=== PATIENT | female | born 1940 | race Caucasian/White ===

== ENCOUNTER 2017-04-09 14:59 | Emergency (ER) | payer MEDICARE, OTHER ==
[2017-04-09 15:20] VITALS: BP 143/69
--- NOTE | 2017-04-09 16:31 | EDM.PDOC ---
ED HPI GENERAL MEDICAL PROBLEM - General Chief Complaint: Upper Extremity Injury/Pain Stated Complaint: ARM PAIN Time Seen by Provider: 04/09/17 15:48 Source of Information: Reports: Patient History Limitations: Reports: No Limitations - History of Present Illness INITIAL COMMENTS - FREE TEXT/NARRATIVE: Patient reports insertion of AV fistula on 04/04/17. For the last 2-3 days she is having numbness, tingling, cold fingers to the left side. No fever or chills , no nausea, vomiting, LOC, SOB, urinary and bowel habits normal. Forearm is red, swollen, hot, firm. She does not have a dialysis catheter, nor has the fistula been used for dialysis. No further complaints at this time. Onset: Gradual Onset Date: 04/07/17 Duration: Getting Worse Location: Reports: Upper Extremity, Left Severity: Moderate left inner middle arm Pain Score (Numeric/FACES): 6 - Related Data Allergies Allergy/AdvReac Type Severity Reaction Status Date / Time Latex, Natural Rubber Allergy Redness Verified 04/09/17 15:12 codeine AdvReac Nausea and Verified 04/09/17 15:12 Vomiting diazepam [From Valium] AdvReac Nausea and Verified 04/09/17 15:12 Vomiting seasonal Allergy Shortness Uncoded 04/09/17 15:12 of Breath tape Allergy Redness Uncoded 04/09/17 15:12 Home Meds: Home Meds Albuterol Sulfate [Albuterol Sulfate HFA] 2 inhalation IH Q4H PRN 03/19/14 [ History] Aspirin [Halfprin] 81 mg PO DAILY 03/19/14 [History] Cholecalciferol (Vitamin D3) [Vitamin D] 2,000 unit PO DAILY 03/19/14 [History] Furosemide [Lasix] 40 mg PO BID 03/19/14 [History] Hydrocodone/Acetaminophen [Hydrocodone-Acetaminophen 5-325] 1 tab PO QID PRN [History] Isosorbide Mononitrate [Imdur] 60 mg PO DAILY 03/19/14 [History] Levothyroxine 125 mcg PO DAILY 03/19/14 [History] Nitroglycerin [Nitrostat] 0.4 mg SL ASDIRECTED PRN 03/19/14 [History] Pramipexole Di-HCl [Mirapex] 0.75 mg PO ACBED 03/19/14 [History] atorvaSTATin [Lipitor] 10 mg PO BEDTIME 03/19/14 [History] Potassium Chloride [Klor-Con 10] 20 meq PO BID 06/20/15 [History] Fluticasone Propionate [Flovent HFA 44 mcg] 10.6 gm IH BID PRN 04/13/16 [ History] Spironolactone [Aldactone] 1 tab PO DAILY 04/13/16 [History] Past Medical History Cardiovascular 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: Heart Failure, High Cholesterol Genitourinary 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: Renal Disease Other Genitourinary History: fistula placed in left arm 04/04/17 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: Musculoskeletal 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: Back Pain, Chronic, Osteoarthritis Endocrine/Metabolic 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: Hypothyroidism Dermatologic 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: Other (See Below) Other Dermatologic History: bruises easily - Past Surgical History HEENT Surgical 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: Cataract Surgery, Tonsillectomy Female Surgical 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: Hysterectomy Endocrine Surgical 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: Thyroidectomy Social & Family History - Family History Family Medical History: Noncontributory - Tobacco Use Smoking Status *Q: Never Smoker - Recreational Drug Use Recreational Drug Use: No Review of Systems - Review of Systems Review Of Systems: See Below Constitutional: Reports: No Symptoms Eyes: Reports: No Symptoms Ears: Reports: No Symptoms Nose: Reports: No Symptoms Mouth/Throat: Reports: No Symptoms Respiratory: Reports: No Symptoms Cardiovascular: Reports: No Symptoms, Other (cold left hand) GI/Abdominal: Reports: No Symptoms Genitourinary: Reports: No Symptoms Musculoskeletal: Reports: Arm Pain Skin: Reports: Erythema, Wound, Change in Color Neurological: Reports: Numbness, Tingling Psychiatric: Reports: No Symptoms ED EXAM, GENERAL - Physical Exam Exam: See Below Exam Limited By: No Limitations General Appearance: Alert, WD/WN, No Apparent Distress Eye Exam: Bilateral Eye: EOMI, PERRL Head: Atraumatic, Normocephalic Neck: Normal Inspection Respiratory/Chest: No Respiratory Distress, Lungs Clear, Normal Breath Sounds, No Accessory Muscle Use, Chest Non-Tender Cardiovascular: Normal Peripheral Pulses, Regular Rate, Rhythm, No Edema, No Gallop, No JVD, No Murmur Peripheral Pulses: 2+: Radial (L), Radial (R), Posterior Tibial (L), Posterior Tibial (R), Dorsalis Pedis (L), Dorsalis Pedis (R) GI/Abdominal: Normal Bowel Sounds, Soft, Non-Tender, No Organomegaly Extremities: Slow Capillary Refill, Arm Pain Neurological: Alert, Oriented, CN II-XII Intact, Normal Cognition, Normal Reflexes, Sensory/Motor Deficit (numbness/tingling/cold hands to left arm/hand) Psychiatric: Normal Affect, Normal Mood Skin Exam: Cool (cool left hand), Ecchymosis, Erythema, Increased Warmth (area surrounding fistula), Wound/Incision Course - Vital Signs Last Recorded V/S: Last Vital Signs Temp 36.5 C 04/09/17 15:15 Pulse 82 04/09/17 15:15 Resp 16 04/09/17 15:15 BP 143/69 H 04/09/17 15:15 Pulse Ox 94 L 04/09/17 15:15 - Orders/Labs/Meds Orders: Active Orders 24 hr Category Date Time Status CBC WITH AUTO DIFF [HEME] Stat Lab 04/09/17 16:02 Ordered INR,PT,PROTHROMBIN TIME [COAG] Stat Lab 04/09/17 15:54 Ordered Departure - Departure Time of Disposition: 16:42 Disposition: Against Medical Advice 07 Condition: Fair Clinical Impression: Cellulitis of left elbow, AV fistula infection - Discharge Information Instructions: Cellulitis, Adult, [id number] Forms: ED Department Discharge Additional Instructions: You need to get to the [facility] emergency room to have your fistula evaluated with ultrasound and IV antibiotics started. I do not agree or advise you to go home right now. If you have any further difficulties with your arm, I would also advice going to the [facility] emergency room. I spoke with Dr. Escobar in CV surgery today. I hope that you can have some additional planning or options for your son's care when your health needs to be addressed. You can have an infection in your fistula, and the blood flow could also be getting clotted. If the fistula stops having good blood flow they will not be able to use it and you will have to have a new one. Please call with any questions or concerns. - Problem List & Annotations (1) AV fistula infection SNOMED Code(s): 067118564 Code(s): T82.7XXA - INFECT/INFLM REACT D/T OTH CARDI/VASC DEV/IMPLNT/GRFT, INIT Status: Acute Priority: Medium Current Visit: Yes Qualifiers: Encounter type: initial encounter Qualified Code(s): T82.7XXA - Infection and inflammatory reaction due to other cardiac and vascular devices, implants and grafts, initial encounter (2) Cellulitis of left elbow SNOMED Code(s): 438204717 Code(s): L03.114 - CELLULITIS OF LEFT UPPER LIMB Status: Acute Priority: Medium Current Visit: Yes - Problem List Review Problem List Initiated/Reviewed/Updated: Yes - My Orders Last 24 Hours: My Active Orders 04/09/17 15:54 INR,PT,PROTHROMBIN TIME [COAG] Stat 04/09/17 16:02 CBC WITH AUTO DIFF [HEME] Stat - Assessment/Plan Last 24 Hours: My Active Orders 04/09/17 15:54 INR,PT,PROTHROMBIN TIME [COAG] Stat 04/09/17 16:02 CBC WITH AUTO DIFF [HEME] Stat Assessment:: left av fistula infection cellulitis left elbow Plan: You need to get to the [facility] emergency room to have your fistula evaluated with ultrasound and IV antibiotics started. I do not agree or advise you to go home right now. If you have any further difficulties with your arm, I would also advice going to the [facility] emergency room. I spoke with Dr. Escobar in CV surgery today. I hope that you can have some additional planning or options for your son's care when your health needs to be addressed. You can have an infection in your fistula, and the blood flow could also be getting clotted. If the fistula stops having good blood flow they will not be able to use it and you will have to have a new one. Please call with any questions or concerns.
== END 2017-04-09 16:45 | disposition left against medical advice (07) ==
LOC: VM.ED 14:59
DX: L03.114 Cellulitis of left upper limb (principal); T82.7XXA Infection and inflammatory reaction due to other cardiac and vascular devices, implants and grafts, initial encounter; I50.9 Heart failure, unspecified; E78.00 Pure hypercholesterolemia, unspecified; M81.0 Age-related osteoporosis without current pathological fracture; E89.0 Postprocedural hypothyroidism; Z79.82 Long term (current) use of aspirin; Z79.899 Other long term (current) drug therapy; Z98.49 Cataract extraction status, unspecified eye; Z90.710 Acquired absence of both cervix and uterus; Z88.5 Allergy status to narcotic agent; Z91.040 Latex allergy status; Z91.048 Other nonmedicinal substance allergy status
CPT/HCPCS: 36415; 85025; 85610; 99284; 99284-GF

== ENCOUNTER 2017-04-09 19:28 | Emergency (ER) | payer MEDICARE, OTHER ==
--- NOTE | 2017-04-09 19:51 | EDM.PDOC ---
ED HPI GENERAL MEDICAL PROBLEM - General Chief Complaint: Upper Extremity Injury/Pain Stated Complaint: left arm pain/numbness/cold Time Seen by Provider: 04/09/17 19:44 - History of Present Illness INITIAL COMMENTS - FREE TEXT/NARRATIVE: Please see prior exam and assessment from earlier today when she left AMA. She needed to make sure her son had someone to take care of him. She has no new complaints but is here for transfer to the ED at [facility] in [place]. left arm/shoulder Pain Score (Numeric/FACES): 5 - Related Data Allergies Allergy/AdvReac Type Severity Reaction Status Date / Time Latex, Natural Rubber Allergy Redness Verified 04/09/17 19:30 codeine AdvReac Nausea and Verified 04/09/17 19:30 Vomiting diazepam [From Valium] AdvReac Nausea and Verified 04/09/17 19:30 Vomiting seasonal Allergy Shortness Uncoded 04/09/17 19:30 of Breath tape Allergy Redness Uncoded 04/09/17 19:30 Home Meds: Home Meds Albuterol Sulfate [Albuterol Sulfate HFA] 2 inhalation IH Q4H PRN 03/19/14 [ History] Aspirin [Halfprin] 81 mg PO DAILY 03/19/14 [History] Cholecalciferol (Vitamin D3) [Vitamin D] 2,000 unit PO DAILY 03/19/14 [History] Furosemide [Lasix] 40 mg PO BID 03/19/14 [History] Hydrocodone/Acetaminophen [Hydrocodone-Acetaminophen 5-325] 1 tab PO QID PRN [History] Isosorbide Mononitrate [Imdur] 60 mg PO DAILY 03/19/14 [History] Levothyroxine 125 mcg PO DAILY 03/19/14 [History] Nitroglycerin [Nitrostat] 0.4 mg SL ASDIRECTED PRN 03/19/14 [History] Pramipexole Di-HCl [Mirapex] 0.75 mg PO ACBED 03/19/14 [History] atorvaSTATin [Lipitor] 10 mg PO BEDTIME 03/19/14 [History] Potassium Chloride [Klor-Con 10] 20 meq PO BID 06/20/15 [History] Fluticasone Propionate [Flovent HFA 44 mcg] 10.6 gm IH BID PRN 04/13/16 [ History] Spironolactone [Aldactone] 1 tab PO DAILY 04/13/16 [History] Past Medical History Cardiovascular 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: Heart Failure, High Cholesterol Genitourinary 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: Renal Disease Other Genitourinary History: fistula placed in left arm 04/04/17 to 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: Musculoskeletal 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: Back Pain, Chronic, Osteoarthritis Endocrine/Metabolic 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: Hypothyroidism Dermatologic 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: Other (See Below) Other Dermatologic History: bruises easily - Past Surgical History HEENT Surgical 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: Cataract Surgery, Tonsillectomy Female Surgical 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: Hysterectomy Endocrine Surgical 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: Thyroidectomy Social & Family History - Family History Family Medical History: Noncontributory - Tobacco Use Smoking Status *Q: Never Smoker - Recreational Drug Use Recreational Drug Use: No Review of Systems - Review of Systems Review Of Systems: ROS reveals no pertinent complaints other than HPI. ED EXAM, GENERAL - Physical Exam Exam: Not Obtained Course - Vital Signs Last Recorded V/S: Last Vital Signs Temp 36.8 C 04/09/17 19:31 Pulse 88 04/09/17 19:31 Resp 20 04/09/17 19:31 BP 161/82 H 04/09/17 19:31 Pulse Ox 95 04/09/17 19:31 - Re-Assessments/Exams Free Text/Narrative Re-Assessment/Exam: 04/09/17 19:[address] Rice at [facility]. Departure - Departure Time of Disposition: 20:15 Disposition: DC/Tfer to [facility] 02 Clinical Impression: Cellulitis of left elbow - Discharge Information Forms: ED Department Discharge, Interfacility Transfer CHRISTIE
== END 2017-04-09 20:15 | disposition short-term general hospital (02) ==
LOC: VM.ED 19:28
CPT/HCPCS: 36415; 85025; 85610; 99284; 99284-GF

== ENCOUNTER 2017-12-18 08:00 | Inpatient (IN) | payer MEDICARE, OTHER ==
--- NOTE | 2017-12-18 08:18 | EDM.PDOC ---
ED HPI GENERAL MEDICAL PROBLEM - General Chief Complaint: Gastrointestinal Problem Stated Complaint: Nausea and Vomiting Time Seen by Provider: 12/18/17 08:07 Source of Information: Reports: Patient, RN, RN Notes Reviewed History Limitations: Reports: No Limitations - History of Present Illness INITIAL COMMENTS - FREE TEXT/NARRATIVE: Patient presents the emergency room at [facility] with a one-day history of severe nausea and vomiting with concurrent diarrhea. The patient denies any focal neurological deficits. The patient denies any chest pain or shortness of breath. The patient is not sure how may times she has vomited. The patient states she's had several stools of diarrhea. The patient states that the vomitus was bile. The patient denies any changes in any medicines. The patient denies any contacts with similar symptoms. Patient is not sure why she is feeling this way. Upon arrival patient has severe dry heaves. No stools. The patient feels severely nauseated. Otherwise no other concerns. Onset Date: 12/17/17 Location: Reports: Abdomen Quality: Reports: Dull Severity: Mild Improves with: Reports: None Worsens with: Reports: None Context: Denies: Sick Contact, Trauma Associated Symptoms: Reports: Nausea/Vomiting - Related Data Allergies Allergy/AdvReac Type Severity Reaction Status Date / Time Latex, Natural Rubber Allergy Redness Verified 11/08/17 12:49 codeine AdvReac Nausea and Verified 11/08/17 12:49 Vomiting diazepam [From Valium] AdvReac Nausea and Verified 11/08/17 12:49 Vomiting seasonal Allergy Shortness Uncoded 11/08/17 12:49 of Breath tape Allergy Redness Uncoded 11/08/17 12:49 Home Meds: Home Meds Albuterol Sulfate [Albuterol Sulfate HFA] 2 inhalation IH Q4H PRN 03/19/14 [ History] Aspirin [Halfprin] 81 mg PO DAILY 03/19/14 [History] Cholecalciferol (Vitamin D3) [Vitamin D] 2,000 unit PO DAILY 03/19/14 [History] Furosemide [Lasix] 40 - 80 mg PO BID 03/19/14 [History] Hydrocodone/Acetaminophen [Hydrocodone-Acetaminophen 5-325] 1 tab PO QID PRN [History] Isosorbide Mononitrate [Imdur] 60 mg PO DAILY 03/19/14 [History] Levothyroxine 125 mcg PO DAILY 03/19/14 [History] Nitroglycerin [Nitrostat] 0.4 mg SL ASDIRECTED PRN 03/19/14 [History] Pramipexole Di-HCl [Mirapex] 0.75 mg PO ACBED 03/19/14 [History] atorvaSTATin [Lipitor] 10 mg PO BEDTIME 03/19/14 [History] Potassium Chloride [Klor-Con 10] 20 meq PO BID 06/20/15 [History] Fluticasone Propionate [Flovent HFA 44 mcg] 10.6 gm IH BID PRN 04/13/16 [ History] Spironolactone [Aldactone] 1 tab PO DAILY 04/13/16 [History] Darbepoetin Giovanni in Polysorbat [Aranesp] 25 mcg IJ ASDIRECTED 08/10/17 [History] Doxercalciferol [Hectorol] 4 mcg IV ASDIRECTED 08/10/17 [History] Metolazone [Metolazone] 1 tab PO ASDIRECTED 08/10/17 [History] Ondansetron HCl [Ondansetron] 1 tab PO Q6H PRN 08/10/17 [History] Sodium Ferric Gluconate 12.5 mg IV ASDIRECTED 08/10/17 [History] Past Medical History Cardiovascular 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: Heart Failure, High Cholesterol Genitourinary 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: Renal Disease Other Genitourinary History: fistula placed in left arm 04/04/17 to 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: Musculoskeletal 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: Back Pain, Chronic, Osteoarthritis Endocrine/Metabolic 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: Hypothyroidism Dermatologic 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: Other (See Below) Other Dermatologic History: bruises easily - Past Surgical History HEENT Surgical 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: Cataract Surgery, Tonsillectomy Female Surgical 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: Hysterectomy Endocrine Surgical 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: Thyroidectomy Social & Family History - Family History Family Medical History: Noncontributory - Tobacco Use Smoking Status *Q: Current Every Day Smoker Years of Tobacco use: 56 Packs/Tins Daily: 1 Used Tobacco, but Quit: No Second Hand Smoke Exposure: No - Caffeine Use Caffeine Use: Reports: Coffee - Recreational Drug Use Recreational Drug Use: No - Living Situation & Occupation Living situation: Reports: Occupation: Disabled ED ROS GENERAL - Review of Systems Review Of Systems: See Below Constitutional: Reports: Decreased Appetite. Denies: Fever, Chills Respiratory: Denies: Shortness of Breath, Cough Cardiovascular: Denies: Chest Pain, Palpitations GI/Abdominal: Reports: Abdominal Pain, Diarrhea, Nausea, Vomiting Skin: Reports: No Symptoms Neurological: Denies: Dizziness, Headache ED EXAM, GI/ABD - Physical Exam Exam: See Below Exam Limited By: No Limitations General Appearance: Alert, Moderate Distress (due to dry heaves), Obese Respiratory/Chest: No Respiratory Distress, Lungs Clear, Normal Breath Sounds Cardiovascular: Normal Peripheral Pulses, Regular Rate, Rhythm GI/Abdominal Exam: Tender, Abnormal Bowel Sounds (Hypoactive). No: Distended, Guarding Neurological: Alert, Oriented Skin Exam: Warm, Intact, Normal Color, No Rash Course - Orders/Labs/Meds Orders: Active Orders 24 hr Category Date Time Status Abdomen 2V AP Flat Upright [CR] Stat Exams 12/18/17 08:31 Taken Potassium Chloride [KCL 20 MEQ in Water 50 ML] 20 meq Med 12/18/17 09:01 Active Premix Bag 1 bag IV ONETIME Sodium Chloride 0.9% [Saline Flush] Med 12/18/17 08:19 Active 10 ml FLUSH ASDIRECTED PRN Peripheral IV Insertion Adult [OM.PC] Routine Oth 12/18/17 08:19 Ordered Medication Orders Potassium Chloride 20 meq/ (Premix) 50 mls @ 50 mls/hr IV ONETIME ONE Stop: 12/18/17 10:00 Sodium Chloride (Saline Flush) 10 ml FLUSH ASDIRECTED PRN PRN Reason: Keep Vein Open Labs: Laboratory Tests 12/18/17 12/18/17 12/18/17 Range/Units 08:15 08:15 08:15 WBC 10.5 H (4.0-10.0) x10^3/uL RBC 4.52 (4.00-5.50) x10^6/uL Hgb 15.3 (12.0-16.0) g/dL Hct 44.3 (33.0-47.0) % MCV 98.0 H (78.0-93.0) fL MCH 33.8 H (26.0-32.0) pg MCHC 34.5 (32.0-36.0) g/dL RDW Coeff of Pritesh 12.2 (10.0-15.0) % Plt Count 293 (130-400) x10^3/uL Neut % (Auto) 79.3 (50.0-80.0) % Lymph % (Auto) 16.6 L (25.0-50.0) % Lane % (Auto) 3.8 (2.0-11.0) % Eos % (Auto) 0.1 (0.0-4.0) % Baso % (Auto) 0.2 (0.2-1.2) % Sodium 139 (136-145) mmol/L Potassium 2.5 L* (3.5-5.1) mmol/L Chloride 95 L (98-107) mmol/L Carbon Dioxide 32 (21-32) mmol/L BUN 41 H (7-18) mg/dL Creatinine 1.6 H (0.55-1.02) mg/dL Est Cr Clr Drug Dosing TNP Estimated GFR (MDRD) 31 Glucose 188 H (74-106) mg/dL Lactic Acid 2.0 (0.4-2.0) mmol/L Calcium 9.4 (8.5-10.1) mg/dL Corrected Calcium 9.72 (8.5-10.1) mg/dL Phosphorus 2.0 L (2.6-4.7) mg/dL Magnesium 3.2 H (1.8-2.4) mg/dL Total Bilirubin 0.8 (0.2-1.0) mg/dL AST 27 (15-37) U/L ALT 29 (14-59) U/L Alkaline Phosphatase 140 H (46-116) U/L C-Reactive Protein 1.0 H (<=0.9) mg/dL Total Protein 8.2 (6.4-8.2) g/dL Albumin 3.6 (3.4-5.0) g/dL Globulin 4.6 Albumin/Globulin Ratio 0.78 Amylase 30 (25-115) U/L Lipase 108 (73-393) U/L Meds: Medications Generic Name Dose Route Start Last Admin Trade Name Freq PRN Reason Stop Dose Admin Potassium Chloride 20 meq/ 50 mls @ 50 mls/hr 12/18/17 09:01 Premix IV 12/18/17 10:00 ONETIME ONE Sodium Chloride 10 ml 12/18/17 08:19 Saline Flush FLUSH ASDIRECTED PRN Keep Vein Open Discontinued Medications Generic Name Dose Route Start Last Admin Trade Name Liseth PRN Reason Stop Dose Admin Lactated Ringer's 1,000 mls @ 999 mls/hr 12/18/17 08:20 12/18/17 08:20 Ringers, Lactated IV 12/18/17 09:20 999 mls/hr ONETIME ONE Administration Ondansetron HCl 4 mg 12/18/17 08:20 12/18/17 08:25 Zofran IVPUSH 12/18/17 08:21 4 mg ONETIME ONE Administration Ondansetron HCl 4 mg 12/18/17 08:46 12/18/17 08:52 Zofran IVPUSH 12/18/17 08:47 4 mg ONETIME ONE Administration Departure - Departure Time of Disposition: 09:40 Disposition: Admitted As Inpatient 67 Condition: Good Clinical Impression: Hypokalemia Nausea and vomiting Qualifiers: Vomiting type: unspecified Vomiting Intractability: non-intractable Qualified Code(s): R11.2 - Nausea with vomiting, unspecified - Discharge Information ED Communication - ED Communication Date/Time Date: 12/18/17 Time Called: 09:37 - Discussed Case With (1) Discussed Case With (1): Admitting Provider Person/s Notified (1): Germaine Carbajal - Conversation Summary Admitting Provider Agreed to Patient's Admission: Yes Patient Aware of Amendments fo Care Plan: Yes - Problem List Review Problem List Initiated/Reviewed/Updated: Yes - My Orders Last 24 Hours: My Active Orders 12/18/17 08:19 Sodium Chloride 0.9% [Saline Flush] 10 ml FLUSH ASDIRECTED PRN Peripheral IV Insertion Adult [OM.PC] Routine 12/18/17 08:31 Abdomen 2V AP Flat Upright [CR] Stat 12/18/17 09:01 Potassium Chloride [KCL 20 MEQ in Water 50 ML] 20 meq Premix Bag 1 bag IV ONETIME - Assessment/Plan Last 24 Hours: My Active Orders 12/18/17 08:19 Sodium Chloride 0.9% [Saline Flush] 10 ml FLUSH ASDIRECTED PRN Peripheral IV Insertion Adult [OM.PC] Routine 12/18/17 08:31 Abdomen 2V AP Flat Upright [CR] Stat 12/18/17 09:01 Potassium Chloride [KCL 20 MEQ in Water 50 ML] 20 meq Premix Bag 1 bag IV ONETIME Assessment:: Hypokalemia Nausea and Vomiting Plan: Case discussed with Dr. Carbajal. Patient will be admitted acute for K replacement and N/V.
[2017-12-18] MEDS ORDERED: Sodium Chloride 0.9% 10 ML Syringe FLUSH PRN (08:19)
[2017-12-18] MEDS ORDERED: Lactated Ringers 1,000 ML IV ONE (08:20)
[2017-12-18] MEDS ORDERED: Ondansetron 4 MG/2 ML SDV IVPUSH ONE ×2 (08:20→08:46)
[2017-12-18 08:48] LABS: CHLORIDE,CL 95 mmol/L (98-107); SODIUM,NA 139 mmol/L (136-145)
[2017-12-18] MEDS ORDERED: Potassium Chloride 20 MEQ in Premix Bag 1 BAG IV ONE ×2 (09:01→19:02)
[2017-12-18] MEDS ORDERED: Sodium Chloride 0.9% 500 ML IV SCH ×2 (10:00)
[2017-12-18] MEDS ORDERED: Prochlorperazine 10 MG/2 ML SDV IV ONE (10:39)
[2017-12-18] MEDS ORDERED: Ondansetron 4 MG/2 ML SDV IVPUSH PRN (10:41)
[2017-12-18] MEDS ORDERED: Metoclopramide 10 MG/2 ML SDV IVPUSH PRN (11:14)
[2017-12-18] MEDS ORDERED: Promethazine 25 MG Tab PO PRN (11:15)
[2017-12-18] MEDS ORDERED: Nitroglycerin 0.4 MG Tab.SL SL PRN (11:18)
[2017-12-18] MEDS ORDERED: Prochlorperazine 10 MG/2 ML SDV IV PRN (11:26)
[2017-12-18] MEDS ORDERED: Acetaminophen/HYDROcodone 325-5 MG Tab PO PRN (11:47)
[2017-12-18] MEDS ORDERED: Mometasone Furoate Powder 220 MCG/Puff 14 Dose Inhaler INH PRN (12:00)
[2017-12-18] MEDS: Famotidine 20 MG/2 ML SDV IVPUSH SCH (12:16)
[2017-12-18] MEDS: Potassium Chloride 10 MEQ Tab.ER PO SCH ×2 (12:38→18:05)
[2017-12-18] MEDS ORDERED: Albuterol 0.083% 2.5 MG/3 ML Neb Soln INH PRN (15:00)
--- NOTE | 2017-12-18 15:21 | HP ---
CHIEF COMPLAINT: Nausea, vomiting, or diarrhea. HISTORY OF PRESENT ILLNESS: This is a 77-year-old female with diet-controlled diabetes and history of being on dialysis. She states for fluid, but off for the last several months, who comes in, unable to take her medications or really eat anything for the past 2 days. She thinks her symptoms started about evening, then all day Tuesday and Tuesday, she last vomited about 9 p.m. last evening, but states she pretty much had diarrhea constantly. It would be better to ask how long she has been out of the bathroom than in it by her report. She denies that she has had any severe stomach pain. She does take hydrocodone for chronic pain on a p.r.n. basis, maybe up to 3 times a day, but has not been able to do that lately either. She denies having any recent pain injections, but was [facility]. She was also seen on 12/[address] Landon who did start her on Zoloft, which she had been taking up until a few days ago when she became ill. She denies any fever. No headaches. No new redness or changes to her lower extremities, but she does have chronic edema there. She is on diuretics. Her potassium was found to be quite low at 2.5. In the emergency room, she was given 8 mg of Zofran and actually felt quite well after that but then got severely nauseated again, having dry heaves and was given Compazine which seemed to help some. SOCIAL HISTORY: She otherwise socially is . She recently lost her son. She smokes, but denied any alcohol use in the past. She is retired. FAMILY HISTORY: Her father is . He did have some alcohol and drug problems by report. ALLERGIES: Latex causes sores. Codeine, nausea, vomiting, or diarrhea. Tape causes rash and hives. Valium causes stomach pain. MEDICATIONS: Her medication list is reviewed through the clinic. She has Zoloft 25 mg daily, again started on 12/07. Zofran p.r.n., Lipitor 10 mg daily, Flovent as needed. Mirapex 2 tablets at bedtime, 1.5 mg total. Potassium 20 mEq twice daily, nitroglycerin 0.4 every 5 minutes as needed for chest pain, hydrocodone 10/325 3 times a day, Imdur 60 mg daily. Zaroxolyn 2.5 mg Tuesday, Tuesday, Tuesday. Aldactone 25 mg daily, Lasix 80 mg twice daily, levothyroxine 125 daily, vitamin D 2000 units daily, aspirin 81 mg daily. PAST SURGICAL HISTORY: Hysterectomy, tonsils and arm surgery for fistula. PAST MEDICAL HISTORY: Chronic kidney disease, stage IV, currently off dialysis. She used to be on NSAIDs and RICHA inhibitors, but no longer takes them. Vitamin D deficiency; leukocytosis; peripheral edema, multifactorial; hypothyroidism; sciatica into the right leg; generalized osteoarthritis; smoking; chronic diastolic heart failure; EF 65% back in 2013 and it is also that in 2016; mild mitral regurgitation; essential hypertension; type 2 diabetes for over 10 years, diet-controlled; chronic dyspepsia with history of gastritis, not currently on Prilosec; iron deficiency anemia. Her recent hemoglobin was 14.1 in the clinic; creatinine was 1.49 on 11/30; major depressive disorder; spinal stenosis; subclavian artery stenosis on the last; peripheral vascular disease and carotid artery disease, but no documentation or report of coronary artery disease; probable emphysema; fibromyalgia syndrome. REVIEW OF SYSTEMS: General: The patient has had weight loss due to not being able to eat. She has had fatigue. HEENT: No sore throat cardiac. Cardiac: No chest pain. Respiratory: She has not had cough or shortness of breath. GI: She has had nausea, vomiting, diarrhea. She actually had lost 10 pounds in the clinic in the last 2 months. Musculoskeletal: She does have chronic pain in her back and legs. There have been no changes there. She denies any new neck pain or headaches. Psychiatric: She has been more depressed lately because of losing her son. Otherwise, all systems reviewed and found to be negative unless otherwise stated. PHYSICAL EXAMINATION: Vital Signs: On admission, her weight was 74.3 kg, temp 96, blood pressure 131/86, pulse 76, respiratory rate 24, O2 99 on room air. General: She is in no acute distress. Heart: Regular rate and rhythm. S1, S2 without murmur. Respiratory: Lungs sounds are clear to auscultation bilaterally without crackles or wheezes. Abdomen: Slightly distended but positive bowel sounds and nontender. She is in no pain but is in a little distress over her nausea. We did talk about trying some IV pain medicine, but she states she did not feel like she needed that. Extremities: She does have some lymphedema changes over both ankles. Just trace edema. Mild redness. No drainage or open wounds. I think this is chronic. No sign of acute infection. Mental status: Alert and orientated x3. LABORATORY WORK: White count 10.5, hemoglobin 15.3, platelets 293. Sodium 139, potassium 2.5, chloride 95, bicarb 32, BUN 41, creatinine 1.6, glucose 188, lactic 2, calcium 9.4, phosphorus 2, magnesium 3.2, AST 27, ALT 29, alkaline phosphatase 140, albumin 3.6, lipase 108, amylase 30. UA showed 0-5 rbcs and wbcs, negative for ketones. Abdominal x-ray was showing some stool in the left colon, but nonspecific bowel pattern. No bowel obstruction felt to be present. ASSESSMENT: 1. Nausea, vomiting, and diarrhea with recent Zoloft since 12/07/2016. It is possible that this could have contributed to her symptoms or she has just viral gastroenteritis. At this point, we will treat her supportively. She was dehydrated, so we gave her IV fluids. We will replace potassium IV and orally and repeat later this evening. 2. Hypokalemia due to diuretics and nausea, vomiting, and diarrhea. At this point, we will hold all diuretics, give her oral potassium, IV and recheck later. We will do this cautiously given her chronic kidney disease. 3. Chronic kidney disease stage 4. She is really at her baseline. We will watch her closely for any fluid retention. She has received just over 1 L of fluid. We will monitor her off IV fluids for now. 4. Severe depression. Zoloft will be held. She can follow up with her primary care provider regarding other options. 5. Essential hypertension controlled. We will continue her Imdur. We will hold her diuretics and restart when able. 6. Hyperlipidemia. I am going to hold her Lipitor and I will check a CK level. 7. Smoking. She is encouraged to quit. 8. Diet-controlled diabetes. We will do q.i.d. Accu-Cheks. PLAN: At this point, the patient is admitted for acute cares. I think her elevation in white count is probably due to vomiting. No source of a bacterial infection found. I think this could be viral gastroenteritis or reaction to medications. We need to treat her in the hospital with IV and oral potassium aggressively. We will monitor her with telemetry given her low levels as she does elect to be a code level 1. For DVT prophylaxis, I have order her some Lovenox. I will order her some Pepcid given her history of gastritis. Anticipate that she will need to stay 2 nights for further cares. We will reassess lab work also again in the morning. MKA: 12/18/2017 11:38:24 MODL: 12/18/2017 15:12:57 /[id number]
[2017-12-18] MEDS ORDERED: PRAMIPEXOLE DI HCL 0.75 MG PO SCH (17:00)
--- NOTE | 2017-12-18 19:01 | PCM.SN ---
- Free Text/Narrative Note: Patient refused first oral potassium dose. Give another 40 meq oral instead of just 20 tonight and another 20 IV KCL. Recheck in the AM.
[2017-12-18] MEDS ORDERED: Potassium Chloride 10 MEQ Tab.ER PO ONE (19:02)
[2017-12-18] MEDS ORDERED: Pramipexole 0.5 MG Tab PO SCH (20:00)
[2017-12-18] MEDS: Menthol/Methyl Salicylate 85 GM Tube TOP PRN (22:15)
[2017-12-19] MEDS ORDERED: Levothyroxine 125 MCG Tab PO SCH (07:00)
[2017-12-19] MEDS: Famotidine 20 MG/2 ML SDV IVPUSH SCH (07:40)
[2017-12-19] MEDS: Potassium Chloride 10 MEQ Tab.ER PO SCH (07:40)
[2017-12-19] MEDS: Menthol/Methyl Salicylate 85 GM Tube TOP PRN (07:48)
[2017-12-19] MEDS ORDERED: Aspirin 81 MG Tab.EC PO SCH (08:00)
[2017-12-19] MEDS ORDERED: Isosorbide Mononitrate 60 MG Tab.ER PO SCH (08:00)
[2017-12-19] MEDS ORDERED: Enoxaparin 30 MG/0.3 ML Syringe SUBCUT SCH (08:00)
[2017-12-19 09:20] VITALS: BP 128/78
[2017-12-19] MEDS ORDERED: Potassium Chloride 10 MEQ Tab.ER PO SCH (12:00)
--- NOTE | 2017-12-20 06:59 | DISCH ---
PRIMARY DIAGNOSES: 1. Acute gastroenteritis. 2. Severe hypokalemia. 3. Dehydration. 4. Chronic kidney disease. 5. Type 2 diabetes mellitus. 6. Chronic back pain. 7. Depression. SUMMARY OF HOSPITAL COURSE: The patient presented to emergency room and was very weak not being able to keep anything down. She had some loose stools. No fever or chills. She had been given some IV fluids, given Phenergan to help with the nausea. She had no diarrhea since being here. She gradually got better. Her potassium was noted to be down to 2.3 on admission. She received IV potassium as well as oral potassium. Her blood sugars were stable. The patient's potassium had improved up to 2.7. By 12/19 she was very eager to go home. She was tolerating clear liquids and had no evidence of further diarrhea and she was able to take her oral pills. So it was felt that this could be further replaced as an outpatient for her. Patient was placed on Lovenox for DVT prophylaxis. DISCHARGE MEDICATIONS: She will be on albuterol 2 puffs q.4.hours p.r.n. shortness of breath, aspirin 81 mg 1 pill a day, Flovent 1 puff b.i.d., isosorbide mononitrate 60 mg 1 pill daily, levothyroxine 125 mcg 1 pill daily, Icy Hot topical every 2 hours p.r.n., nitroglycerin 0.4 sublingual q.5.minutes x3 p.r.n., potassium chloride 10 mEq 2 pills 3 times a day, Mirapex 0.75 mg 2 pills at bedtime, promethazine 25 mg 2 pills every 6 hours p.r.n. nausea, Lipitor 10 mg 1 pill at bedtime, vitamin D 2000 units 1 pill daily, Aranesp 25 mcg/mL, she receives injections p.r.n. per Nephrology, Flovent 2 puffs b.i.d., furosemide 80 mg 1 pill twice a day, Hydrocodone/acetaminophen 10/325 one pill 3 times a day as needed, metolazone 2.5 mg 1 pill daily as needed for fluid, sertraline 25 mg 1 pill daily, spironolactone 25 mg 1 pill daily. INSTRUCTIONS: The patient is to come in to have a potassium level drawn 12/21/2017. She is to see me in the clinic in 1 weeks time. She can use her Lasix to resume as needed for fluid retention as well as the metolazone. I would like to see her back in a week's time for reevaluation. LABORATORY DATA: On admission showed that her white blood cell count was 10.5, hemoglobin 15.5, platelets 293 with sodium 139, potassium 2.5, creatinine 1.6, GFR 31, glucose 188, lactic acid 2.0, calcium of 9.7, phosphorus 2.0, magnesium 3.2. AST 27, ALT 29, alkaline phosphatase 140, CRP 1.0, albumin 3.6, amylase 30, lipase 108. Urinalysis came back normal with epithelial cells. On recheck, potassium went down to 2.4, glucose was monitored. By 12/19 her white blood cell count was slightly elevated at 13.3, hemoglobin was 15.2, platelets 250 with 81 segs, 12 lymphocytes. Sodium was 144, potassium 2.7, improved. Creatinine improved at 1.3, GFR improved to 40, glucose 140, calcium 9.0, magnesium was 2.9. DISCHARGE INSTRUCTIONS: The patient's diet should be heart healthy diet. It is not felt that home health needs to follow her. Her code level status at the time of discharge was full code. The patient was able to tolerate solid food before discharge. She was also told that she can take Imodium if she does have diarrhea which is available [id number] and we did switch her formulation of her potassium as she prefers the smaller pills as they are easier to swallow. So we will switch her to the 10 mEq strength size instead of 20 mEq strength size. GM12/19/2017 08:40:36 MODL: 12/20/2017 03:55:53 /[id number]
== END 2017-12-19 11:00 | disposition home or self-care (01) | DRG 392 ==
LOC: VM.ED 08:00 → VM.MS 09:38
PROVIDERS: ADMIT Internal Medicine; ATTEND Family Medicine
DX: K52.9 Noninfective gastroenteritis and colitis, unspecified (principal); R11.2 Nausea with vomiting, unspecified; I50.9 Heart failure, unspecified; E78.00 Pure hypercholesterolemia, unspecified; N28.9 Disorder of kidney and ureter, unspecified; E03.9 Hypothyroidism, unspecified; N18.4 Chronic kidney disease, stage 4 (severe); E87.6 Hypokalemia; E86.0 Dehydration; E11.9 Type 2 diabetes mellitus without complications; E78.5 Hyperlipidemia, unspecified; M54.9 Dorsalgia, unspecified; F32.9 Major depressive disorder, single episode, unspecified; Z91.040 Latex allergy status; F17.200 Nicotine dependence, unspecified, uncomplicated; Z88.8 Allergy status to other drugs, medicaments and biological substances; Z79.899 Other long term (current) drug therapy
CPT/HCPCS: 74019; 80053; 82150; 83605; 83690; 83735; 84100; 85025; 86140; 96361; 96374; 99284 ×2; J2405 ×2; J7120; 36415; 80048; 81001; 82550; 82962; 84132; 94760; A9270-GY; J0780; J1650; J3480; J7040; J7050; S0028

== ENCOUNTER 2018-01-17 12:50 | Emergency (ER) | payer MEDICARE, OTHER ==
--- NOTE | 2018-01-17 13:01 | EDM.PDOC ---
ED HPI GENERAL MEDICAL PROBLEM - General Chief Complaint: Respiratory Problem Stated Complaint: SOB; Chest Pain Time Seen by Provider: 01/17/18 12:50 Source of Information: Reports: Patient, EMS Notes Reviewed, Family, RN, RN Notes Reviewed History Limitations: Reports: No Limitations - History of Present Illness INITIAL COMMENTS - FREE TEXT/NARRATIVE: Patient is brought to the ED at [facility] via EMS for a chief complaint of SOB and substernal chest pressure. Patient states her symptoms started last evening. She felt so weak, she leaned against a wall and sat on the floor for most of the night. Patient complains of nausea. No vomiting. Patient was recently hospitalized for low potassium secondary to vomiting and diarrhea. Patient states her chest pressure is mid sternum and radiates to the left shoulder. No numbness, tingling, or paresthesia. Patient feels very anxious. No focal neurological complaints. Onset Date: 01/16/18 Onset Time: 22:00 Duration: Constant, Heavy Location: Reports: Chest Quality: Reports: Pressure Severity: Moderate Improves with: Reports: None Worsens with: Reports: None Context: Denies: Exercise, Sick Contact, Trauma Associated Symptoms: Reports: Shortness of Breath Treatments LOADING DOCK HAND: Reports: Other (see below) (none) Chest Pain Score (Numeric/FACES): 8 - Related Data Allergies Allergy/AdvReac Type Severity Reaction Status Date / Time Latex, Natural Rubber Allergy Redness Verified 01/17/18 13:35 codeine AdvReac Nausea and Verified 01/17/18 13:35 Vomiting diazepam [From Valium] AdvReac Nausea and Verified 01/17/18 13:35 Vomiting seasonal Allergy Shortness Uncoded 01/17/18 13:35 of Breath tape Allergy Redness Uncoded 01/17/18 13:35 Home Meds: Home Meds Albuterol Sulfate [Albuterol Sulfate HFA] 2 puff INH Q4H PRN 03/19/14 [History] Aspirin [Halfprin] 81 mg PO DAILY 03/19/14 [History] Cholecalciferol (Vitamin D3) [Vitamin D3] 2,000 unit PO DAILY 03/19/14 [History] Isosorbide Mononitrate [Imdur] 60 mg PO DAILY 03/19/14 [History] Nitroglycerin [Nitrostat] 0.4 mg SL ASDIRECTED PRN 03/19/14 [History] Pramipexole Di-HCl [Mirapex] 2 tab PO BEDTIME 03/19/14 [History] atorvaSTATin [Lipitor] 10 mg PO BEDTIME 03/19/14 [History] Fluticasone Propionate [Flovent HFA 44 mcg] 1 spray IH BID PRN 04/13/16 [ History] Spironolactone [Aldactone] 1 tab PO DAILY 04/13/16 [History] Darbepoetin Giovanni in [place] [Aranesp] 0 - 150 mcg SQ ASDIRECTED 08/10/17 [ History] Metolazone 1 tab PO ASDIRECTED 08/10/17 [History] Fluticasone Propionate [Flovent HFA] 2 puff INH BID 12/18/17 [History] Furosemide 1 tab PO BIDDIURETIC 12/18/17 [History] Hydrocodone/Acetaminophen [Hydrocodon-Acetaminophn 10-325] 1 tab PO TID [History] Levothyroxine Sodium [Synthroid] 1 tab PO DAILY 12/18/17 [History] Sertraline [Zoloft] 1 tab PO DAILY 12/18/17 [History] Potassium Chloride [Klor-Con 10] 20 meq PO TID #90 tab.er 12/19/17 [Rx] Promethazine [Phenergan] 25 mg PO Q6H PRN 01/17/18 [History] Past Medical History HEENT 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: Other (See Below) Other HEENT History: presbyopia-both,seasonal rhinitis Cardiovascular 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: CAD, Heart Failure, High Cholesterol, Hypertension, Other (See Below) Other Cardiovascular History: subclavian artery stenosis,heart palpitations, hypokalemia,hyperkalemia,sinus emma, PAD, varicose veins,peripheral edema Respiratory 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: Other (See Below) Other Respiratory History: panlobular emphysema Gastrointestinal 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: GERD, Other (See Below) Other Gastrointestinal History: nausea, dyspepsia Genitourinary 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: Chronic Renal Insuffiency, Dialysis, Renal Disease Other Genitourinary History: fistula placed in left arm 04/04/17 to start dialysis when this heals 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: Musculoskeletal 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: Back Pain, Chronic, Fibromyalgia, Osteoarthritis, Other (See Below) Other Musculoskeletal History: back pain,trochanteric bursitis, spinal stenosis , arthralgia of hip, arthropathy of lumbar facet joint, right side sciatica, arthritis of lumbar, bilat knees, chronic pain mgmt and contract, foot pain,RLS Neurological 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: Neuropathy, Diabetic, Other (See Below) Other Neuro History: emotional stress, Psychiatric 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: Other (See Below) Other Psychiatric History: insomia Endocrine/Metabolic 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: Diabetes, Type II, Hypothyroidism Hematologic 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: Iron Deficiency, Other (See Below) Other Hematologic History: vitamin d deficiency, leukocytosis Dermatologic 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: Other (See Below) Other Dermatologic History: bruises easily, dermatochalasis - Past Surgical History HEENT Surgical 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: Cataract Surgery, Tonsillectomy Female Surgical 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: Hysterectomy Endocrine Surgical 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: Thyroidectomy Social & Family History - Family History Family Medical History: Noncontributory - Tobacco Use Smoking Status *Q: Current Every Day Smoker Years of Tobacco use: 50 Packs/Tins Daily: 0.5 Used Tobacco, but Quit: No Second Hand Smoke Exposure: No - Caffeine Use Caffeine Use: Reports: Coffee, Soda - Recreational Drug Use Recreational Drug Use: No - Living Situation & Occupation Living situation: Reports: Occupation: Disabled ED ROS GENERAL - Review of Systems Review Of Systems: See Below Constitutional: Reports: Weakness, Fatigue. Denies: Fever, Chills Respiratory: Reports: Shortness of Breath, Wheezing, Cough. Denies: Sputum Cardiovascular: Reports: Chest Pain, Blood Pressure Problem, Dyspnea on Exertion , Edema (chronic LE), Palpitations GI/Abdominal: Denies: Abdominal Pain, Nausea, Vomiting Skin: Reports: No Symptoms Neurological: Denies: Dizziness, Headache, Numbness, Paresthesia, Tingling ED EXAM, GENERAL - Physical Exam Exam: See Below Exam Limited By: No Limitations General Appearance: Alert, Moderate Distress (SOB), Obese Respiratory/Chest: Respiratory Distress, Decreased Breath Sounds, Crackles ( bibasilar), Wheezing Cardiovascular: Regular Rate, Rhythm, Other (possible ST depression Leads V7-V9) Peripheral Pulses: 2+: Radial (L), Radial (R) GI/Abdominal: Normal Bowel Sounds, Soft, Non-Tender Extremities: Pedal Edema (chronic with venous stasis) Neurological: Alert, Oriented Skin Exam: Warm, Dry, Intact Course - Vital Signs Last Recorded V/S: Last Vital Signs Temp 36.3 C 01/17/18 13:00 Pulse 92 01/17/18 13:00 Resp 26 H 01/17/18 13:00 BP 102/75 01/17/18 13:00 Pulse Ox 91 L 01/17/18 13:00 - Orders/Labs/Meds Orders: Active Orders 24 hr Category Date Time Status EKG 12 Lead [EKG Documentation Completion] [RC] STAT Care 01/17/18 13:02 Active RT Aerosol Therapy [RC] ASDIRECTED Care 01/17/18 13:16 Active Chest 1V Frontal [CR] Stat Exams 01/17/18 13:02 Taken UA W/MICROSCOPIC [URIN] Stat Lab 01/17/18 13:03 Ordered Potassium Chloride [KCL 20 MEQ in Water 50 ML] 20 meq Med 01/17/18 14:31 Active Premix Bag 1 bag IV ONETIME Sodium Chloride 0.9% [Normal Saline] 500 ml Med 01/17/18 14:32 Active IV ONETIME Sodium Chloride 0.9% [Saline Flush] Med 01/17/18 13:02 Active 10 ml FLUSH ASDIRECTED PRN Peripheral IV Insertion Adult [OM.PC] Routine Oth 01/17/18 13:02 Ordered Medication Orders Potassium Chloride 20 meq/ (Premix) 50 mls @ 50 mls/hr IV ONETIME ONE Stop: 01/17/18 15:30 Sodium Chloride (Normal Saline) 500 mls @ 30 mls/hr IV ONETIME ONE Stop: 01/18/18 07:11 Sodium Chloride (Saline Flush) 10 ml FLUSH ASDIRECTED PRN PRN Reason: Keep Vein Open Labs: Laboratory Tests 01/17/18 01/17/18 01/17/18 Range/Units 13:23 13:23 13:23 WBC 11.4 H (4.0-10.0) x10^3/uL RBC 4.18 (4.00-5.50) x10^6/uL Hgb 14.1 (12.0-16.0) g/dL Hct 41.5 (33.0-47.0) % MCV 99.3 H (78.0-93.0) fL MCH 33.7 H (26.0-32.0) pg MCHC 34.0 (32.0-36.0) g/dL RDW Coeff of Pritesh 12.8 (10.0-15.0) % Plt Count 257 (130-400) x10^3/uL Neut % (Auto) 89.2 H (50.0-80.0) % Lymph % (Auto) 5.8 L (25.0-50.0) % [place] % (Auto) 4.5 (2.0-11.0) % Eos % (Auto) 0.2 (0.0-4.0) % Baso % (Auto) 0.3 (0.2-1.2) % PT (9.8-11.8) SEC INR (2.0-3.5) D-Dimer, Quantitative (<=0.58) mg/LFEU POC ABG pH (7.35-7.45) POC ABG pCO2 (35-45) mmHG POC ABG pO2 (80-105) mmHG POC ABG HCO3 (22-26) mmol/L POC ABG Total CO2 (23-27) mmol/L POC ABG O2 Sat (95-98) % POC ABG Base Excess (-2-3) mmol/L POC FiO2 Sodium 138 (136-145) mmol/L Potassium 2.8 L* (3.5-5.1) mmol/L Chloride 98 (98-107) mmol/L Carbon Dioxide 27 (21-32) mmol/L Anion Gap 15.8 (10-20) mmol/L BUN 32 H (7-18) mg/dL Creatinine 1.5 H (0.55-1.02) mg/dL Est Cr Clr Drug Dosing 25.23 mL/min Estimated GFR (MDRD) 34 Glucose 251 H (74-106) mg/dL Lactic Acid 1.9 (0.4-2.0) mmol/L Calcium 8.7 (8.5-10.1) mg/dL Corrected Calcium 9.34 (8.5-10.1) mg/dL Phosphorus 4.9 H (2.6-4.7) mg/dL Magnesium 2.1 (1.8-2.4) mg/dL Total Bilirubin 0.7 (0.2-1.0) mg/dL AST 37 (15-37) U/L ALT 37 (14-59) U/L Alkaline Phosphatase 131 H (46-116) U/L Creatine Kinase 53 (26-192) U/L POC Troponin I (0.00-0.08) ng/mL C-Reactive Protein 2.3 H (<=0.9) mg/dL NT-Pro-B Natriuret Pep 79084 H (<=450) pg/mL Total Protein 7.4 (6.4-8.2) g/dL Albumin 3.2 L (3.4-5.0) g/dL Globulin 4.2 Albumin/Globulin Ratio 0.76 POC Result Comm 01/17/18 01/17/18 01/17/18 Range/Units 13:23 13:39 14:06 WBC (4.0-10.0) x10^3/uL RBC (4.00-5.50) x10^6/uL Hgb (12.0-16.0) g/dL Hct (33.0-47.0) % MCV (78.0-93.0) fL MCH (26.0-32.0) pg MCHC (32.0-36.0) g/dL RDW Coeff of Pritesh (10.0-15.0) % Plt Count (130-400) x10^3/uL Neut % (Auto) (50.0-80.0) % Lymph % (Auto) (25.0-50.0) % [place] % (Auto) (2.0-11.0) % Eos % (Auto) (0.0-4.0) % Baso % (Auto) (0.2-1.2) % PT 10.7 (9.8-11.8) SEC INR 1.0 L (2.0-3.5) D-Dimer, Quantitative 4.32 H (<=0.58) mg/LFEU POC ABG pH 7.424 (7.35-7.45) POC ABG pCO2 48 H (35-45) mmHG POC ABG pO2 72 L (80-105) mmHG POC ABG HCO3 32 H (22-26) mmol/L POC ABG Total CO2 33 H (23-27) mmol/L POC ABG O2 Sat 94 L (95-98) % POC ABG Base Excess 7 H (-2-3) mmol/L POC FiO2 0.36 Sodium (136-145) mmol/L Potassium (3.5-5.1) mmol/L Chloride (98-107) mmol/L Carbon Dioxide (21-32) mmol/L Anion Gap (10-20) mmol/L BUN (7-18) mg/dL Creatinine (0.55-1.02) mg/dL Est Cr Clr Drug Dosing mL/min Estimated GFR (MDRD) Glucose (74-106) mg/dL Lactic Acid (0.4-2.0) mmol/L Calcium (8.5-10.1) mg/dL Corrected Calcium (8.5-10.1) mg/dL Phosphorus (2.6-4.7) mg/dL Magnesium (1.8-2.4) mg/dL Total Bilirubin (0.2-1.0) mg/dL AST (15-37) U/L ALT (14-59) U/L Alkaline Phosphatase (46-116) U/L Creatine Kinase (26-192) U/L POC Troponin I 0.15 H* (0.00-0.08) ng/mL C-Reactive Protein (<=0.9) mg/dL NT-Pro-B Natriuret Pep (<=450) pg/mL Total Protein (6.4-8.2) g/dL Albumin (3.4-5.0) g/dL Globulin Albumin/Globulin Ratio POC Result Comm Called critical res Meds: Medications Generic Name Dose Route Start Last Admin Trade Name Freq PRN Reason Stop Dose Admin Potassium Chloride 20 meq/ 50 mls @ 50 mls/hr 01/17/18 14:31 Premix IV 01/17/18 15:30 ONETIME ONE Sodium Chloride 500 mls @ 30 mls/hr 01/17/18 14:32 Normal Saline IV 01/18/18 07:11 ONETIME ONE Sodium Chloride 10 ml 01/17/18 13:02 Saline Flush FLUSH ASDIRECTED PRN Keep Vein Open Discontinued Medications Generic Name Dose Route Start Last Admin Trade Name Freq PRN Reason Stop Dose Admin Albuterol/Ipratropium 3 ml 01/17/18 13:16 01/17/18 13:20 Duoneb 3.0-0.5 Mg/3 Ml NEB 01/17/18 13:17 3 ml ONETIME ONE Administration Aspirin 324 mg 01/17/18 13:16 01/17/18 13:20 Aspirin PO 01/17/18 13:17 324 mg ONETIME ONE Administration Furosemide 40 mg 01/17/18 14:29 Lasix IV 01/17/18 14:30 ONETIME ONE Promethazine HCl 12.5 mg/ 100.5 mls @ 400 mls/hr 01/17/18 14:31 Sodium Chloride IV 01/17/18 14:46 ONETIME ONE Lidocaine HCl 5 ml 01/17/18 14:36 Xylocaine-Mpf 1% INJECT 01/17/18 14:37 ONETIME ONE Lorazepam 1 mg 01/17/18 14:31 Ativan IVPUSH 01/17/18 14:32 ONETIME ONE Potassium Chloride 40 meq 01/17/18 14:30 Klor-Con M20 PO 01/17/18 14:31 ONETIME ONE Promethazine HCl 12.5 mg 01/17/18 14:36 Phenergan IM 01/17/18 14:37 ONETIME ONE - Radiology Interpretation Free Text/Narrative:: CXR: Significant CHF - see scanned report in EMR Pulmonary Edema Departure - Departure Time of Disposition: 14:40 Disposition: DC/Tfer to Acute Hospital 02 Condition: Fair Clinical Impression: Respiratory distress, Elevated troponin, Hypokalemia Acute congestive heart failure Qualifiers: Heart failure type: unspecified Qualified Code(s): I50.9 - Heart failure, unspecified Pulmonary edema Qualifiers: Chronicity: acute Qualified Code(s): J81.0 - Acute pulmonary edema - Discharge Information Forms: Interfacility Transfer [facility] ED Communication - ED Communication Date/Time Date: 01/17/18 Time Called: 14:26 - Discussed Case With (1) Discussed Case With (1): Admitting Provider (Dr. Langston) - Conversation Summary Admitting Provider Agreed to Patient's Admission: Yes Patient Aware of Amendments fo Care Plan: Yes - Problem List Review Problem List Initiated/Reviewed/Updated: Yes - My Orders Last 24 Hours: My Active Orders 01/17/18 13:02 EKG 12 Lead [EKG Documentation Completion] [RC] STAT Chest 1V Frontal [CR] Stat Sodium Chloride 0.9% [Saline Flush] 10 ml FLUSH ASDIRECTED PRN Peripheral IV Insertion Adult [OM.PC] Routine 01/17/18 13:03 UA W/MICROSCOPIC [URIN] Stat 01/17/18 13:16 RT Aerosol Therapy [RC] ASDIRECTED 01/17/18 14:31 Potassium Chloride [KCL 20 MEQ in Water 50 ML] 20 meq Premix Bag 1 bag IV ONETIME 01/17/18 14:32 Sodium Chloride 0.9% [Normal Saline] 500 ml IV ONETIME - Assessment/Plan Last 24 Hours: My Active Orders 01/17/18 13:02 EKG 12 Lead [EKG Documentation Completion] [RC] STAT Chest 1V Frontal [CR] Stat Sodium Chloride 0.9% [Saline Flush] 10 ml FLUSH ASDIRECTED PRN Peripheral IV Insertion Adult [OM.PC] Routine 01/17/18 13:03 UA W/MICROSCOPIC [URIN] Stat 01/17/18 13:16 RT Aerosol Therapy [RC] ASDIRECTED 01/17/18 14:31 Potassium Chloride [KCL 20 MEQ in Water 50 ML] 20 meq Premix Bag 1 bag IV ONETIME 01/17/18 14:32 Sodium Chloride 0.9% [Normal Saline] 500 ml IV ONETIME Assessment:: Acute congestive heart failure Elevated Troponin Respiratory Distress Pulmonary Edema Plan: Case discussed with Dr. Langston, Hospitalist. Orders received and placed. Report given. All questions answered. Patient will be sent via ALS ground. Patient agrees with transfer.
[2018-01-17] MEDS ORDERED: Sodium Chloride 0.9% 10 ML Syringe FLUSH PRN (13:02)
[2018-01-17] MEDS ORDERED: Albuterol/Ipratropium 3.0-0.5 MG/3 ML Neb Soln NEB ONE (13:16)
[2018-01-17] MEDS ORDERED: Aspirin 81 MG Tab.Chew PO ONE (13:16)
[2018-01-17] MEDS ORDERED: Furosemide 40 MG/4 ML VIAL IV ONE (14:29)
[2018-01-17] MEDS ORDERED: Potassium Chloride 20 MEQ Tab.ER PO ONE (14:30)
[2018-01-17] MEDS ORDERED: Promethazine 12.5 MG in Sodium Chloride 0.9% 100 ML IV ONE (14:31)
[2018-01-17] MEDS ORDERED: Potassium Chloride 20 MEQ in Premix Bag 1 BAG IV ONE (14:31)
[2018-01-17] MEDS ORDERED: LORazepam 2 MG/ML SDV IVPUSH ONE (14:31)
[2018-01-17] MEDS ORDERED: Sodium Chloride 0.9% 500 ML IV ONE (14:32)
[2018-01-17] MEDS ORDERED: Promethazine 25 MG/ML SDV IM ONE (14:36)
[2018-01-17 16:27] VITALS: BP 122/62
== END 2018-01-17 15:20 | disposition short-term general hospital (02) ==
LOC: VM.ED 12:50
DX: I13.0 Hypertensive heart and chronic kidney disease with heart failure and stage 1 through stage 4 chronic kidney disease, or unspecified chronic kidney disease (principal); I50.9 Heart failure, unspecified; N18.9 Chronic kidney disease, unspecified; J81.0 Acute pulmonary edema; E11.22 Type 2 diabetes mellitus with diabetic chronic kidney disease; E87.6 Hypokalemia; R06.03 Acute respiratory distress; R79.89 Other specified abnormal findings of blood chemistry; E78.00 Pure hypercholesterolemia, unspecified; E03.9 Hypothyroidism, unspecified; F17.210 Nicotine dependence, cigarettes, uncomplicated; Z91.040 Latex allergy status; Z88.5 Allergy status to narcotic agent; Z79.82 Long term (current) use of aspirin; Z79.899 Other long term (current) drug therapy
CPT/HCPCS: 36415; 36600; 51702; 71045; 80053; 81001; 82550; 82803; 83605; 83735; 83880; 84100; 84484; 85025; 85379; 85610; 86140; 93005; 94640; 96365; 96372; 96375; 99285; A9270; J1940; J2060; J2550; J3480; J7040; 99284-GF

== ENCOUNTER 2018-01-26 15:58 | Inpatient (IN) | payer MEDICARE, OTHER ==
[2018-01-27] MEDS ORDERED: Nitroglycerin 0.4 MG Tab.SL SL PRN (12:32)
[2018-01-27] MEDS ORDERED: Take Home: Albuterol 6.7 GM Inhaler, 1 Inhaler Pack INH PRN (12:32)
[2018-01-27] MEDS ORDERED: DARBEPOETIN ALFA IN POLYSORBAT SQ SCH (12:45)
[2018-01-27] MEDS ORDERED: Ticagrelor 90 MG Tab PO SCH (13:00)
[2018-01-27] MEDS: Potassium Chloride 10 MEQ Tab.ER PO SCH ×2 (13:55→20:17)
[2018-01-27] MEDS: Furosemide 80 MG Tab PO SCH (15:44)
[2018-01-27] MEDS ORDERED: Mometasone Furoate Powder 220 MCG/Puff 14 Dose Inhaler INH SCH (20:00)
[2018-01-27] MEDS ORDERED: atorvaSTATin 40 MG Tab PO SCH (20:00)
[2018-01-27] MEDS ORDERED: Pramipexole 0.5 MG Tab PO SCH (20:00)
[2018-01-27] MEDS: Ticagrelor 90 MG Tab PO SCH (20:16)
[2018-01-27] MEDS: Acetaminophen/HYDROcodone 325-10 MG Tab PO SCH (20:18)
--- NOTE | 2018-01-27 22:26 | HP ---
CHIEF COMPLAINT: A 77-year-old seen today for deconditioning following an acute stay for acute diastolic heart failure exacerbation and non-ST elevation MN. HISTORY OF PRESENT ILLNESS: The patient was admitted from [place] from 01/17/2018through 01/27/2018 for respiratory failure with hypoxia and hypercarbia due to decompensated heart failure. She had an echo showing an EF of 50% with wall motion abnormalities. She underwent cardiac catheterization on the and had drug-eluting stent to the LAD and diagonal. She has had not had any chest pain since stents were placed. She was found to have [id number] rapid metabolizer, so she has been started on Brilinta. Otherwise, she states she just feels tired. She gets short of breath when she is up and trying to do stuff or move quickly. Her weight was 76.6 kg on discharge today. Her weight on admission was not recorded from what I can see, but was 76 kg earlier in the month. She did quit smoking while she was in [place] about 11 days ago. She did have some tremor-like activity, was evaluated with MRI and EEG. Neurology did not feel they were seizures, maybe thought they were just some muscle twitching due to stress. She had pleural effusions, recommended chest x-ray for followup as an outpatient. Her Aranesp was not needed as her hemoglobin was around 12. Her kidney function was quite stable with a creatinine of 1.26 on discharge. Blood sugars were high up to 233 on lab work. She has a history of diabetes but is on no medications currently. ALLERGIES: Latex, codeine, seasonal, tapes, Valium that causes stomach pain. MEDICATIONS: Medication list includes Lasix 80 mg twice daily, aspirin 81 mg daily, hydrocodone 10 mg three times a day. Imdur 60 mg daily, nitroglycerin 0.4 mg as needed for chest pain, Flovent 2 puffs twice a day, Zoloft 25 mg daily, Lipitor 40 mg at bedtime, Mirapex 1.5 mg at bedtime, Zaroxolyn 2.5 mg on Tuesday, Tuesday, Tuesday, melatonin 3 mg at bedtime, potassium 20 mEq three times a day, levothyroxine 125 mcg daily, milk of magnesia, Ativan twice daily as needed for anxiety, albuterol inhaler. PAST MEDICAL HISTORY: Diabetes, diet controlled; chronic kidney disease stage IV in the past, but currently off dialysis; she had NSAID and RICHA inhibitor use in the past; vitamin D deficiency; peripheral edema; hypothyroidism; back pain with sciatica; generalized osteoarthritis; previous smoking; chronic diastolic heart failure; essential hypertension, actually it did cancel; she has had trivial mitral regurgitation; major depressive disorder, iron deficiency anemia, history of gastritis and chronic dyspepsia; spinal stenosis; peripheral vascular disease; carotid artery disease but no previous report of coronary disease; probable emphysema; fibromyalgia. Surgically, she has had a hysterectomy. She has had her tonsils taken out. She has had a fistula in her arm for dialysis. SOCIAL HISTORY: She is . She recently lost her son. He was on dialysis. She is retired. She denied any alcohol use. She quit smoking within the last couple weeks. FAMILY HISTORY: Father is . He did have some drug and alcohol problems. REVIEW OF SYSTEMS: General: There have been no major weight changes. She has been fatigued. HEENT: No sore throat. Cardiac: No chest pain, but short of breath with exertion. Respiratory: No new cough. No wheezing. GI: No nausea, vomiting, diarrhea. Musculoskeletal: She has had no new aches or pains. She does have some chronic back and joint pain. Psychiatric: She has been depressed since losing her son. This has not really worsened. Otherwise, all systems reviewed and negative unless otherwise stated. PHYSICAL EXAMINATION: Vital Signs: On [facility] admission, weight is 76.8 kg, temperature 98.2, pulse 76, blood pressure 111/53, respiratory rate 18, O2 at 95% on room air. General: She is in no acute distress. Heart: Regular rate and rhythm without murmur. Respiratory: Lungs sounds are clear to auscultation bilaterally without crackles or wheezes. Abdomen: Positive bowel sounds. It is soft. It is nontender. Extremities: Warm and dry. She has some lymphedema changes over both ankles, but it is nonpitting. No redness, no warmth, no drainage. Mental Status: She is alert and orientated x3. Psych: She appears mildly depressed. ASSESSMENT AND PLAN: 1. Acute on chronic diastolic heart failure exacerbation with ejection fraction of 50%. 2. Coronary artery disease with recent [id number] myocardial infarction and stent placement. 3. Diet-controlled diabetes. 4. Underlying depression. 5. Recent tobacco use, currently quit. 6. Essential hypertension. 7. Fatigue due to underlying comorbidities and acute illness. 8. Chronic iron deficiency anemia. 9. Chronic back pain with spinal stenosis, on hydrocodone. 10.Anxiety. She does have benzodiazepines also ordered. 11.Chronic kidney disease stage IV. Actually creatinine better at 1.2. We will plan a recheck Tuesday. PLAN: At this point, the patient will be admitted to swing bed cares. We have ordered all medications, but I held off on metolazone at this point. As it is already Tuesday, we will reassess her lab work Tuesday and weight and fluid status and see if she needs another dose. We will have her on Brilinta as recommended by Cardiology. We will have her up and working with therapies. We will put on support stockings for DVT prophylaxis and have her up and moving. She is a code level 1. Dr. Landon to resume care on Tuesday. She did deny any nicotine replacement therapy at this point. MKA: 01/27/2018 13:48:14 MODL: 01/27/2018 20:25:14 /[id number]
[2018-01-28] MEDS: Albuterol 0.083% 2.5 MG/3 ML Neb Soln NEB PRN ×2 (03:22→13:30)
[2018-01-28] MEDS ORDERED: Levothyroxine 125 MCG Tab PO SCH (07:00)
[2018-01-28] MEDS ORDERED: Cholecalciferol (Vitamin D3) 1,000 Unit Tab PO SCH (08:00)
[2018-01-28] MEDS ORDERED: Isosorbide Mononitrate 60 MG Tab.ER PO SCH (08:00)
[2018-01-28] MEDS ORDERED: Aspirin 81 MG Tab.EC PO SCH (08:00)
[2018-01-28] MEDS ORDERED: Sertraline 25 MG Tab PO SCH (08:00)
[2018-01-28] MEDS: Acetaminophen/HYDROcodone 325-10 MG Tab PO SCH ×2 (08:24→12:22)
[2018-01-28] MEDS: Potassium Chloride 10 MEQ Tab.ER PO SCH ×2 (08:24→12:22)
[2018-01-28] MEDS: Ticagrelor 90 MG Tab PO SCH (08:24)
[2018-01-28] MEDS: Furosemide 80 MG Tab PO SCH ×2 (08:25→15:47)
[2018-01-28 14:56] VITALS: BP 133/70
[2018-01-28] MEDS ORDERED: Furosemide 20 MG/2 ML VIAL IV ONE (15:17)
--- NOTE | 2018-01-28 16:03 | PCM.DCSUM1 ---
Discharge Summary - Hospital Course Free Text/Narrative:: Progress note and transfer summary for Regi Verduzco Patient had acute shortness of breath after lunch today. She described having a pounding in her chest and some pressure and then she was short of breath. She states that she has shortness of breath at home walking in the house. Her shortness of breath now however is worse. She was transferred from [place] on January 17 to [facility] for heart failure and respiratory failure. During that hospitalization she received 2 stents. She did not have any chest pain or pressure Ryer to her stent placement just shortness of breath. She might of had some fullness but patient is a very vague historian gave the patient may have had some fullness but mostly she feels like she is short winded. At time of first assessment approximate 1:30: blood pressure was about 86 systolic respiratory rate was in the 20s, patient was afebrile heart rate was 63 O2 sat was 95% on 2 L of O2 Patient's lung examination revealed diffuse wheezes and some increased expiratory phase Heart examination: S1-S2 normal without rubs, murmurs, gallops in sinus rhythm Ext showed no edema Patient was given a DuoNeb treatment EKG showed some more prominent T-wave inversions in the lateral kailey Troponin was mildly elevated at 0.08 with up to 0.05 being normal D-dimer was elevated at 3. up to being normal Creatinine went from 1.1-1.6 BNP was over 11,000 Chest x-ray showed small right pleural effusion and possible heart failure but it was an AP film and no comparison is possible as previous films were [place] At 3:30: Patient was reexamined she was still dyspneic but a little bit more comfortable, blood pressure was up to 130/70 the patient was given Lasix 20 mg Impression the patient has become acutely short of breath with some EKG changes. It's unclear whether this is purely heart failure or if she had an episode of ischemia which lowered her blood pressure and cause her to become more dyspneic Plan patient will be sent by monitor ambulance back to [place] for further evaluation for heart failure, elevated troponin, abnormal EKG, and elevated d- dimer Dr. GUADALUPE excepts - Discharge Data Discharge Date: 01/28/18 Discharge Disposition: DC/Tfer to Acute Hospital 02 Condition: Fair - Discharge Diagnosis/Problem(s) (1) Acute congestive heart failure SNOMED Code(s): 00962865 ICD Code: I50.9 - HEART FAILURE, UNSPECIFIED Status: Acute Current Visit : No (2) Respiratory distress SNOMED Code(s): 670297538 ICD Code: R06.03 - ACUTE RESPIRATORY DISTRESS Status: Acute Current Visit : No - Patient Summary/Data Consults: Consultations 01/27/18 09:54 OT Evaluation and Treatment [CONS] Routine PT Evaluation and Treatment [CONS] Routine - Discharge Plan Home Medications: Home Meds RX: Albuterol Sulfate [Albuterol Sulfate HFA] 2 puff INH Q4H PRN 03/19/14 [ History] RX: Cholecalciferol (Vitamin D3) [Vitamin D3] 2,000 unit PO DAILY 03/19/14 [ History] RX: Isosorbide Mononitrate [Imdur] 60 mg PO DAILY 03/19/14 [History] RX: Nitroglycerin [Nitrostat] 0.4 mg SL ASDIRECTED PRN 03/19/14 [History] RX: Pramipexole Di-HCl [Mirapex] 2 tab PO BEDTIME 03/19/14 [History] RX: Metolazone 1 tab PO ASDIRECTED 08/10/17 [History] RX: Fluticasone Propionate [Flovent HFA] 2 puff INH BID 12/18/17 [History] RX: Furosemide 1 tab PO BIDDIURETIC 12/18/17 [History] RX: Hydrocodone/Acetaminophen [Hydrocodon-Acetaminophn 10-325] 1 tab PO TID [History] RX: Levothyroxine Sodium [Synthroid] 1 tab PO DAILY 12/18/17 [History] RX: Sertraline [Zoloft] 1 tab PO DAILY 12/18/17 [History] RX: Potassium Chloride [Klor-Con 10] 20 meq PO TID #90 tab.er 12/19/17 [Rx] RX: Aspirin 81 mg PO DAILY 01/27/18 [History] Ticagrelor [Brilinta] 90 mg PO TID 01/27/18 [History] atorvaSTATin [Lipitor] 40 mg PO BEDTIME 01/27/18 [History] Forms: Interfacility Transfer EMTALA - Patient Data Vitals - Most Recent: Last Vital Signs Temp 98.5 F 01/28/18 06:00 Pulse 80 01/28/18 14:55 Resp 22 H 01/28/18 13:39 BP 133/70 01/28/18 14:55 Pulse Ox 97 01/28/18 14:55 Weight - Most Recent: 171 lb 6.4 oz I&O - Last 24 hours: Intake & Output 01/28/18 01/28/18 01/28/18 06:59 14:59 22:59 Intake Total 500 180 Output Total 1200 Balance -700 180 Lab Results - Last 24 hrs: Laboratory Results - last 24 hr 01/27/18 01/27/18 01/28/18 Range/Units 16:32 22:35 06:36 D-Dimer, Quantitative (<=0.58) mg/LFEU Sodium (136-145) mmol/L Potassium (3.5-5.1) mmol/L Chloride (98-107) mmol/L Carbon Dioxide (21-32) mmol/L Anion Gap (10-20) mmol/L BUN (7-18) mg/dL Creatinine (0.55-1.02) mg/dL Est Cr Clr Drug Dosing mL/min Estimated GFR (MDRD) Glucose (74-106) mg/dL POC Glucose 101 97 105 (74-106) mg/dL Calcium (8.5-10.1) mg/dL Troponin I (<=0.056) ng/mL NT-Pro-B Natriuret Pep (<=450) pg/mL 01/28/18 01/28/18 01/28/18 Range/Units 11:27 14:04 14:04 D-Dimer, Quantitative 3.78 H (<=0.58) mg/LFEU Sodium 139 (136-145) mmol/L Potassium 3.9 (3.5-5.1) mmol/L Chloride 99 (98-107) mmol/L Carbon Dioxide 31 (21-32) mmol/L Anion Gap 12.9 (10-20) mmol/L BUN 39 H (7-18) mg/dL Creatinine 1.6 H (0.55-1.02) mg/dL Est Cr Clr Drug Dosing 21.49 mL/min Estimated GFR (MDRD) 31 Glucose 118 H (74-106) mg/dL POC Glucose 155 H (74-106) mg/dL Calcium 8.5 (8.5-10.1) mg/dL Troponin I 0.089 H* (<=0.056) ng/mL NT-Pro-B Natriuret Pep 12505 H (<=450) pg/mL Med Orders - Current: Current Medications Hydrocodone Bitart/Acetaminophen ([place] 325-10 Mg) 1 tab PO TID [facility] Last Admin: 01/28/18 12:22 Dose: 1 tab Albuterol (Proventil Neb Soln) 2.5 mg NEB Q4HRRT PRN PRN Reason: sob Last Admin: 01/28/18 13:30 Dose: 2.5 mg Aspirin (Halfprin) 81 mg PO DAILY [facility] Last Admin: 01/28/18 08:25 Dose: 81 mg Atorvastatin Calcium (Lipitor) 40 mg PO BEDTIME [facility] Last Admin: 01/27/18 20:16 Dose: 40 mg Cholecalciferol (Vitamin D3) 2,000 units PO DAILY [facility] Last Admin: 01/28/18 08:24 Dose: 2,000 units Furosemide (Lasix) 80 mg PO BIDDIURETIC [facility] Last Admin: 01/28/18 15:47 Dose: Not Given Isosorbide Mononitrate (Imdur) 60 mg PO DAILY [facility] Last Admin: 01/28/18 08:24 Dose: 60 mg Levothyroxine Sodium (Levothyroxine) 125 mcg PO DAILY@0700 [facility] Last Admin: 01/28/18 06:34 Dose: 125 mcg Mometasone Furoate (Asmanex 220 Mcg) 1 puff INH BEDTIME [facility] Last Admin: 01/27/18 20:18 Dose: 1 puff Nitroglycerin (Nitrostat) 0.4 mg SL ASDIRECTED PRN PRN Reason: Chest Pain Potassium Chloride (Klor-Con 10) 20 meq PO TID [facility] Last Admin: 01/28/18 12:22 Dose: 20 meq Pramipexole Dihydrochloride (Mirapex) 1.5 mg PO BEDTIME [facility] Last Admin: 01/27/18 20:22 Dose: 1.5 mg Sertraline HCl (Zoloft) 25 mg PO DAILY [facility] Last Admin: 01/28/18 08:24 Dose: 25 mg Ticagrelor (Brilinta) 90 mg PO BID [facility] Last Admin: 01/28/18 08:24 Dose: 90 mg Discontinued Medications Furosemide (Lasix) 20 mg IV ONETIME ONE Stop: 01/28/18 15:18 Last Admin: 01/28/18 15:33 Dose: 20 mg Ticagrelor (Brilinta) 90 mg PO TID [facility] Last Admin: 01/27/18 13:58 Dose: Not Given
--- OUTSIDE RECORDS SUMMARY | 2018-01-30 07:35 | XMSREPORT | Summary of Care ---
:1940 Author Organization [facility] Address [address] [place] [address] Phone Care Team Providers Name Role Phone Nora Landon MD Primary Care Provider Nora Landon MD Attributed Provider Reason for Visit Auth/Cert Status Reason Specialty Diagnoses / Procedures Referred By Contact Referred To Contact Encounter Details Date Type Department Care Team Description 01/17/2018 - Hospital Encounter [facility] Provider, Generic Hosp Procedure NSTEMI (non-ST 01/27/2018 CENTER [facility] Kasey Junior, [address] [address] elevated myocardial [address] Aurelio Flanagan, DO [address] [place] [id number] infarction) [place] [address] Sushant Mena MD [address] [place] [address] [phone] Tolu Akins MD [address] [place] [id number] [phone] Allergies Active Allergy Reactions Severity Noted Date Comments Latex Other (Specify in High 02/18/2012 OPEN SORES Comments) Codeine Nausea and Vomiting, 02/18/2012 Diarrhea Seasonal Unknown/Not Verified 03/27/2013 Adhesives Other (Specify in 02/18/2012 Dermatological problems, Comments) e.g., rash, hives Diazepam Stomach Pain 06/10/2015 as of this encounter Medications Prescription Sig. Disp. Refills Start End Status Date Date darbepoetin (ARANESP) Inject 0-150 mcg Active 25 mcg/mL subcutaneously SOLNIndications: End every 2 weeks Stage Renal Disease Indications: Final Stages of Kidney Disease *Dose adjusted by Dialysis PharmD--to be given at dialysis. Call PharmD at [phone] for questions. *Do not change this entry* aspirin 81 mg chewable Take 1 tablet (81 30 tablet 0 01/28/20 Active tabletIndications: mg) by mouth 1 18 NSTEMI (non-ST elevated time per day myocardial infarction) HYDROcodone-acetaminoph Take 1 tablet by 90 tablet 0 01/28/20 Active en (NORCO) 10-325 mg mouth 3 times a 18 tabletIndications: day Earliest Fill Fibromyalgia syndrome Date: 01/27/18 isosorbide mononitrate Take 1 tablet (60 30 tablet 0 01/28/20 Active (IMDUR) 60 mg SR tablet mg) by mouth 1 18 (24 hr)Indications: time per day NSTEMI (non-ST elevated myocardial infarction) nitroglycerin Dissolve 1 tablet 25 tablet 0 01/28/20 Active (NITROSTAT) 0.4 mg (0.4 mg) under 18 sublingual the tongue Every tabletIndications: 5 minutes as NSTEMI (non-ST elevated needed for chest myocardial infarction) pain May repeat every 5 minutes for a total of 3 doses. fluticasone (FLOVENT Inhale 2 puffs 1 Inhaler 0 01/28/20 Active HFA) 44 mcg/puff orally 2 times a 18 inhalerIndications: day Shake well Cough before using. Rinse mouth after use. sertraline (ZOLOFT) 25 Take 1 tablet (25 30 tablet 0 01/28/20 Active mg tabletIndications: mg) by mouth 1 18 Fibromyalgia syndrome time per day atorvaSTATin (LIPITOR) Take 1 tablet (40 30 tablet 0 01/28/20 Active 40 mg mg) by mouth 18 tabletIndications: every night at NSTEMI (non-ST elevated bedtime myocardial infarction) pramipexole (MIRAPEX) Take 1 tablet 30 tablet 0 01/28/20// Active 1.5 mg (1.5 mg) by mouth 2018 tabletIndications: every night at Restless legs syndrome bedtime furosemide (LASIX) 80 Take 1 tablet (80 60 tablet 0 01/28/20 Active mg tabletIndications: mg) by mouth two 18 Chronic diastolic times a day (in congestive heart the morning and failure mid-afternoon). metOLazone (ZAROXOLYN) Take 1 tablet 15 tablet 0 01/28/20 Active 2.5 mg (2.5 mg) by mouth 18 tabletIndications: on Tuesday, Chronic diastolic Tuesday, and congestive heart Tuesday failure melatonin 3 mg Take 1 tablet (3 30 tablet 0 01/28/20 Active tabletIndications: mg) by mouth 18 Preventative health every night at care bedtime potassium chloride Take 2 tablets 180 tablet 0 01/28/20 Active (K-TAB) 10 mEq CR (20 mEq) by mouth 18 tabletIndications: 3 times a day Preventative health care levothyroxine 125 mcg Take 1 tablet 30 tablet 0 01/28/20 Active tabletIndications: (125 mcg) by 18 Hypothyroidism due to mouth 1 time a acquired atrophy of day in the thyroid morning vitamin D3, Take 1 capsule 30 capsule 0 01/28/20 Active cholecalciferol, 2000 (2,000 Units) by 18 unit mouth 1 time per capsuleIndications: day Preventative health care ticagrelor (BRILINTA) Take 1 tablet (90 60 tablet 11 01/28/20 Active 90 mg mg) by mouth 2 18 tabletIndications: times a day NSTEMI (non-ST elevated myocardial infarction) magnesium hydroxide Take 30 mL by 473 mL 0 01/28/20 Active (MILK OF MAGNESIA) 400 mouth 1 time a 18 mg/5 mL oral day as needed for suspensionIndications: constipation Preventative health care LORazepam (ATIVAN) 0.5 Take 1 tablet 60 tablet 0 01/28/20 Active mg tabletIndications: (0.5 mg) by mouth 18 Anxiety 2 times a day as needed for anxiety albuterol HFA Inhale 2 puffs 1 Inhaler 0 01/28/20 Active (PROVENTIL,PROAIR,KAROLINE orally Every 4 18 AALIYAH) 108 (90 BASE) hours as needed MCG/ACT for shortness of inhalerIndications: breath Shake well Panlobular emphysema before using. vitamin D3, Take 2,000 Units 01/27/ Suspended cholecalciferol, 2000 by mouth 1 time 2018 unit capsule per day. aspirin 81 mg enteric Take 81 mg by 01/27/ Suspended coated tablet mouth 1 time per 2018 day. levothyroxine 125 mcg TAKE 1 TABLET 90 tablet 3 02/17/2001/27/ Suspended tabletIndications: DAILY 2017 Hypothyroidism due to acquired atrophy of thyroid furosemide (LASIX) 80 Take 1 tablet (80 180 tablet 3 03/18/2001/27/ Suspended mg tabletIndications: mg) by mouth 2 2017 CKD (chronic kidney times a day disease) stage 3, GFR 30-59 ml/min, Chronic diastolic congestive heart failure spironolactone TAKE 1 TABLET 90 tablet 3 04/18/2001/27/ Suspended (ALDACTONE) 25 mg DAILY 2017 tabletIndications: CKD (chronic kidney disease) stage 3, GFR 30-59 ml/min, Chronic diastolic congestive heart failure fluticasone (FLONASE) [place] 1 spray 1 Bottle 3 04/26/2001/27/ Suspended 50 mcg/spray nasal into each nostril 2017 sprayIndications: 2 times a day Seasonal allergic rhinitis due to pollen isosorbide mononitrate TAKE 1 TABLET 90 tablet 3 08/31/2001/27/ Suspended (IMDUR) 60 mg SR tablet DAILY 2017 (24 hr)Indications: Chronic diastolic congestive heart failure albuterol HFA Inhale 2 puffs 1 Inhaler 5 11/09/1901/27/ Suspended (PROVENTIL,PROAIR,KAROLINE orally every to 2017 AALIYAH) 108 (90 BASE) 6 hours as needed MCG/ACT for shortness of inhalerIndications: breath Shake well Panlobular emphysema before using. atorvaSTATin (LIPITOR) TAKE 1 TABLET 90 tablet 3 11/09/1901/27/ Suspended 10 mg DAILY 2017 tabletIndications: Pure hypercholesterolemia fluticasone (FLOVENT Inhale 2 puffs 1 Inhaler 3 11/09/1901/27/ Suspended HFA) 44 mcg/puff orally 2 times a 2017 inhalerIndications: day Shake well Cough before using. Rinse mouth after use. pramipexole (MIRAPEX) Take 2 tablets 180 tablet 3 11/09/1901/27/ Suspended 0.75 mg (1.5 mg) by mouth 2017 tabletIndications: every night at Restless legs syndrome bedtime nitroglycerin Dissolve 1 tablet 30 tablet 3 11/09/1901/27/ Suspended (NITROSTAT) 0.4 mg (0.4 mg) under 2017 sublingual the tongue Every tabletIndications: 5 minutes as Benign essential needed for chest hypertension pain sertraline (ZOLOFT) 25 Take 1 tablet (25 30 tablet 4 12/08/1901/27/ Suspended mg tabletIndications: mg) by mouth 10 13 2017 Severe episode of time per day recurrent major depressive disorder, with psychotic features potassium chloride Take 2 tablets by 12/20/1901/27/ Suspended (KLOR-CON M10) 10 MEQ mouth 3 times a 2017 CR tablet day promethazine Take 1 tablet (25 56 tablet 3 12/27/1901/27/ Suspended (PHENERGAN) 25 mg mg) by mouth 2017 tabletIndications: every 6 hours as Nausea needed for nausea metOLazone (ZAROXOLYN) Take 1 tablet 15 tablet 3 12/27/1901/27/ Suspended 2.5 mg (2.5 mg) by mouth 2017 tabletIndications: 1 time a week Chronic diastolic Take on Tue. congestive heart failure HYDROcodone-acetaminoph Take 1 tablet by 84 tablet 0 01/17/2001/27/ Suspended en (NORCO) 10-325 mg mouth 3 times a 2017 tabletIndications: Pain day medication agreement signed, Fibromyalgia syndrome albuterol HFA Inhale 2 puffs 1 Inhaler 0 01/28/2001/27/ Discontinued (PROVENTIL,PROAIR,KAROLINE orally every to 2017 AALIYAH) 108 (90 BASE) 6 hours as needed MCG/ACT for shortness of inhalerIndications: breath Shake well Panlobular emphysema before using. 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 Started zoloft. Disordered thoughts Gait instability 12/07/2017 Overview: 12/07/17 noted, ? Emotional duress vs CVA Thumb laceration, right, sequela 12/07/2017 Infection of arteriovenous fistula 08/24/2017 Cellulitis and abscess of upper arm and forearm 08/24/2017 Arthralgia of hip 08/24/2017 Spinal stenosis of lumbar region without neurogenic claudication 08/24/2017 Back pain 08/24/2017 Trochanteric bursitis 08/24/2017 Gastroesophageal reflux disease without esophagitis 07/28/2017 Overview: 1991 had gastritis, records not available, no EGD or UGI.was on prilosec until Oct 2016 Nausea 07/28/2017 Polyneuropathy associated with underlying disease 06/23/2017 Overview: 06/23/17 both great toes lack monofilament sensation. Varicose veins of leg with complications 05/17/2017 Peripheral artery disease 05/17/2017 Overview: 06/07/2017 REAGAN testings [id number] decreased right REAGAN of .54 and .50. [id number] decreased left REAGAN of .77 and .82. left subclavian artery stenosis occlusion. Vascular consult set up. Foot pain, right 05/17/2017 Iron deficiency anemia 04/27/2017 Seasonal allergic rhinitis due to pollen 04/26/2017 ESRD (end stage renal disease) on dialysis 04/25/2017 Pain medication agreement signed 12/20/2016 Overview: A pain management agreement is on file for this patient. Before prescribing any opioids for this patient, [facility] [phone] . Date Contract Signed: 12/20/2016 Provider managing pain: Dr. Landon Pharmacy: [facility] Chronic, continuous use of opioids 12/20/2016 Dyspepsia 11/25/2015 Disorder of toe of right foot 11/11/2015 Other back symptoms 07/29/2015 Arthropathy of lumbar facet joint 06/20/2015 Hypokalemia 06/12/2015 Arthritis of knee, left 10/09/2014 Arthritis of knee, right 10/09/2014 Arthritis of lumbar spine 07/03/2014 Peripheral edema 05/16/2014 Overview: 05/16/14 multifactorial; reduction of lasix, d/c spironolactone and vasotec due to CKD 3-4, addition of neurontin for back pain. Plan inc lasix Lumbar radiculopathy 03/19/2014 CKD (chronic kidney disease) stage 4, GFR 15-29 ml/min 03/12/2014 Overview: Apr 2013 had .Cr 1.4 ,GFR 39. On February, Cr 2.1, GFR 24, stopped NSAID and vasotec. Chronic diastolic congestive heart failure 01/11/2014 Overview: 01/21/2014 onset ECHO, 12/01/2015 ECHO EF 65%,mild diast dysfn, mild MR, mild TR.PAP 25., same. Leukocytosis 08/10/2013 Sinus bradycardia 04/13/2013 Overview: 2011 noted in 40-50's pulse asymptomatic. 2012 in the 30's.Pt weaned from atenolol. Heart palpitations 04/13/2013 Presbyopia - Both 03/27/2013 Subclavian artery stenosis, left 01/31/2013 Overview: 01/31/2013 noted, also noted on REAGAN testing on 06/07/2017 Pseudophakos - Right 01/18/2013 Carotid artery disease 01/12/2013 Dermatochalasis - Both 12/21/2012 Vitamin D deficiency 10/16/2009 Insomnia due to medical condition 10/10/2009 High risk medication use 12/26/2008 Type 2 diabetes mellitus without complication, without long-term current 11/15 use of insulin Overview: Met criteria on 11/15/2003 FBG 149. Diet managed. Hypothyroidism due to acquired atrophy of thyroid Benign essential hypertension Pure hypercholesterolemia Restless legs syndrome Overview: mirapex dose reduced Apr 2013 Hyperkalemia Overview: On spironolactone Sciatica of right side Overview: Uses hydrocodone. MRI on 12/14/13 had mild disc bulges and DJD. Emotional stress Overview: Son had poor health in 2013 dialysis. in 2007. Tobacco use Overview: Declines methord to stop 10/13/15. Fibromyalgia syndrome Overview: Has been on chronic narcotics, on pain agreement. Has had PT for upper back pain .Has had M[facility] at [facility]. Declined antidepressant on 04/26/17. Declined referral for myofascial pain release on 04/26/17. Panlobular emphysema Overview: 2013 menitoned on CXR, uses prn albuterol as of this encounter Resolved Problems Problem Noted Date Resolved Date Arthralgia 06/10/2015 06/27/2016 Depression 07/17/2014 05/24/2016 Overview: 07/17/14 PHQ ( is 14, pt declined meds. Acute kidney injury 04/12/2014 06/27/2016 Overview: Apr 2013 had .Cr 1.4 ,GFR 39. On February, Cr 2.1, GFR 24, stopped NSAID and vasotec.Improved by March Cr 1.39, GFR 37. Myalgia 05/14/2013 06/27/2016 Cataract, senile - Both 12/21/2012 03/26/2015 Disturbance of skin sensation 05/14/2011 06/27/2016 Herpes zoster 12/21/2008 06/27/2016 as of this encounter Immunizations Name Dates Previously Given Next Due FLU VACCINE HIGH DOSE 65YR+ 06/23/2017, 09/23/2016, 08/11/2015, 07/17/2014, 08/09/2013 HEP B, dialysis 07/04/2017, 06/01/2017 Pneumococcal Conj PCV13 06/10/2015 Pneumococcal Polysaccharide PPSV23 08/01/2017, 09/26/2008, 07/15/2008 TDAP 02/11/2011 Tuberculin PPD 04/25/2017 as of this encounter Social History Tobacco Use Types Packs/Day Years Used Date Current Every Day Smoker Cigarettes 1 50 Smokeless Tobacco: Never Used Comments: Just cutting back to 1/2 ppd Alcohol Use Drinks/Week oz/Week Comments No Sex Assigned at Date Recorded Not on file as of this encounter Last Filed Vital Signs Vital Sign Reading Time Taken Blood Pressure 111/60 01/27/2018 7:35 AM CDT Pulse 70 01/27/2018 7:35 AM CDT Temperature 36.7 C (98 F) 01/27/2018 7:35 AM CDT Respiratory Rate 16 01/27/2018 7:35 AM CDT Oxygen Saturation 96% 01/27/2018 7:35 AM CDT Inhaled Oxygen Concentration - - Weight 76.6 kg (168 lb 12.8 oz) 01/27/2018 4:17 AM CDT Height 152.4 cm (5') 01/17/2018 5:00 PM CDT Body Mass Index 32.97 01/27/2018 4:17 AM CDT in this encounter Functional Status Functional Status Response Date of Assessment Is the person deaf or does he/she have serious difficulty No 01/17/2018 hearing? Is this person blind or does he/she have difficulty No 01/17/2018 seeing even when wearing glasses? Do you have difficulty with walking, balance, climbing Yes 01/23/2018 stairs, or had a fall in the last 3 months? Does the patient have difficulty dressing or bathing? Yes 01/17/2018 Because of a physical, mental, or emotional condition; No 01/17/2018 does this person have difficulty doing errands alone such as visiting a doctor's office or shopping? Cognitive Status Response Date of Assessment Because of a physical, mental, or emotional condition; No 01/17/2018 does this person have serious difficulty concentrating, remembering, or making decisions? as of this encounter Discharge Summaries Sushant Mena MD - 01/27/2018 8:45 AM CDTFormatting of this note may be different from the original. Discharge Summary Patient ID: Regi Guzman is a 77yr female. Attending Physician: Sushant Mena MD Discharging Provider Specialty: Adult Hospitalist Admit Date: 01/17/2018 Discharge Date: 01/27/2018 Primary Care Physician: Nora Landon MD Code Status: Full Code Primary Discharge Diagnoses <principal problem not specified> Active Problems: Seizure NSTEMI (non-ST elevated myocardial infarction) Resolved Problems: * No resolved hospital problems. * BITA on CKD 3 improved Secondary Discharge Diagnoses Patient Active Problem List Diagnosis Hypothyroidism due to acquired atrophy of thyroid Benign essential hypertension Pure hypercholesterolemia Type 2 diabetes mellitus without complication, without long-term current use of insulin High risk medication use Insomnia due to medical condition Vitamin D deficiency Dermatochalasis - Both Carotid artery disease Pseudophakos - Right Subclavian artery stenosis, left Presbyopia - Both Sinus bradycardia Heart palpitations Restless legs syndrome Hyperkalemia CKD (chronic kidney disease) stage 4, GFR 15-29 ml/min Leukocytosis Sciatica of right side Chronic diastolic congestive heart failure Peripheral edema Emotional stress Arthritis of lumbar spine Arthritis of knee, left Arthritis of knee, right Hypokalemia Tobacco use Disorder of toe of right foot Dyspepsia Pain medication agreement signed Chronic, continuous use of opioids ESRD (end stage renal disease) on dialysis Seasonal allergic rhinitis due to pollen Fibromyalgia syndrome Panlobular emphysema Iron deficiency anemia Varicose veins of leg with complications Peripheral artery disease Foot pain, right Polyneuropathy associated with underlying disease Gastroesophageal reflux disease without esophagitis Nausea Infection of arteriovenous fistula Cellulitis and abscess of upper arm and forearm Arthropathy of lumbar facet joint Lumbar radiculopathy Arthralgia of hip Other back symptoms Spinal stenosis of lumbar region without neurogenic claudication Back pain Trochanteric bursitis Severe episode of recurrent major depressive disorder, with psychotic features Gait instability Thumb laceration, right, sequela Seizure NSTEMI (non-ST elevated myocardial infarction) Hospital Course Regi Guzman is a 77yr old female with the above medical history admitted 01/17/2018 with acute respiratory failure with hypoxia and hypercarbia due to acute decompensated diastolic CHF. Cardiology was consulted and recommended cardiac catheterization, and initially patient deferred the test due to concerns about contrast. Patient became more volume overloaded and required aggressive diuresis, which was successful in improving her volume overload. Cardiac catheterization was performed 01/23/2018, and patient received MELIZA to LAD and diag. [id number] activity was checked and came back as rapidmetabolizer, and Cardiology recommended brilinta only for antiplatelet therapy for MELIZA (should NOT take plavix). Neurology had been consulted during hospital stay for questionable seizure activity, aspatient had at times right arm twitching but without any post ictal state. MRI brain and EEG were performed which were negative for any abnormality to suggest seizure, and Neurology did not recommend any antiseizure medication, and that it is most likely intermittent muscle twitching related to stress. On day of discharge patient is feeling much better, less short of breath, states she feels able tobreathe easier, still with some residual swelling that is also improved. Weight 76.6 kg, from 78kg yesterday. All questions were answered and patient was discharged in stable condition. Discharge recommendations: -See PCP 1 week -Patient needs to establish care in Cardiology clinic -Consider sleep medicine evaluation once patient has reached dry weight (dry weight unclear, as she is still diuresing and swelling continues to improve) -Need follow up CXR as outpatient to ensure pleural effusions improve, which are likely due to volume overload from heart failure -Need to monitor BMP to ensure electrolytes are stable and corrected -Nephrology to follow as outpatient Procedures Performed and Findings * No surgery found * Discharge Exam Vital Signs: Temp: 98 F (36.7 C) | BP: 111/60 | Pulse: 70 | Resp: 16 | Pain Ratin (out of 10) | Weight: 76.6 kg (168 lb 12.8 oz) | O2 Device: NC - no humidity O2 Flow Rate (L/min): 2 l/min | SpO2: 96 % Intake and Output: 01/26 0700 - 01/27 0659 In: 1130 [Oral:1130] Out: 600 [Urine:600] Physical Exam Constitutional: No distress. HENT: Head: Normocephalic and atraumatic. Cardiovascular: Normal rate and intact distal pulses. Pulmonary/Chest: Effort normal. No respiratory distress. She has no wheezes. Abdominal: Soft. She exhibits no distension. Neurological: She is alert. Skin: Skin is warm and dry. She is not diaphoretic. Psychiatric: She has a normal mood and affect. Her behavior is normal. Vitals reviewed. Consults NUTRITION REFERRAL CASE MANAGEMENT CONSULT CARDIOLOGY CONSULT NEUROLOGY CONSULT NEPHROLOGY CONSULT CASE MANAGEMENT CONSULT Discharge Disposition ADULT Discharge Planning: Home (1, 2) Discharge Medications Medication List START taking these medications aspirin 81 mg chewable tablet Take 1 tablet (81 mg) by mouth 1 time per day Replaces: aspirin 81 mg enteric coated tablet LORazepam 0.5 mg tablet Commonly known as: ATIVAN Take 1 tablet (0.5 mg) by mouth 2 times a day as needed for anxiety magnesium hydroxide 400 mg/5 mL oral suspension Commonly known as: MILK OF MAGNESIA Take 30 mL by mouth 1 time a day as needed for constipation melatonin 3 mg tablet Take 1 tablet (3 mg) by mouth every night at bedtime potassium chloride 10 mEq CR tablet Commonly known as: K-TAB Take 2 tablets (20 mEq) by mouth 3 times a day ticagrelor 90 mg tablet Commonly known as: BRILINTA Take 1 tablet (90 mg) by mouth 2 times a day CHANGE how you take these medications atorvaSTATin 40 mg tablet Commonly known as: LIPITOR Take 1 tablet (40 mg) by mouth every night at bedtime What changed: - medication strength - how much to take - how to take this - when to take this - additional instructions furosemide 80 mg tablet Commonly known as: LASIX Take 1 tablet (80 mg) by mouth two times a day (in the morning and mid-afternoon ). What changed: when to take this isosorbide mononitrate 60 mg SR tablet (24 hr) Commonly known as: IMDUR Take 1 tablet (60 mg) by mouth 1 time per day What changed: See the new instructions. levothyroxine 125 mcg tablet Take 1 tablet (125 mcg) by mouth 1 time a day in the morning What changed: See the new instructions. metOLazone 2.5 mg tablet Commonly known as: ZAROXOLYN Take 1 tablet (2.5 mg) by mouth on Tuesday, Tuesday, and Tuesday What changed: - when to take this - additional instructions nitroglycerin 0.4 mg sublingual tablet Commonly known as: NITROSTAT Dissolve 1 tablet (0.4 mg) under the tongue Every 5 minutes as needed for chest pain May repeat every 5 minutes for a total of 3 doses. What changed: additional instructions pramipexole 1.5 mg tablet Commonly known as: MIRAPEX Take 1 tablet (1.5 mg) by mouth every night at bedtime What changed: medication strength CONTINUE taking these medications albuterol HFA 108 (90 BASE) MCG/ACT inhaler Commonly known as: PROVENTIL,PROAIR,VENTOLIN Inhale 2 puffs orally every 4 to 6 hours as needed for shortness of breath Shake well before using. darbepoetin 25 mcg/mL Soln Commonly known as: ARANESP fluticasone 44 mcg/puff inhaler Commonly known as: FLOVENT HFA Inhale 2 puffs orally 2 times a day Shake well before using. Rinse mouth after use. HYDROcodone-acetaminophen 10-325 mg tablet Commonly known as: NORCO Take 1 tablet by mouth 3 times a day Earliest Fill Date: 01/27/18 sertraline 25 mg tablet Commonly known as: ZOLOFT Take 1 tablet (25 mg) by mouth 1 time per day vitamin D3 (cholecalciferol) 2000 unit capsule Take 1 capsule (2,000 Units) by mouth 1 time per day STOP taking these medications aspirin 81 mg enteric coated tablet Replaced by: aspirin 81 mg chewable tablet fluticasone 50 mcg/spray nasal spray Commonly known as: FLONASE potassium chloride 10 MEQ CR tablet Commonly known as: KLOR-CON M10 promethazine 25 mg tablet Commonly known as: PHENERGAN spironolactone 25 mg tablet Commonly known as: ALDACTONE Where to Get Your Medications Information about where to get these medications is not yet available ! Ask your nurse or doctor about these medications albuterol HFA 108 (90 BASE) MCG/ACT inhaler aspirin 81 mg chewable tablet atorvaSTATin 40 mg tablet fluticasone 44 mcg/puff inhaler furosemide 80 mg tablet HYDROcodone-acetaminophen 10-325 mg tablet isosorbide mononitrate 60 mg SR tablet (24 hr) levothyroxine 125 mcg tablet LORazepam 0.5 mg tablet magnesium hydroxide 400 mg/5 mL oral suspension melatonin 3 mg tablet metOLazone 2.5 mg tablet nitroglycerin 0.4 mg sublingual tablet potassium chloride 10 mEq CR tablet pramipexole 1.5 mg tablet sertraline 25 mg tablet ticagrelor 90 mg tablet vitamin D3 (cholecalciferol) 2000 unit capsule Discharge Instructions See AVS for discharge instructions. Tests Pending at Discharge NA Follow-Up Scheduled See AVS for Follow up appointments made Medical Decision Making The time spent on discharge coordination was 35 minutes.in this encounter Discharge Instructions Loyd Ann RN - 01/18/2018Heart Failure Discharge Instructions Diet: Low sodium (low salt) diet Fluid intake 2-3 liters daily unless otherwise advised Follow instructions from our dietitian if one visited you Activity: Plan time every day for walking or other activity. If you feel tired and short of breath, stop and rest. Continue activity when ready. Follow guidelines given by cardiac rehab and nursing staff. Treatments/Self Care: Weigh yourself daily at the same time of the day and with the same amount of clothing. Write down your weight every day and keep this record. Avoid NSAIDs or Non-Steroidal Anti-Inflammatory Drugs (ie: Advil, Ibuprofen, Motrin, etc.) Contact Your Doctor If You Have Any of These Symptoms: Sudden weight gain of 2 to 3 pounds in a day or 5 pounds in a week. This is a sign of fluid build-up. Swelling in feet , ankles, legs, or stomach area Shortness of breath or trouble breathing at rest Having to sleep with more pillows or sitting up Frequent or worsening cough A decrease in amount of urination Chest pain Confusion Questions about medications or other problems Review the Living Well with Heart Failure booklet for more information on caring for yourself or your loved one at home. in this encounter Progress Notes Tramaine Haley MD - 01/26/2018 1:19 PM CDTFormatting of this note may be different from the original. Impression CKD stage 3 from partially resolved BITA. Cardiorenal syndrome. Cardiomyopathy with preserved LVEF. CAD s/p PCI. Fluid overload. Anemia, partly from CKD. H/o Hypokalemia. Plan Stable on current dose diuretics. Cr stable. Weight down by 2 kgs. No changes from nephrology standpoint. Will sign off. Regi Guzman is a 77yr old female admitted on 01/17/2018. Subjective Patient was seen and examined today. Physical Exam General Appearance: well developed, well nourished,. No distress. Neck: supple, no significant adenopathy. No JVD. Chest:slight basal rales. Heart: S1, S2 present.Systolic murmur. Abdomen: soft, nontender, nondistended, no masses or organomegaly. Extremities: trace - 1+peripheral edema. Symmetric pedal pulses. Current Vital Signs Temp: 97.8 F (36.6 C) BP: 103/64 Pulse: 58 O2 Device: NC - no humidity O2 Flow Rate (L/min): 2 l/min Resp: 16 Pain Ratin (out of 10) Weight: 78 kg (171 lb 14.4 oz) SpO2: 98 % Intake and Output Intake/Output Summary (Last 24 hours) at 01/26/18 1319 Last data filed at 01/26/18 1010 Gross per 24 hour Intake 200 ml Output 1000 ml Net -800 ml Allergies Allergies have been reviewed. Regi is allergic to latex; codeine; seasonal; tape [adhesives]; and valium [diazepam]. Recent labs Lab Results Component Value Date WBC 9.2 01/26/2018 RBC 3.59 (L) 01/26/2018 HEMOGLOBIN 12.1 01/26/2018 HEMATOCRIT 34.9 (L) 01/26/2018 MCV 97.2 01/26/2018 MCH 33.7 01/26/2018 MCHC 34.7 01/26/2018 RDW 12.0 08/09/2013 PLTCOUNT 234 01/26/2018 NEUTROPCT 76.9 01/24/2018 BANDPCT 6 08/09/2013 LYMPHSPCT 14.1 01/24/2018 MONOSPCT 7.3 01/24/2018 EOSPCT 1.1 01/24/2018 BASOPHILPCT 0.6 01/24/2018 Lab Results Component Value Date GLUCOSE 233 (H) 01/26/2018 BUN 37 (H) 01/26/2018 CREATSERUM 1.26 (H) 01/26/2018 BCRATIO 29.4 (H) 01/26/2018 NA 140 01/26/2018 POTASSIUM 3.6 01/26/2018 CL 99 01/26/2018 CO2 29 01/26/2018 CA 9.3 01/26/2018 EGFR 41 (L) 01/26/2018 EGFRAF 50 (L) 01/26/2018 Medications in the hospital: Current Facility-Administered Medications Medication Dose Route Frequency Provider Last Rate Last Dose albuterol-ipratropium (DUO-NEB) 2.5-0.5 mg/3 mL inhalation solution 3 mL 3 mL Nebulization 4 times a day prn Leny Alvarado APRN-ORCHESTRATOR 3 mL at 0125 [START ON 01/27/2018] metOLazone (ZAROXOLYN) tablet 2.5 mg 2.5 mg Oral 1 time a day Tue Tramaine Haley MD ticagrelor (BRILINTA) tablet 90 mg 90 mg Oral 2 times a day Sushant Mean MD 90 mg at 01/26/18 0822 furosemide (LASIX) tablet 80 mg 80 mg Oral 2 times a day diuretic Tramaine Haley MD 80 mg at 01/26/18 0629 potassium chloride (K-TAB) CR tablet 20 mEq 20 mEq Oral 3 times a day Tramaine Haley MD 20 mEq at 01/26/18 0822 labetalol (NORMODYNE;TRANDATE) IV solution 20 mg 20 mg IV Every 10 minutes prn Shaggy Saldivar MD LORazepam (ATIVAN) 2 mg/mL injection solution 0.5 mg 0.5 mg IV Every 2 hours prn Emanuel Saldivar MD 0.5 mg at 01/26/18 0212 acetaminophen (TYLENOL) tablet 650 mg 650 mg Oral Every 4 hours prn Josue Agarwal DO nitroglycerin (NITROSTAT) sublingual tablet 0.4 mg 0.4 mg Sublingual Every 5 minutes prn Josue Agarwal DO aspirin chewable tablet 81 mg 81 mg Oral Daily Josue Agarwal DO 81 mg at 01/26/18 0822 melatonin tablet 3 mg 3 mg Oral at bedtime Aurelio Flanagan DO 3 mg at 11/13 dextrose 50% IV solution 50 mL 25 g IV PRN per parameter Kasey Junior DO glucagon for injection 1 mg vial 1 mg 1 mg Intramuscular PRN per parameter Kasey Junior DO dextrose chewable tablet 16 g 4 tablet Oral PRN per parameter Kasey Junior DO Or carbohydrate 15 g 15 g Oral PRN per parameter Kasey Junior DO ondansetron (ZOFRAN) injection solution 4 mg 4 mg IV Every 4 hours prn George Brito MD atorvaSTATin (LIPITOR) tablet 40 mg 40 mg Oral at bedtime Kasey Junior DO 40 mg at 01/25/181999 HYDROcodone-acetaminophen (NORCO) 10-325 mg tablet 1 tablet 1 tablet Oral 3 times a day Kasey Junior DO 1 tablet at 01/26/18 08 isosorbide mononitrate (IMDUR) SR tablet (24 hr) 60 mg 60 mg Oral Daily Tiffanie Frances MD 60 mg at 01/26/18 0822 levothyroxine tablet 125 mcg 125 mcg Oral 1 time a day before breakfast Kasey Junior DO 125 mcg at 01/26/18 0629 pramipexole (MIRAPEX) tablet 1.5 mg 1.5 mg Oral at bedtime Kasey Junior DO 1.5 mg at 01/25/181958 sertraline (ZOLOFT) tablet 25 mg 25 mg Oral daily Kasey Junior DO 25 mg at 01/26/18 0823 Sushant Mena MD - 01/26/2018 9:02 AM CDTFormatting of this note may be different from the original. DAILY PROGRESS NOTE Regi Guzman is a 77yr old female admitted on 01/17/2018 5:11 PM. Impression / Plan Hospital Issues: Active Problems: Seizure NSTEMI (non-ST elevated myocardial infarction) Historical Issues: Patient Active Problem List Diagnosis Hypothyroidism due to acquired atrophy of thyroid Benign essential hypertension Pure hypercholesterolemia Type 2 diabetes mellitus without complication, without long-term current use of insulin High risk medication use Insomnia due to medical condition Vitamin D deficiency Dermatochalasis - Both Carotid artery disease Pseudophakos - Right Subclavian artery stenosis, left Presbyopia - Both Sinus bradycardia Heart palpitations Restless legs syndrome Hyperkalemia CKD (chronic kidney disease) stage 4, GFR 15-29 ml/min Leukocytosis Sciatica of right side Chronic diastolic congestive heart failure Peripheral edema Emotional stress Arthritis of lumbar spine Arthritis of knee, left Arthritis of knee, right Hypokalemia Tobacco use Disorder of toe of right foot Dyspepsia Pain medication agreement signed Chronic, continuous use of opioids ESRD (end stage renal disease) on dialysis Seasonal allergic rhinitis due to pollen Fibromyalgia syndrome Panlobular emphysema Iron deficiency anemia Varicose veins of leg with complications Peripheral artery disease Foot pain, right Polyneuropathy associated with underlying disease Gastroesophageal reflux disease without esophagitis Nausea Infection of arteriovenous fistula Cellulitis and abscess of upper arm and forearm Arthropathy of lumbar facet joint Lumbar radiculopathy Arthralgia of hip Other back symptoms Spinal stenosis of lumbar region without neurogenic claudication Back pain Trochanteric bursitis Severe episode of recurrent major depressive disorder, with psychotic features Gait instability Thumb laceration, right, sequela Seizure NSTEMI (non-ST elevated myocardial infarction) Regi Guzman is a 77yr old female with the above medical history admitted 01/17/2018 with acute respiratory failure with hypoxia and hypercarbia due to acute decompensated diastolic CHF. Plan: Acute Respiratory Failure with Hypoxia and Hypercarbia: Acute on chronic diastolic CHF: Bilateral Pleural effusions: - Diuresis improved, off BIPAP - Lasix 80mg PO BID, improved, oxygen weaning Acute Diastolic CHF: likely due to Nstemi with SOB and chest pain: Hypotension, Bradycardia: PVD: Regional wall motion abnormality on echo, troponin plateau at 7. - Imdur, Lipitor, Toprol XL, Asprin, plavix due to expense of brilinta, although [id number] activity isback and suggests patient is a rapid metabolizer, which is concerning for risk of stent thrombosis; cardiology aware and recommended brilinta. CM notified to see if there is something we can do about making brilinta affordable for patient - Stop plavix, start brilinta 90mg BID - [facility] 01/23/2018 - MELIZA to LAD and diag, on brilinta (cannot take plavix) BITA on CKD III due to episode of severe hypotension and diuretics: Recent dialysis due to cardiorenal syndrome and improved in August 2017, now off dialysis: - IV NAC ordered prior to cath - Nephrology following, appreciate recs - Cr stable, monitor Possible Subacute focal seizure, resolved: likely intermittent myoclonic activity, muscle twitching related to cardiopulmonary issues that have improved - EEG negative 01/18/2018 - Monitor Pleural Effusions: - Likely due to CHF, will need outpatient follow up with CXR to ensure resolution Tobacco dependence: - replacement Hx of diet controlled DM: - monitorSBG Code: FULL DVT prevention: SCD GI prevention: Disposition: PT/OT following. Tentative discharge tomorrow. Discharge orders updated and pended, modified for [employer]; will send with extra refills of brilinta. Patient needs brilinta, cannot take plavix. Interval History HPI Feeling better today, improved after hypertonic saline neb, less congested. Reviewed rapid response events. Had an exacerbation of her breathing that improved with supportive care. Patient describes muscle twitching and absence of any post ictal state, patient likely did NOThave a seizure. Troponin was noted to be elevated this morning, though not significantly increased from where it was prior to [facility] with stent placement, and given that she is free of chest pain or any cardiac symptoms currently, the troponin elevation does not warrant further management at this time. She is down 1 kg today from yesterday, diuretic regimen seems to be working. Trying to wean off oxygen. Reviewed discharge planning with case management, updated as well on medication plan, discharge orders redone and updated. Review of Systems Review of Systems Respiratory: Negative for shortness of breath. Cardiovascular: Negative for chest pain. Gastrointestinal: Negative for abdominal pain. Physical Exam Vital Signs: Temp: 98 F (36.7 C) | BP: 108/71 | Pulse: 64 | Resp: 18 | Pain Ratin (out of 10) | Weight: 78 kg (171 lb 14.4 oz) | O2 Device: NC - no humidity O2 Flow Rate (L/min): 2 l/min | SpO2: 98 % Maximum Temperatures (last 24 hours) Temperature Maximum Max Temp 98.1 F (36.7 C) Intake and Output: 01/25 0700 - 01/26 0659 In: 400 [Oral:400] Out: 2049 [Urine:2049] Physical Exam Constitutional: No distress. HENT: Head: Normocephalic and atraumatic. Cardiovascular: Normal rate and intact distal pulses. Pulmonary/Chest: She has no wheezes. Diminished breath sounds Abdominal: Soft. She exhibits no distension. There is no tenderness. Musculoskeletal: No edema Neurological: She is alert. Moving all extremities No facial droop Skin: Skin is warm. She is not diaphoretic. Psychiatric: Her behavior is normal. Vitals reviewed. Labs Labs (Last day) 01/26/18 0231 - 01/26/18 0156 ECG/EKG 01/26/18 0231 01/26/18 0156 ECG/EKG EKG WAVEFORM Normal sinus rhythm: Possible Left atrial enlargement: LVH with repolarization abnormality: AbnormalECG: When compared with ECG of 26-JAN-2018 01:59,: Previous ECG has undetermined rhythm, needs review Ventricular Rate: 63 BPM Atrial Rate: 63 BPM P-R Interval: 170 ms QRS Duration: 100 ms Q-T Interval: 426 ms QTC Calculation(Bazett): 435 ms Calculated P [place]: 75 degrees Calculated R [place]: 66 degrees Calculated T [place]: -98 degrees WAVEFORM Atrial flutter with variable A-V block with premature ventricular or aberrantly conducted complexes:LVH with repolarization abnormality: Cannot rule out Inferior infarct , age undetermined: Abnormal ECG: When compared with ECG of Jan-2018 01:55,: QT has lengthened Ventricular Rate: 72 BPM Atrial Rate: 267 BPM QRS Duration: 94 ms Q-T Interval: 416 ms QTC Calculation(Bazett): 455 ms Calculated R [place]: 64 degrees Calculated T [place]: -88 degrees 01/25/18 2110 - 01/25/18 1120 GLUCOSE POINT OF CARE 01/25/18 2110 01/25/18 1658 01/25/18 1120 GLUCOSE POINT OF CARE Glucose POC 70-100 (mg/dL) 119 196 136 Medical Decision making MDM Reviewed: nursing note and vitals Reviewed previous: labs Total time spent in care of this patient 35 minutes with greater than 50 percent of the time spent in counseling and coordination of care as described above alongside reviewing chart, discussing with nursing, phone calls, reviewing labs, and imaging. Tramaine Haley MD - 01/25/2018 11:24 AM CDTFormatting of this note may be different from the original. Impression CKD stage 3 from partially resolved BITA. Cardiorenal syndrome. Cardiomyopathy with preserved LVEF. CAD s/p PCI. Fluid overload. Anemia, partly from CKD. H/o Hypokalemia. Plan She says she was on metolazone tree times a week prior to this recent admission and was doing well on it. Hence will change it to 3 times a week. Will get home 02 evaluation as she continues to need supplemental o2. Regi Guzman is a 77yr old female admitted on 01/17/2018. Subjective Patient was seen and examined today. She is doing well. Received 2 doses of iv lasix yesterday. Says she has had voided many times. I/O do not show accurate urine output. On 02, 2l/min Physical Exam General Appearance: well developed, well nourished,. No distress. Neck: supple, no significant adenopathy. No JVD. Chest:slight basal rales. Heart: S1, S2 present.Systolic murmur. Abdomen: soft, nontender, nondistended, no masses or organomegaly. Extremities: trace- - 1+ peripheral edema. Symmetric pedal pulses. Current Vital Signs Temp: 97.6 F (36.4 C) BP: 100/65 Pulse: 74 O2 Device: NC - cool humidity O2 Flow Rate (L/min): 2 l/min Resp: 16 Pain Ratin (out of 10) Weight: 79.1 kg (174 lb 4.8 oz) SpO2: 99 % Intake and Output Intake/Output Summary (Last 24 hours) at 01/25/18 1124 Last data filed at 01/25/18 0900 Gross per 24 hour Intake 760 ml Output 500 ml Net 260 ml Allergies Allergies have been reviewed. Regi is allergic to latex; codeine; seasonal; tape [adhesives]; and valium [diazepam]. Recent labs Lab Results Component Value Date WBC 10.6 01/24/2018 RBC 3.75 (L) 01/24/2018 HEMOGLOBIN 12.6 01/24/2018 HEMATOCRIT 36.5 01/24/2018 MCV 97.3 01/24/2018 MCH 33.6 01/24/2018 MCHC 34.5 01/24/2018 RDW 12.0 08/09/2013 PLTCOUNT 211 01/24/2018 NEUTROPCT 76.9 01/24/2018 BANDPCT 6 08/09/2013 LYMPHSPCT 14.1 01/24/2018 MONOSPCT 7.3 01/24/2018 EOSPCT 1.1 01/24/2018 BASOPHILPCT 0.6 01/24/2018 Lab Results Component Value Date GLUCOSE 111 (H) 01/25/2018 BUN 38 (H) 01/24/2018 CREATSERUM 1.11 (H) 01/24/2018 BCRATIO 34.2 (H) 01/24/2018 NA 139 01/24/2018 POTASSIUM 3.9 01/24/2018 CL 104 01/24/2018 CO2 24 01/24/2018 CA 8.9 01/24/2018 EGFR 48 (L) 01/24/2018 EGFRAF 58 (L) 01/24/2018 Medications in the hospital: Current Facility-Administered Medications Medication Dose Route Frequency Provider Last Rate Last Dose furosemide (LASIX) tablet 80 mg 80 mg Oral 2 times a day diuretic Tramaine Haley MD 80 mg at 01/25/18 0610 metOLazone (ZAROXOLYN) tablet 2.5 mg 2.5 mg Oral 1 time a day Wed Tramaine Haley MD 2.5 mg at 01/25/18 0748 potassium chloride (K-TAB) CR tablet 20 mEq 20 mEq Oral 3 times a day Tramaine Haley MD 20 mEq at 01/25/18 0748 labetalol (NORMODYNE;TRANDATE) IV solution 20 mg 20 mg IV Every 10 minutes prn Shaggy Saldivar MD LORazepam (ATIVAN) 2 mg/mL injection solution 0.5 mg 0.5 mg IV Every 2 hours prn Emanuel Saldivar MD acetaminophen (TYLENOL) tablet 650 mg 650 mg Oral Every 4 hours prn Josue Agarwal DO nitroglycerin (NITROSTAT) sublingual tablet 0.4 mg 0.4 mg Sublingual Every 5 minutes prn Josue Agarwal DO aspirin chewable tablet 81 mg 81 mg Oral Daily Josue Agarwal DO 81 mg at 01/25/18 07 clopidogrel (PLAVIX) tablet 75 mg 75 mg Oral Daily Aurelio Flanagan DO 75 mg at 01/25/18 0748 melatonin tablet 3 mg 3 mg Oral at bedtime Aurelio Flanagan DO 3 mg at 10/13 dextrose 50% IV solution 50 mL 25 g IV PRN per parameter Kasey Junior DO glucagon for injection 1 mg vial 1 mg 1 mg Intramuscular PRN per parameter Kasey Junior, dextrose chewable tablet 16 g 4 tablet Oral PRN per parameter Kasey Junior DO Or carbohydrate 15 g 15 g Oral PRN per parameter Kasey Junior, ondansetron (ZOFRAN) injection solution 4 mg 4 mg IV Every 4 hours prn George Brito MD atorvaSTATin (LIPITOR) tablet 40 mg 40 mg Oral at bedtime Kasey Junior DO 40 mg at 01/24/182033 HYDROcodone-acetaminophen (NORCO) 10-325 mg tablet 1 tablet 1 tablet Oral 3 times a day Kasey Junior DO 1 tablet at 01/25/1848 isosorbide mononitrate (IMDUR) SR tablet (24 hr) 60 mg 60 mg Oral Daily Tiffanie Frances MD 60 mg at 01/25/1848 levothyroxine tablet 125 mcg 125 mcg Oral 1 time a day before breakfast Kasey Junior DO 125 mcg at 01/25/18 0609 pramipexole (MIRAPEX) tablet 1.5 mg 1.5 mg Oral at bedtime Kasey Junior DO 1.5 mg at 01/24/182033 sertraline (ZOLOFT) tablet 25 mg 25 mg Oral daily Kasey Junior DO 25 mg at 01/25/1848 Sushant Mena MD - 01/25/2018 9:18 AM CDTFormatting of this note may be different from the original. DAILY PROGRESS NOTE Regi Guzman is a 77yr old female admitted on 01/17/2018 5:11 PM. Impression / Plan Hospital Issues: Active Problems: Seizure NSTEMI (non-ST elevated myocardial infarction) Historical Issues: Patient Active Problem List Diagnosis Hypothyroidism due to acquired atrophy of thyroid Benign essential hypertension Pure hypercholesterolemia Type 2 diabetes mellitus without complication, without long-term current use of insulin High risk medication use Insomnia due to medical condition Vitamin D deficiency Dermatochalasis - Both Carotid artery disease Pseudophakos - Right Subclavian artery stenosis, left Presbyopia - Both Sinus bradycardia Heart palpitations Restless legs syndrome Hyperkalemia CKD (chronic kidney disease) stage 4, GFR 15-29 ml/min Leukocytosis Sciatica of right side Chronic diastolic congestive heart failure Peripheral edema Emotional stress Arthritis of lumbar spine Arthritis of knee, left Arthritis of knee, right Hypokalemia Tobacco use Disorder of toe of right foot Dyspepsia Pain medication agreement signed Chronic, continuous use of opioids ESRD (end stage renal disease) on dialysis Seasonal allergic rhinitis due to pollen Fibromyalgia syndrome Panlobular emphysema Iron deficiency anemia Varicose veins of leg with complications Peripheral artery disease Foot pain, right Polyneuropathy associated with underlying disease Gastroesophageal reflux disease without esophagitis Nausea Infection of arteriovenous fistula Cellulitis and abscess of upper arm and forearm Arthropathy of lumbar facet joint Lumbar radiculopathy Arthralgia of hip Other back symptoms Spinal stenosis of lumbar region without neurogenic claudication Back pain Trochanteric bursitis Severe episode of recurrent major depressive disorder, with psychotic features Gait instability Thumb laceration, right, sequela Seizure NSTEMI (non-ST elevated myocardial infarction) Regi Guzman is a 77yr old female with the above medical history admitted 01/17/2018 with acute respiratory failure with hypoxia and hypercarbia due to acute decompensated diastolic CHF. Plan: Acute Respiratory Failure with Hypoxia and Hypercarbia: Acute on chronic diastolic CHF: Bilateral Pleural effusions: - Diuresis improved, off BIPAP - Lasix 80mg PO BID, improved, oxygen weaning Acute Diastolic CHF: likely due to Nstemi with SOB and chest pain: Hypotension, Bradycardia: PVD: Regional wall motion abnormality on echo, troponin plateau at 7. - Imdur, Lipitor, Toprol XL, Asprin, plavix due to expense of brilinta, although [id number] activity isback and suggests patient is a rapid metabolizer, which is concerning for risk of stent thrombosis; cardiology aware and recommended brilinta. CM notified to see if there is something we can do about making brilinta affordable for patient - Stop plavix, start brilinta 90mg BID - [facility] 01/23/2018 - MELIZA to LAD and diag, on plavix BITA on CKD III due to episode of severe hypotension and diuretics: Recent dialysis due to cardiorenal syndrome and improved in August 2017, now off dialysis: - IV NAC ordered prior to cath - Nephrology following, appreciate recs - Cr stable, monitor Possible Subacute focal seizure, resolved: likely intermittent myoclonic activity related to cardiopulmonary issues that have improved - EEG negative 01/18/2018 - Monitor Pleural Effusions: - Likely due to CHF, will need outpatient follow up with CXR to ensure resolution Tobacco dependence: - replacement Hx of diet controlled DM: - monitorSBG Code: FULL DVT prevention: SCD GI prevention: Disposition: PT/OT following. Tentative discharge tomorrow. Discharge orders pended. Interval History HPI Breathing improved, however feels that she has some excess phlegm that she cannot clear, feels thereis still significant phlegm there. Reviewed plan of care. Hypertonic saline neb ordered. Diuretics working well, weaning off of oxygen. Review of Systems Review of Systems Respiratory: Negative for shortness of breath. Cardiovascular: Negative for chest pain. Gastrointestinal: Negative for abdominal pain. Physical Exam Vital Signs: Temp: 98.2 F (36.8 C) | BP: 127/75 | Pulse: 76 | Resp: 16 | Pain Ratin (out of 10) | Weight: 79.1 kg (174 lb 4.8 oz) | O2 Device: NC - no humidity O2 Flow Rate (L/min): 2 l/min | SpO2: 96 % Maximum Temperatures (last 24 hours) Temperature Maximum Max Temp 98.2 F (36.8 C) Intake and Output: 01/24 0700 - 01/25 0659 In: 360 [Oral:360] Out: 200 [Urine:200] Physical Exam Constitutional: No distress. HENT: Head: Normocephalic and atraumatic. Cardiovascular: Normal rate and intact distal pulses. Pulmonary/Chest: She has no wheezes. Diminished breath sounds Abdominal: Soft. She exhibits no distension. There is no tenderness. Musculoskeletal: No edema Neurological: She is alert. Moving all extremities No facial droop Skin: Skin is warm. She is not diaphoretic. Psychiatric: Her behavior is normal. Vitals reviewed. Labs Labs (Last day) 01/24/18 2152 - 01/24/18 1150 GLUCOSE POINT OF CARE 01/24/18 2152 01/24/18 1150 GLUCOSE POINT OF CARE Glucose POC 70-100 (mg/dL) 161 114 Medical Decision making MDM Reviewed: nursing note and vitals Reviewed previous: labs Rosalio Heath MD - 01/24/2018 9:21 AM CDTFormatting of this note may be different from the original. Cardiology Progress Note Patient Name: Regi Guzman Admit Date: 01/17/2018 CSN: [id number] Assessment and Plan 1. NSTEMI 2. Bradycardia 3. CKD Stage III 4. PAD 5. T2DM 6. HLD Plan: - Continue ASA 81 mg daily - Continue Plavix 75 mg daily, discontinued Brilinta due to cost - Continue Lipitor 40 mg daily - Resume home dose Lasix 80 mg BID - Given hypotension and bradycardia, pt not a candidate for RICHA or beta-giovany regimen - Recommend patient follow up with heart failure clinic upon discharge Code Status: Full Code Appreciate the opportunity to be involved in this patient's care. Thank you for the consult, Cardiology will sign off Pt was seen and discussed with Dr. Sandra Heath MD Pager #[phone] PGY-1 [facility], [place] 01/24/2018 Interval History Patient continues in sinus bradycardia. Pt underwent successful coronary angiogram with PCI of LAD and diagonal on 01/23. She reports that her chest pain and SOB are improved this AM. Pt remains on NC 1L saturating well. She feels back to baseline. Pt's creatinine improved today from 1.29 to 1.11, likely secondary to NAC treatment. Review of Systems Cardiac, Resp, GI, and General are negative. All pertinent positives present in interval Hx. Current Vital Signs Temp: 97.9 F (36.6 C) BP: 105/84 Pulse: 66 O2 Device: NC - no humidity O2 Flow Rate (L/min): 1 l/min Resp: 16 Pain Ratin (out of 10) Weight: 79.7 kg (175 lb 11.2 oz) SpO2: 95 % Physical Exam Physical Exam Constitutional: She is oriented to person, place, and time. She appears well- developed and well-nourished. No distress. Breathing easily on NC 1L Neck: No JVD present. Cardiovascular: Normal rate, regular rhythm, normal heart sounds and intact distal pulses. No murmur heard. Pulmonary/Chest: Effort normal and breath sounds normal. No respiratory distress. She has no wheezes. She has no rales. Abdominal: Soft. Bowel sounds are normal. Musculoskeletal: Normal range of motion. She exhibits no edema. Neurological: She is alert and oriented to person, place, and time. Skin: Skin is warm and dry. She is not diaphoretic. No erythema. Labs I have reviewed all labs, and pertinent positives and negatives are discussed in the Assessment and Plan. Associated attestation - Debbi Flores DO - 01/24/2018 4:54 PM CDTI saw and evaluated the patient. Discussed with resident and agree with residents findings and plan as documented in the residents note.Sushant Mena MD - 01/24/2018 8:47 AM CDTFormatting of this note may be different from the original. DAILY PROGRESS NOTE Regi Guzman is a 77yr old female admitted on 01/17/2018 5:11 PM. Impression / Plan Hospital Issues: Active Problems: Seizure NSTEMI (non-ST elevated myocardial infarction) Historical Issues: Patient Active Problem List Diagnosis Hypothyroidism due to acquired atrophy of thyroid Benign essential hypertension Pure hypercholesterolemia Type 2 diabetes mellitus without complication, without long-term current use of insulin High risk medication use Insomnia due to medical condition Vitamin D deficiency Dermatochalasis - Both Carotid artery disease Pseudophakos - Right Subclavian artery stenosis, left Presbyopia - Both Sinus bradycardia Heart palpitations Restless legs syndrome Hyperkalemia CKD (chronic kidney disease) stage 4, GFR 15-29 ml/min Leukocytosis Sciatica of right side Chronic diastolic congestive heart failure Peripheral edema Emotional stress Arthritis of lumbar spine Arthritis of knee, left Arthritis of knee, right Hypokalemia Tobacco use Disorder of toe of right foot Dyspepsia Pain medication agreement signed Chronic, continuous use of opioids ESRD (end stage renal disease) on dialysis Seasonal allergic rhinitis due to pollen Fibromyalgia syndrome Panlobular emphysema Iron deficiency anemia Varicose veins of leg with complications Peripheral artery disease Foot pain, right Polyneuropathy associated with underlying disease Gastroesophageal reflux disease without esophagitis Nausea Infection of arteriovenous fistula Cellulitis and abscess of upper arm and forearm Arthropathy of lumbar facet joint Lumbar radiculopathy Arthralgia of hip Other back symptoms Spinal stenosis of lumbar region without neurogenic claudication Back pain Trochanteric bursitis Severe episode of recurrent major depressive disorder, with psychotic features Gait instability Thumb laceration, right, sequela Seizure NSTEMI (non-ST elevated myocardial infarction) Regi Guzman is a 77yr old female with the above medical history admitted 01/17/2018 ... Plan: Acute Respiratory Failure with Hypoxia and Hypercarbia: Acute on chronic diastolic CHF: Bilateral Pleural effusions: - Diuresis improved, off BIPAP - IV lasix today, transition to oral lasix tomorrow Acute Diastolic CHF: likely due to Nstemi with SOB and chest pain: Hypotension, Bradycardia: PVD: Regional wall motion abnormality on echo, troponin plateau at 7. - Imdur, Lipitor, Toprol XL, Asprin, plavix due to expense of brilinta - [id number] pending - [facility] 01/23/2018 - MELIZA to LAD and diag, on plavix BITA on CKD III due to episode of severe hypotension and diuretics: Recent dialysis due to cardiorenal syndrome and improved in August 2017, now off dialysis: - IV NAC ordered prior to cath - Nephrology following, appreciate recs Possible Subacute focal seizure, resolved: - EEG negative 01/18/2018 - Monitor Tobacco dependence: - replacement Hx of diet controlled DM: - monitorSBG Code: FULL DVT prevention: SCD GI prevention: Disposition: PT/OT following. Transitioning to oral diuretic regimen, ensure tolerating before discharge. Interval History HPI Feeling better today, dyspnea improved. Tolerating regular diet, urinating. Review of Systems Review of Systems Respiratory: Negative for shortness of breath. Cardiovascular: Negative for chest pain. Gastrointestinal: Negative for abdominal pain. Physical Exam Vital Signs: Temp: 97.9 F (36.6 C) | BP: 105/84 | Pulse: 66 | Resp: 16 | Pain Ratin (out of 10) | Weight: 79.7 kg (175 lb 11.2 oz) | O2 Device: NC - no humidity O2 Flow Rate (L/min): 1 l/min | SpO2: 95 % Maximum Temperatures (last 24 hours) Temperature Maximum Max Temp 98.5 F (36.9 C) Intake and Output: 01/23 0700 - 01/24 0659 In: 320 [Oral:320] Out: 1450 [Urine:1450] Physical Exam Constitutional: No distress. HENT: Head: Normocephalic and atraumatic. Cardiovascular: Normal rate and intact distal pulses. Pulmonary/Chest: She has no wheezes. Diminished breath sounds Abdominal: Soft. She exhibits no distension. There is no tenderness. Musculoskeletal: No edema Neurological: She is alert. Moving all extremities No facial droop Skin: Skin is warm. She is not diaphoretic. Psychiatric: Her behavior is normal. Vitals reviewed. Labs Labs (Last day) 01/23/18 1250 - 01/23/18 0901 BG ARTERIAL 01/23/18 1250 01/23/18 0901 BG ARTERIAL pH Arterial 7.35-7.45 7.35 7.26 pCO2 Arterial 35-45 (mmHg) 55 63 pO2 Arterial 80-100 (mmHg) 84 117 O2 Sat % Arterial 95-98 (%) 95 96 O2 Content Arterial 17.0-20.0 (Vol%) 17.1 18.9 Base Excess Arterial -2-2 (meq/L) 3 0 HCO3 (Bicarb) 20-29 (mmol/L) 30 28 Collection Site Arterial Lt radial Lt radial O2 Source NIV NIV 01/24/18 0818 - 01/24/18 08 CBC 01/24/18 08 CBC WBC 4.0-11.0 (K/uL) 10.6 RBC 3.80-5.30 (M/uL) 3.75 Hemoglobin 11.5-15.8 (g/dL) 12.6 Hematocrit 35.0-45.0 (%) 36.5 MCV 80.0-98.0 (fL) 97.3 MCH 25.5-34.0 (pg) 33.6 MCHC 31.5-36.5 (g/dL) 34.5 RDW-CV 11.5-15.5 (%) 12.9 RDW-SD 35.5-50.0 (fl) 46.2 Platelet Count 140-400 (K/uL) 211 MPV 8.5-12.0 (fL) 8.9 01/24/18 0715 - 01/23/18 0901 CHEMISTRY 01/24/18 0715 01/24/18 0715 01/23/18 09 CHEMISTRY Glucose 70-100 (mg/dL) 110 Sodium 135-145 (meq/L) 139 Potassium 3.5-5.3 (meq/L) 3.9 Chloride 99-110 (meq/L) 104 CO2 20-29 (meq/L) 24 Anion Gap with K 6-20 (meq/L) 15 BUN 6-22 (mg/dL) 38 Creatinine 0.60-1.10 (mg/dL) 1.11 BUN/Creatinine Ratio 10.0-25.0 34.2 Calcium 8.5-10.5 (mg/dL) 8.9 Ionized Calcium 1.12-1.32 (mmol/L) 1.17 Bilirubin Total 0.2-1.2 (mg/dL) 0.6 Bilirubin Direct 0.0-0.4 (mg/dL) 0.3 Bilirubin Indirect 0.0-0.8 (mg/dL) 0.3 Alkaline Phosphatase 30-150 (U/L) 101 ALT - SGPT 0-55 (U/L) 54 AST - SGOT 0-35 (U/L) 52 Protein Total 6.0-8.2 (g/dL) 6.4 Albumin 3.5-5.0 (g/dL) 3.3 Lactic Acid 0.5-2.2 (mmol/L) 0.9 eGFR >=60 (mL/min/1.73m2) 58 eGFR Non- >=60 (mL/min/1.73m2) 48 01/23/18 1250 - 01/23/18 0901 CO-OXIMETRY STUDIES 01/23/18 1250 01/23/18 0901 CO-OXIMETRY STUDIES Carbon Monoxide 0.0-3.0 (%) 1.1 1.0 Methemoglobin 0.0-3.0 (%) 0.5 0.6 01/24/18 0818 - 01/24/18 0818 DIFFERENTIAL 01/24/18 0818 DIFFERENTIAL Seg Neut Absolute 1.8-8.0 (K/uL) 8.2 Lymphocytes Absolute 0.8-4.1 (K/uL) 1.5 Monocytes Absolute 0.0-1.0 (K/uL) 0.8 Eosinophils Absolute 0.0-0.7 (K/uL) 0.1 Basophil Absolute 0.0-0.2 (K/uL) 0.1 Immature Granulocyte Absolute 0.00-0.06 (K/uL) 0.21 Neutrophils Abs. (Segs and Bands) (/uL) 8200 Neutrophils Percent (%) 76.9 Lymphocytes Percent (%) 14.1 Monocytes Percent (%) 7.3 Immature Granulocyte Percent (%) 2.0 Eosinophils Percent (%) 1.1 Basophil Percent (%) 0.6 01/23/18 1903 - 01/23/18 1105 ECG/EKG 01/23/18 1903 01/23/18 1615 01/23/18 1105 ECG/EKG EKG WAVEFORM Sinus rhythm with marked sinus arrythmia: Nonspecific ST and T wave abnormality : Abnormal ECG: When compared with ECG of 23-JAN-2018 16:15,: No significant change was found Ventricular Rate: 62 BPM Atrial Rate: 62 BPM P-R Interval: 160 ms QRS Duration: 92 ms Q-T Interval: 430 ms QTC Calculation(Bazett): 436 ms Calculated P [place]: 22 degrees Calculated R [place]: 25 degrees Calculated T [place]: 166 degrees WAVEFORM Normal sinus rhythm: Possible Left atrial enlargement: Nonspecific ST and T wave abnormality: Abnormal ECG: When compared with ECG of 23-JAN-2018 11:05,: Premature atrial complexes are no longer Present Ventricular Rate: 65 BPM Atrial Rate: 65 BPM P-R Interval: 178 ms QRS Duration: 96 ms Q-T Interval: 406 ms QTC Calculation(Bazett): 422 ms Calculated P [place]: 61 degrees Calculated R [place]: 27 degrees Calculated T [place]: 153 degrees WAVEFORM Sinus bradycardia with Premature atrial complexes: ST & T wave abnormality, consider inferior ischemia: Abnormal ECG: When compared with ECG of 23-JAN-2018 08:41,: Premature atrial complexes are now Present: Vent. rate has decreased BY 41 BPM: T wave inversion more evident in Lateral leads Ventricular Rate: 53 BPM Atrial Rate: 53 BPM P-R Interval: 168 ms QRS Duration: 98 ms Q-T Interval: 462 ms QTC Calculation(Bazett): 433 ms Calculated P [place]: 49 degrees Calculated R [place]: 68 degrees Calculated T [place]: 172 degrees 01/23/18 1444 - 01/23/18 1444 GENERAL COAGULATION 01/23/18 1444 GENERAL COAGULATION Activated Clotting Time 100-150 (Secs) 197 01/24/18 0811 - 01/23/18 2105 GLUCOSE POINT OF CARE 01/24/18 0811 01/23/18 2105 GLUCOSE POINT OF CARE Glucose POC 70-100 (mg/dL) 86 108 01/24/18 0715 - 01/23/18 0901 OTHER 01/24/18 0715 01/23/18 1250 01/23/18 0901 OTHER Age (Years) 77 Allens Test Positive Positive p50 25.00-29.00 (mmHg) 26.20 30.94 Medical Decision making MDM Reviewed: nursing note and vitals Reviewed previous: labs Ranjan Mcdaniels MD - 01/23/2018 11:58 AM CDTFormatting of this note may be different from the original. Assessment and Plan: 1. NSTEMI 2. Bradycardia 3. CKD stage III 4. PAD 5. T2DM 6. HLD Had an at length discussion with the daughter about goals of care and reviewed advance care directive. At this time angiogram okay per advance care directive and the daughter. Given the patient's initial presentation and ongoing symptoms she would likely benefit from an angiogram. Patient's kidneys function has improved 1.29 from 1.9 previously. Patient is at risk for a BITA with angiogram this was explained to both the daughter and the patient previously. Patient had received Ativan this morning and was no longer coherent. The patient's daughter verified consent for the patient with discuss of benefits and risk not limited to bleeding, ID, stroke, arrhythmia, and worsening kidney function, and dye reaction. Also The patient expressed desire for this procedure on Tuesday which was not performed at that time due to her BITA. Discussed care with Dr. Mena, and we would recommend touching base with nephrology and if warranted okay to give NAC. Plan: Angiogram today NAC per primary team Consider nephrology Patient was seen and discussed with Dr. Sandra Mcdaniels MD Internal Medicine PGY-1 Pager [phone] Subjective: Patient continues to have sinus bradycardia with sinus arrhythmia. She continues to have symptoms of shortness of breath likely anginal equivalent symptoms which call rapid response this morning for which she received Ativan and was started on BiPAP for. She continues to be hypotensive with map of 60 -65 with heart rates between 40 and 55. Continue to be around 2 after reaching peak is 7, creatinine is improved from 1.9 to 1.29 Ros: 4 system ROS: Cardiac, Resp, GI, and General are negative unless noted above in HPI. Objective: Current Vital Signs Temp: 97.5 F (36.4 C) BP: 86/50 Pulse: 55 O2 Device: BiPAP O2 Flow Rate (L/min): 15 l/min Resp: 18 Pain Ratin (out of 10) Weight: 78.1 kg (172 lb 2.2 oz) SpO2: 98 % Exam: Gen: NAD, comfortable in bed on BIPAP Resp: coarse breath sounds without accessory muscle use, with crackles Cardiac: S1/S1 no murmur, bradycardia Abd: soft non-tender Extremities: 2+ edema, pulses 2+ bilaterally Neuro: non focal neurologic, patient is sedated and aroused to voice but would not stay awake. Associated attestation - Debbi Flores DO - 01/24/2018 5:20 PM CDTI saw and evaluated the patient. Discussed with resident and agree with residents findings and plan as documented in the residents note.Sushant Mena MD - 01/23/2018 8:43 AM CDTFormatting of this note may be different from the original. DAILY PROGRESS NOTE Regi Guzman is a 77yr old female admitted on 01/17/2018 5:11 PM. Impression / Plan Hospital Issues: Active Problems: Seizure NSTEMI (non-ST elevated myocardial infarction) Historical Issues: Patient Active Problem List Diagnosis Hypothyroidism due to acquired atrophy of thyroid Benign essential hypertension Pure hypercholesterolemia Type 2 diabetes mellitus without complication, without long-term current use of insulin High risk medication use Insomnia due to medical condition Vitamin D deficiency Dermatochalasis - Both Carotid artery disease Pseudophakos - Right Subclavian artery stenosis, left Presbyopia - Both Sinus bradycardia Heart palpitations Restless legs syndrome Hyperkalemia CKD (chronic kidney disease) stage 4, GFR 15-29 ml/min Leukocytosis Sciatica of right side Chronic diastolic congestive heart failure Peripheral edema Emotional stress Arthritis of lumbar spine Arthritis of knee, left Arthritis of knee, right Hypokalemia Tobacco use Disorder of toe of right foot Dyspepsia Pain medication agreement signed Chronic, continuous use of opioids ESRD (end stage renal disease) on dialysis Seasonal allergic rhinitis due to pollen Fibromyalgia syndrome Panlobular emphysema Iron deficiency anemia Varicose veins of leg with complications Peripheral artery disease Foot pain, right Polyneuropathy associated with underlying disease Gastroesophageal reflux disease without esophagitis Nausea Infection of arteriovenous fistula Cellulitis and abscess of upper arm and forearm Arthropathy of lumbar facet joint Lumbar radiculopathy Arthralgia of hip Other back symptoms Spinal stenosis of lumbar region without neurogenic claudication Back pain Trochanteric bursitis Severe episode of recurrent major depressive disorder, with psychotic features Gait instability Thumb laceration, right, sequela Seizure NSTEMI (non-ST elevated myocardial infarction) Regi Guzman is a 77yr old female with the above medical history admitted 01/17/2018 ... Plan: Acute Respiratory Failure with Hypoxia and Hypercarbia: Acute on chronic diastolic CHF: Bilateral Pleural effusions: - Lasix 40mg IV once given today for rapid response - Received IV ativan 2mg once, ABG showing pH 7.26 with elevated pCO2, do not administer any furtherativan for now - RT managing BIPAP, currently saturating appropriately on BIPAP, wean oxygen as tolerated - Underlying issue likely cardiac, cardiology following Acute Diastolic CHF: likely due to Nstemi with SOB and chest pain: Hypotension, Bradycardia: PVD: Regional wall motion abnormality on echo, troponin plateau at 7. - Imdur, Lipitor, Toprol XL, Asprin, plavix due to expense of brilinta - [id number] pending - Plan for Cardiac cath on 01/23 to assess further intervention and prognosis BITA on CKD III due to episode of severe hypotension and diuretics: Recent dialysis due to cardiorenal syndrome and improved in August 2017, now off dialysis: - IV NAC ordered prior to cath - Nephrology to evaluate tomorrow Possible Subacute focal seizure, resolved: - EEG negative 01/18/2018 - Monitor Tobacco dependence: - replacement Hx of diet controlled DM: - monitorSBG Code: FULL DVT prevention: SCD GI prevention: Disposition: Needs PT/OT. Cardiac cath today. Nephrology to see tomorrow. Argueta to be placed today. Interval History HPI Rapid response this morning, was in respiratory distress. Ativan 2mg IV had been ordered and given,lasix 40mg IV as well. CXR was acquired, which looks more volume overloaded. ABG was acquired which showed respiratory acidosis with acidemia; BIPAP already started. On evaluation patient is stuporous, awakens to voice and gentle stimulation. Denies any acute complaints. On BIPAP. Discussed plan with Cardiology; [facility] today, concern being multivessel disease. No urine output yet, argueta to be placed today. Discussed case with Nephrology on site nurse, who will evaluate patient tomorrow, however if need arises for acute dialysis then nephrology will need to be called sooner. Review of Systems Review of Systems Respiratory: Positive for shortness of breath. Cardiovascular: Negative for chest pain. Gastrointestinal: Negative for abdominal pain. Physical Exam Vital Signs: Temp: 98.1 F (36.7 C) | BP: 164/107 | Pulse: 100 | Resp: 18 | Pain Ratin (out of 10) | Weight: 78.1 kg (172 lb 2.2 oz) | O2 Device: NC - no humidity O2 Flow Rate (L/min): 3 l/min | SpO2: 92 % Maximum Temperatures (last 24 hours) Temperature Maximum Max Temp 98.4 F (36.9 C) Intake and Output: 01/22 0700 - 01/23 0659 In: 950 [Oral:950] Out: 600 [Urine:600] Physical Exam Constitutional: She appears distressed. HENT: Head: Normocephalic and atraumatic. Cardiovascular: Normal rate and intact distal pulses. Pulmonary/Chest: She has no wheezes. Diminished breath sounds Abdominal: Soft. She exhibits no distension. There is no tenderness. Musculoskeletal: No edema Skin: Skin is warm. She is not diaphoretic. Vitals reviewed. on BIPAP. Stuporous. Moves extremities when awakened. Labs Labs (Last day) 01/23/18 0550 - 01/23/18 0550 CHEMISTRY 01/23/18 0550 01/23/18 0550 CHEMISTRY Glucose 70-100 (mg/dL) 97 Sodium 135-145 (meq/L) 140 Potassium 3.5-5.3 (meq/L) 4.4 Chloride 99-110 (meq/L) 104 CO2 20-29 (meq/L) 24 Anion Gap with K 6-20 (meq/L) 16 BUN 6-22 (mg/dL) 45 Creatinine 0.60-1.10 (mg/dL) 1.27 BUN/Creatinine Ratio 10.0-25.0 35.4 Calcium 8.5-10.5 (mg/dL) 8.9 Corrected Calcium 8.5-10.5 (mg/dL) 9.4 Phosphorus 2.5-4.5 (mg/dL) 4.2 Magnesium 1.8-2.4 (mg/dL) 2.5 Albumin 3.5-5.0 (g/dL) 3.4 eGFR >=60 (mL/min/1.73m2) 50 eGFR Non- >=60 (mL/min/1.73m2) 41 01/22/182111 - 01/22/18 0846 GLUCOSE POINT OF CARE 01/22/18 2112 01/22/18 1726 01/22/18 1219 01/22/18 0846 GLUCOSE POINT OF CARE Glucose POC 70-100 (mg/dL) 155 174 122 95 01/23/18 0550 - 01/23/18 0550 OTHER 01/23/18 0550 OTHER Age (Years) 77 Medical Decision making MDM Reviewed: nursing note and vitals Reviewed previous: labs Total time spent in care of this patient 35 minutes with greater than 50 percent of the time spent in counseling and coordination of care as described above alongside reviewing chart, discussing with nursing, phone calls, reviewing labs, and imaging. Aurelio Flanagan DO - 01/22/2018 11:32 AM CDTFormatting of this note may be different from the original. DAILY PROGRESS NOTE Regi Guzman is a 77yr old female admitted on 01/17/2018 5:11 PM. Impression / Plan Nstemi with SOB and chest pain: Hypotension, Bradycardia: PVD: Regional wall motion abnormality on echo, troponin plateau at 7. - Imdur, Lipitor, Toprol XL, Asprin, plavix due to expense of brilinta - [id number] pending - Heparin stopped after discussion with cardiology - Plan for Cardiac cath on 01/23 to assess further intervention and prognosis - PT/OT BITA on CKD III due to episode of severe hypotension and diuretics: Recent dialysis due to cardiorenal syndrome and improved in August 2017, now off dialysis: - hold lasix but may give 40 IV if needed - stop IV fluids and encourage oral fluids due to CHF and BITA Acute on chronic diastolic CHF: Bilateral Pleural effusions: - BID lasix held due to BITA - Hold spironolactone - May give one time 40 lasix if more SOB this afternoon but currently patient and family do not wantlasix until after cardiac cath Possible Subacute focal seizure, resolved: - EEG negative and no signs of seizure today Tobacco dependence: - replacement Hx of diet controlled DM: DVT prophylaxis: Heparin drip stopped due to bleeding and hematuria Interval History HPI Discussed SOB today and she does not want to risk IV lasix right now. I would recommend small dose lasix if SOB continues as we know she is fluid overloaded. Continue current and plan for angiogram in am. May need continued IV diuresis post cath. Review of Systems Review of Systems Constitutional: Positive for fatigue. Respiratory: Negative for shortness of breath. Cardiovascular: Negative for chest pain and palpitations. Gastrointestinal: Negative for abdominal pain. Genitourinary: Negative for difficulty urinating. Musculoskeletal: Positive for gait problem. Skin: Negative for pallor. Allergic/Immunologic: Negative for immunocompromised state. Neurological: Negative for tremors, seizures and weakness. Hematological: Does not bruise/bleed easily. Psychiatric/Behavioral: Negative for confusion. Physical Exam Vital Signs: Temp: 97.7 F (36.5 C) | BP: 112/83 | Pulse: 66 | Resp: 16 | Pain Ratin (out of 10) | Weight: 79.8 kg (175 lb 13.1 oz) | O2 Device: NC - no humidity O2 Flow Rate (L/min): 3 l/min | SpO2: 95 % Maximum Temperatures (last 24 hours) Temperature Maximum Max Temp 98.3 F (36.8 C) Intake and Output: 01/21 0700 - 01/22 0659 In: 820 [Oral:820] Out: 400 [Urine:400] Physical Exam Constitutional: She is oriented to person, place, and time. She appears well- nourished. HENT: Head: Atraumatic. Eyes: EOM are normal. Cardiovascular: Normal rate and regular rhythm. Pulmonary/Chest: No stridor. No respiratory distress. She has rales. Abdominal: There is no tenderness. Musculoskeletal: She exhibits edema. Neurological: She is alert and oriented to person, place, and time. No cranial nerve deficit. Skin: Skin is warm and dry. Psychiatric: She has a normal mood and affect. Labs Labs (Last day) 01/22/18 0538 - 01/22/18 0538 CBC 01/22/18 0538 CBC WBC 4.0-11.0 (K/uL) 7.6 RBC 3.80-5.30 (M/uL) 3.68 Hemoglobin 11.5-15.8 (g/dL) 12.4 Hematocrit 35.0-45.0 (%) 36.2 MCV 80.0-98.0 (fL) 98.4 MCH 25.5-34.0 (pg) 33.7 MCHC 31.5-36.5 (g/dL) 34.3 RDW-CV 11.5-15.5 (%) 12.7 RDW-SD 35.5-50.0 (fl) 45.9 Platelet Count 140-400 (K/uL) 222 MPV 8.5-12.0 (fL) 9.4 01/22/18 0538 - 01/22/18 0538 CHEMISTRY 01/22/18 0538 01/22/18 0538 CHEMISTRY Glucose 70-100 (mg/dL) 110 Sodium 135-145 (meq/L) 137 Potassium 3.5-5.3 (meq/L) 3.9 Chloride 99-110 (meq/L) 100 CO2 20-29 (meq/L) 23 Anion Gap with K 6-20 (meq/L) 18 BUN 6-22 (mg/dL) 49 Creatinine 0.60-1.10 (mg/dL) 1.29 BUN/Creatinine Ratio 10.0-25.0 38.0 Calcium 8.5-10.5 (mg/dL) 8.9 Corrected Calcium 8.5-10.5 (mg/dL) 9.5 Phosphorus 2.5-4.5 (mg/dL) 3.8 Magnesium 1.8-2.4 (mg/dL) 2.2 Albumin 3.5-5.0 (g/dL) 3.2 eGFR >=60 (mL/min/1.73m2) 49 eGFR Non- >=60 (mL/min/1.73m2) 40 01/22/18 0846 - 01/21/18 1154 GLUCOSE POINT OF CARE 01/22/18 0846 01/21/18 2131 01/21/18 1154 GLUCOSE POINT OF CARE Glucose POC 70-100 (mg/dL) 95 141 112 01/21/18 2255 - 01/21/18 2255 URINALYSIS 01/21/18 2255 01/21/18 2255 URINALYSIS Color Urine Colorless, Yellow, Straw, Dark Yellow, Valeria Yellow Clarity Urine Clear Clear Specific [place] 1.002-1.035 1.017 Glucose Urine Negative Negative Bilirubin Urine <2 mg/dL <2 mg/dL Ketone Urine Negative, 10 mg/dL Negative Blood Urine Negative Small pH Urine 5.0, 5.5, 6.0, 6.5, 7.0, 7.5, 8.0 5.5 Protein Urine Negative 100 mg/dL Nitrite Urine Negative Negative Leukocyte Esterase Urine Negative Negative Urobilinogen Urine 0.2 EU/dL, 1.0 EU/dL 0.2 EU/dL WBC Urine Negative, 0-2, 3-5 (/HPF) 0-2 RBC Urine Negative, 0-2 (/HPF) 6-10 Epithelial Cells Negative, Rare (0-1), Occ (2-5), Few (6-15) (/LPF) Mod (16-30 ) Bacteria Negative, Rare (0-5), Few (6-30) (/HPF) Negative Cast, Hyaline Negative, 0-2 (/LPF) 0-2 01/22/18 0538 - 01/22/18 0538 OTHER 01/22/18 0538 OTHER Age (Years) 77 Medical Decision making Medical Decision Making George Brito MD - 01/21/2018 11:16 PM CDTCross cover note Nursing called about increased sob,admitted with nstemi cxr showing decompensated chf,bilateral moderate pleural effusion,is on high dose lasix at home 80 mg bid,prescribed 60 mg iv lasix,apparently the daughter wants only inhaler and no diuretics,hold lasix and zaroxlyn for now and have am team address this,if deteriorates further overnight,might have to give the lasix.Also page [phone] in house physician to evaluate if gets worse.Aurelio Flanagan DO - 01/21/2018 11:03 AM CDTFormatting of this note may be different from the original. DAILY PROGRESS NOTE Regi Guzman is a 77yr old female admitted on 01/17/2018 5:11 PM. Impression / Plan Nstemi with SOB and chest pain: Hypotension, Bradycardia: PVD: Regional wall motion abnormality on echo, troponin plateau at 7. - Imdur, Lipitor, Toprol XL, Asprin, plavix due to expense of brilinta - [id number] pending - Heparin stopped after discussion with cardiology - Plan for Cardiac cath on Tuesday to assess further intervention and prognosis - PT/OT BITA on CKD III: - hold lasix - stop IV fluids and encourage oral fluids due to CHF and BITA Acute on chronic diastolic CHF: - BID lasix held due to BITA - Hold spironolactone Recent dialysis due to cardiorenal syndrome and improved in August 2017, now off dialysis: Possible Subacute focal seizure, resolved: - EEG negative and no signs of seizure today Tobacco dependence: - replacement Hx of diet controlled DM: DVT prophylaxis: Heparin drip stopped due to bleeding and hematuria Interval History HPI More SOB today and will stop heparin drip and IVF. Did have some hematuria and is bleeding from IV site. Long discussion today about medical problems and of her son recently. She wants to do what is needed at this time as she is hoping to help with his young daughters that are currently with their mother. Discussed possibly not being able to intervene on heart disease but will optimize all options as able. She does want to continue with cath when able, possibly Tuesday due to BITA. Review of Systems Review of Systems Constitutional: Positive for fatigue. Respiratory: Negative for shortness of breath. Cardiovascular: Negative for chest pain and palpitations. Gastrointestinal: Negative for abdominal pain. Genitourinary: Negative for difficulty urinating. Musculoskeletal: Positive for gait problem. Skin: Negative for pallor. Allergic/Immunologic: Negative for immunocompromised state. Neurological: Negative for tremors, seizures and weakness. Hematological: Does not bruise/bleed easily. Psychiatric/Behavioral: Negative for confusion. Physical Exam Vital Signs: Temp: 97.9 F (36.6 C) | BP: 100/62 | Pulse: 55 | Resp: 16 | Pain Ratin (out of 10) | Weight: 79.6 kg (175 lb 7.8 oz) | O2 Device: NC - no humidity O2 Flow Rate (L/min): 2 l/min | SpO2: 100 % Maximum Temperatures (last 24 hours) Temperature Maximum Max Temp 98.2 F (36.8 C) Intake and Output: 01/20 0700 - 01/21 0659 In: 1222 Out: 850 [Urine:850] Physical Exam Constitutional: She is oriented to person, place, and time. She appears well- nourished. HENT: Head: Atraumatic. Eyes: EOM are normal. Cardiovascular: Normal rate and regular rhythm. Pulmonary/Chest: No stridor. No respiratory distress. She has rales. Abdominal: There is no tenderness. Musculoskeletal: She exhibits edema. Neurological: She is alert and oriented to person, place, and time. No cranial nerve deficit. Skin: Skin is warm and dry. Psychiatric: She has a normal mood and affect. Labs Labs (Last day) 01/21/18 1020 - 01/21/18 0637 CBC 01/21/18 1020 01/21/18 0637 CBC WBC 4.0-11.0 (K/uL) 8.3 6.8 RBC 3.80-5.30 (M/uL) 3.71 3.77 Hemoglobin 11.5-15.8 (g/dL) 12.5 12.5 Hematocrit 35.0-45.0 (%) 36.6 37.6 MCV 80.0-98.0 (fL) 98.7 99.7 MCH 25.5-34.0 (pg) 33.7 33.2 MCHC 31.5-36.5 (g/dL) 34.2 33.2 RDW-CV 11.5-15.5 (%) 12.7 12.9 RDW-SD 35.5-50.0 (fl) 46.1 46.9 Platelet Count 140-400 (K/uL) 220 195 MPV 8.5-12.0 (fL) 9.3 9.3 01/21/18 0637 - 01/20/18 1220 CHEMISTRY 01/21/18 0637 01/20/18 1220 CHEMISTRY Glucose 70-100 (mg/dL) 103 140 Sodium 135-145 (meq/L) 137 138 Potassium 3.5-5.3 (meq/L) 3.7 3.5 Chloride 99-110 (meq/L) 99 98 CO2 20-29 (meq/L) 27 30 Anion Gap with K 6-20 (meq/L) 15 14 BUN 6-22 (mg/dL) 50 51 Creatinine 0.60-1.10 (mg/dL) 1.48 1.84 BUN/Creatinine Ratio 10.0-25.0 33.8 27.7 Calcium 8.5-10.5 (mg/dL) 8.8 8.7 Corrected Calcium 8.5-10.5 (mg/dL) 9.4 9.4 Phosphorus 2.5-4.5 (mg/dL) 4.7 4.8 Albumin 3.5-5.0 (g/dL) 3.2 3.1 eGFR >=60 (mL/min/1.73m2) 42 32 eGFR Non- >=60 (mL/min/1.73m2) 34 27 01/21/18 1020 - 01/21/18 1020 DIFFERENTIAL 01/21/18 1020 DIFFERENTIAL Seg Neut Absolute 1.8-8.0 (K/uL) 6.2 Lymphocytes Absolute 0.8-4.1 (K/uL) 1.3 Monocytes Absolute 0.0-1.0 (K/uL) 0.6 Eosinophils Absolute 0.0-0.7 (K/uL) 0.2 Basophil Absolute 0.0-0.2 (K/uL) 0.0 Immature Granulocyte Absolute 0.00-0.06 (K/uL) 0.14 Neutrophils Abs. (Segs and Bands) (/uL) 6200 Neutrophils Percent (%) 74.9 Lymphocytes Percent (%) 15.9 Monocytes Percent (%) 6.6 Immature Granulocyte Percent (%) 1.7 Eosinophils Percent (%) 2.1 Basophil Percent (%) 0.5 01/21/18 0637 - 01/20/18 1130 GENERAL COAGULATION 01/21/18 0637 01/20/18 1935 01/20/18 1220 01/20/18 1130 GENERAL COAGULATION APTT 24-35 (secs) 49 67 136 >150 01/21/18 0750 - 01/20/18 1133 GLUCOSE POINT OF CARE 01/21/18 0750 01/20/18 1800 01/20/18 1133 GLUCOSE POINT OF CARE Glucose POC 70-100 (mg/dL) 122 135 147 01/21/18 0637 - 01/20/18 1220 OTHER 01/21/18 0637 01/20/18 1220 OTHER [age]Years) [age] Medical Decision making Medical Decision Making Total time spent in care of this patient 35 minutes with greater than 50 percent of the time spent in counseling and coordination of care as described above alongside reviewing chart, discussing with nursing, phone calls, reviewing labs, and imaging. Gary Gerard MD - 01/21/2018 8:07 AM CDTFormatting of this note may be different from the original. Cardiology Hospital Progress Note Assessment / Plan Active Problems: Seizure NSTEMI (non-ST elevated myocardial infarction) Resolved Problems: * No resolved hospital problems. * Plan: Creatinine slightly better today. Would recommend another day or 2 before reconsidering issueof angiography. Patient somewhat ambivalent about that procedure and given the risk and fairly shallow rewarded opportunity would want to family involved in a this decision. HPI / History / ROS Regi Guzman is a 77yr old female admitted on 01/17/2018. HPI no chest pain overnight. Blood pressure satisfactory pulse 65. Creatinine did improve slightlyovernight. Will repeat tomorrow as to whether or not she wants to proceed with an angiogram and if so would recommend doing Tuesday as she still gets several days in the hospital Review of Systems Physical / Results Current Vital Signs Temp: 97.8 F (36.6 C) BP: 109/62 Weight: 79.6 kg (175 lb 7.8 oz) SpO2: 99 % Resp: 16 Pulse: 65 O2 Device: NC - no humidity O2 Flow Rate (L/min): 2 l/min Pain Ratin Maximum Temperatures (last 24 hours) Temperature Maximum Max Temp 98.2 F (36.8 C) Physical Exam Constitutional: She appears chronically ill. Cardiovascular: Normal rate and regular rhythm. Pulmonary/Chest: Breath sounds normal. Musculoskeletal: She exhibits no edema. Gary Gerard MD - 01/20/2018 12:42 PM CDTFormatting of this note may be different from the original. Cardiology Hospital Progress Note Assessment / Plan Active Problems: Seizure NSTEMI (non-ST elevated myocardial infarction) Resolved Problems: * No resolved hospital problems. * Plan: Patient now considering heart cath. I did discuss with her the risks and options and althoughthe likelihood of finding isolated disease treatable with the stent is very low it's not 0. As it'sunlikely to find this I would rather delay her catheterization for at least 24 hours to see if her creatinine does not continue trending up as I would not want to cause renal failure just to find that we don't have anything to offer. I will review her creatinine in the morning to determine if a limited angiogram would then be possible and somewhat safer. HPI / History / ROS Regi Guzman is a 77yr old female admitted on 01/17/2018. HPI Troponin trending down patient not experiencing any active chest pain but now considering coronary angiogram. I discussed the relative risk with her and because of the elevated creatinine today back up to 1.9 I would recommend postponing until that has trended back down in the next few days. Review of Systems Physical / Results Current Vital Signs Temp: 97.5 F (36.4 C) BP: 89/51 Weight: 76.3 kg (168 lb 3.4 oz) SpO2: 98 % Resp: 16 Pulse: 48 O2 Device: NC - no humidity O2 Flow Rate (L/min): 3 l/min Pain Ratin Maximum Temperatures (last 24 hours) Temperature Maximum Max Temp 98.2 F (36.8 C) Physical Exam Constitutional: No distress. She appears chronically ill. Cardiovascular: Regular rhythm. Bradycardia present. Pulmonary/Chest: Breath sounds normal. Musculoskeletal: She exhibits no edema. Aurelio Flanagan, DO - 01/20/2018 11:26 AM CDTFormatting of this note may be different from the original. DAILY PROGRESS NOTE Regi Guzman is a 77yr old female admitted on 01/17/2018 5:11 PM. Impression / Plan Nstemi with SOB and chest pain: Hypotension, Bradycardia: PVD: Regional wall motion abnormality on echo, troponin plateau at 7. - Imdur, Lipitor, Toprol XL, Asprin, plavix due to expense of brilinta - [id number] ordered for plavix evaluation - Heparin drip and now patient is interested in cardiac cath but will await kidney improvement - PT/OT BITA on CKD III: - hold lasix - IVF for now and recheck in afternoon Acute on chronic diastolic CHF: - BID lasix held due to BITA - Hold spironolactone Recent dialysis due to cardiorenal syndrome and improved in August 2017, now off dialysis: Possible Subacute focal seizure, resolved: - EEG negative and no signs of seizure today - No seizure and neurology took off anti-seizure meds Tobacco dependence: - replacement Hx of diet controlled DM: DVT prophylaxis: Heparin drip Interval History HPI Alert today. Did have rapid response yesterday and now is wanting to undergo cardiac cath. Kidney function worsened due to hypotension yesterday. Discussed with interventional cardiology and will await kidney improvement prior to cath. Troponin again trended downward. No active pains or SOB. Review of Systems Review of Systems Constitutional: Positive for fatigue. Respiratory: Negative for shortness of breath. Cardiovascular: Negative for chest pain and palpitations. Gastrointestinal: Negative for abdominal pain. Genitourinary: Negative for difficulty urinating. Musculoskeletal: Positive for gait problem. Skin: Negative for pallor. Allergic/Immunologic: Negative for immunocompromised state. Neurological: Negative for tremors, seizures and weakness. Hematological: Does not bruise/bleed easily. Psychiatric/Behavioral: Negative for confusion. Physical Exam Vital Signs: Temp: 97.5 F (36.4 C) | BP: 89/51 | Pulse: 48 | Resp: 16 | Pain Ratin (out of 10) | Weight: 76.3 kg (168 lb 3.4 oz) | O2 Device: NC - no humidity O2 Flow Rate (L/min): 3 l/min | SpO2: 98 % Maximum Temperatures (last 24 hours) Temperature Maximum Max Temp 98.2 F (36.8 C) Intake and Output: 01/19 0700 - 01/20 0659 In: 1463 [Oral:710] Out: - Physical Exam Constitutional: She is oriented to person, place, and time. She appears well- nourished. HENT: Head: Atraumatic. Eyes: EOM are normal. Cardiovascular: Normal rate and regular rhythm. Pulmonary/Chest: No stridor. No respiratory distress. She has rales. Abdominal: There is no tenderness. Musculoskeletal: She exhibits edema. Neurological: She is alert and oriented to person, place, and time. No cranial nerve deficit. Skin: Skin is warm and dry. Psychiatric: She has a normal mood and affect. Labs Labs (Last day) 01/20/18 0541 - 01/19/18 1702 CARDIAC MARKERS 01/20/18 0541 01/19/18 1702 CARDIAC MARKERS Troponin I 0.000-0.028 (ng/mL) 2.182 2.113 01/20/18 0541 - 01/20/18 0541 CHEMISTRY 01/20/18 0541 01/20/18 0541 CHEMISTRY Glucose 70-100 (mg/dL) 104 Sodium 135-145 (meq/L) 137 Potassium 3.5-5.3 (meq/L) 3.7 Chloride 99-110 (meq/L) 100 CO2 20-29 (meq/L) 25 Anion Gap with K 6-20 (meq/L) 16 BUN 6-22 (mg/dL) 50 Creatinine 0.60-1.10 (mg/dL) 1.90 BUN/Creatinine Ratio 10.0-25.0 26.3 Calcium 8.5-10.5 (mg/dL) 8.3 Corrected Calcium 8.5-10.5 (mg/dL) 9.2 Phosphorus 2.5-4.5 (mg/dL) 4.9 Magnesium 1.8-2.4 (mg/dL) 2.2 Albumin 3.5-5.0 (g/dL) 2.9 eGFR >=60 (mL/min/1.73m2) 31 eGFR Non- >=60 (mL/min/1.73m2) 26 01/19/18 1642 - 01/19/18 1642 ECG/EKG 01/19/18 1642 ECG/EKG EKG WAVEFORM Sinus bradycardia with marked sinus arrythmia: ST & T wave abnormality, consider inferior ischemia: ST & T wave abnormality, consider anterolateral ischemia: Abnormal ECG: When compared with ECG of 17-JAN-2018 18:41,: Inverted T waves have replaced nonspecific T wave abnormality in Inferior leads: T wave inversion now evident in Anterior leads: QThas shortened Ventricular Rate: 55 BPM Atrial Rate: 55 BPM P-R Interval: 150 ms QRS Duration: 96 ms Q-T Interval: 398 ms QTC Calculation(Bazett): 380 ms Calculated P [place]: -7 degrees Calculated R [place]: 31 degrees Calculated T [place]: -108 degrees 01/19/18 2344 - 01/19/18 1553 GENERAL COAGULATION 01/19/18 2344 01/19/18 1702 01/19/18 1553 GENERAL COAGULATION APTT 24-35 (secs) 59 68 >150 01/20/18 0738 - 01/19/18 1151 GLUCOSE POINT OF CARE 01/20/18 0738 01/19/18 2109 01/19/18 1151 GLUCOSE POINT OF CARE Glucose POC 70-100 (mg/dL) 84 179 139 01/20/18 0541 - 01/20/18 0541 OTHER 01/20/18 0541 OTHER Age (Years) 77 Medical Decision making Medical Decision Making Total time spent in care of this patient 35 minutes with greater than 50 percent of the time spent in counseling and coordination of care as described above alongside reviewing chart, discussing with nursing, phone calls, reviewing labs, and imaging. Aurelio Flanagan DO - 01/19/2018 2:54 PM CDTFormatting of this note may be different from the original. DAILY PROGRESS NOTE Regi Guzman is a 77yr old female admitted on 01/17/2018 5:11 PM. Impression / Plan Nstemi with SOB and chest pain: PVD: Regional wall motion abnormality on echo, troponin plateau at 7. - Imdur, Lipitor, Toprol XL, Asprin, Brilinta given - Heparin drip 48 hours complete tonight - Regi does not want cardiac cath at this time. She opts for medical management. Will not be able to have Brilinta due to qureshi and switch to Plavix tomorrow. - PT/OT Possible Subacute focal seizure, resolved: - EEG negative and no signs of seizure today - No seizure and neurology took off anti-seizure meds Acute on chronic diastolic CHF: - BID lasix - Hold spironolactone CKD III: Recent dialysis due to cardiorenal syndrome and improved in August 2017, now off dialysis: Tobacco dependence: - replacement Hx of diet controlled DM: DVT prophylaxis: Heparin drip Interval History HPI Awake and not sleepy today. Daughter at bedside. Discussed multiple options and patient wishes to do medical management. She does not want to risk kidneys or complications at this time. I have asked her to try and move around today and see how she feels. She does want to go home and not SNF. Review of Systems Review of Systems Constitutional: Positive for fatigue. Respiratory: Negative for shortness of breath. Cardiovascular: Negative for chest pain and palpitations. Gastrointestinal: Negative for abdominal pain. Genitourinary: Negative for difficulty urinating. Musculoskeletal: Positive for gait problem. Skin: Negative for pallor. Allergic/Immunologic: Negative for immunocompromised state. Neurological: Negative for tremors, seizures and weakness. Hematological: Does not bruise/bleed easily. Psychiatric/Behavioral: Negative for confusion. Physical Exam Vital Signs: Temp: 97.6 F (36.4 C) | BP: 95/62 | Pulse: 76 | Resp: 16 | Pain Ratin (out of 10) | Weight: 79.8 kg (175 lb 14.8 oz) | O2 Device: NC - no humidity O2 Flow Rate (L/min): 3 l/min | SpO2: 97 % Maximum Temperatures (last 24 hours) Temperature Maximum Max Temp 98.1 F (36.7 C) Intake and Output: 01/18 0700 - 01/19 0659 In: 240 [Oral:240] Out: 2100 [Urine:2100] Physical Exam Constitutional: She is oriented to person, place, and time. She appears well- nourished. HENT: Head: Atraumatic. Eyes: EOM are normal. Cardiovascular: Normal rate and regular rhythm. Pulmonary/Chest: No stridor. No respiratory distress. She has rales. Abdominal: There is no tenderness. Musculoskeletal: She exhibits edema. Neurological: She is alert and oriented to person, place, and time. No cranial nerve deficit. Skin: Skin is warm and dry. Psychiatric: She has a normal mood and affect. Labs Labs (Last day) 01/19/18 0504 - 01/19/18 0504 CHEMISTRY 01/19/18 0504 01/19/18 0504 CHEMISTRY Glucose 70-100 (mg/dL) 80 Sodium 135-145 (meq/L) 139 Potassium 3.5-5.3 (meq/L) 3.3 Chloride 99-110 (meq/L) 100 CO2 20-29 (meq/L) 28 Anion Gap with K 6-20 (meq/L) 14 BUN 6-22 (mg/dL) 33 Creatinine 0.60-1.10 (mg/dL) 1.09 BUN/Creatinine Ratio 10.0-25.0 30.3 Calcium 8.5-10.5 (mg/dL) 8.7 Corrected Calcium 8.5-10.5 (mg/dL) 9.4 Phosphorus 2.5-4.5 (mg/dL) 3.8 Magnesium 1.8-2.4 (mg/dL) 2.2 Albumin 3.5-5.0 (g/dL) 3.1 eGFR >=60 (mL/min/1.73m2) 59 eGFR Non- >=60 (mL/min/1.73m2) 49 01/19/18 0819 - 01/18/182010 GENERAL COAGULATION 01/19/18 0819 01/19/18 0504 01/19/18 0217 01/18/182010 GENERAL COAGULATION APTT 24-35 (secs) 79 101 111 113 01/19/18 1151 - 01/18/18 2204 GLUCOSE POINT OF CARE 01/19/18 1151 01/18/18 220 GLUCOSE POINT OF CARE Glucose POC 70-100 (mg/dL) 139 147 01/19/18 0504 - 01/19/18 0504 OTHER 01/19/18 0504 OTHER Age (Years) 77 Medical Decision making Medical Decision Making Total time spent in care of this patient 35 minutes with greater than 50 percent of the time spent in counseling and coordination of care as described above alongside reviewing chart, discussing with nursing, phone calls, reviewing labs, and imaging. Laura Abreu APRN-ORCHESTRATOR - 01/19/2018 1:40 PM CDTFormatting of this note may be different from the original. NEUROLOGY DAILY PROGRESS NOTE Regi Guzman is a 77yr old female admitted on 01/17/2018. SUBJECTIVE No further abnormal arm movements. OBJECTIVE Current Vital Signs Temp: 97.6 F (36.4 C) BP: 95/62 Pulse: 76 O2 Device: NC - no humidity O2 Flow Rate (L/min): 3 l/min Resp: 16 Pain Ratin (out of 10) Weight: 79.8 kg (175 lb 14.8 oz) SpO2: 97 % Vitals Min/Max Last 24 Hours Vital Signs Min/Max (last 24 hours) Flowsheet Row Name Min Max Temp 97.6 F (36.4 C) 98.1 F (36.7 C) BP: Systolic 70 166 BP: Diastolic 43 65 Pulse 53 76 Resp 16 18 SpO2 94 % 100 % O2 Flow Rate (L/min) 3 l/min 4 l/min MAP (mm Hg) 66 mm Hg 66 mm Hg Medications Current Facility-Administered Medications Medication Dose Route Frequency ticagrelor (BRILINTA) tablet 90 mg 90 mg Oral 2 times a day [START ON 01/20/2018] clopidogrel (PLAVIX) tablet 75 mg 75 mg Oral Daily metoprolol tartrate (LOPRESSOR) tablet 12.5 mg 12.5 mg Oral 2 times a day [START ON 01/20/2018] metoprolol succinate (TOPROL XL) SR tablet (24 hr) 12.5 mg 12.5 mg Oral Daily dextrose 50% IV solution 50 mL 25 g IV PRN per parameter glucagon for injection 1 mg vial 1 mg 1 mg Intramuscular PRN per parameter dextrose chewable tablet 16 g 4 tablet Oral PRN per parameter Or carbohydrate 15 g 15 g Oral PRN per parameter aspirin chewable tablet 81 mg 81 mg Oral Daily acetaminophen (TYLENOL) tablet 650 mg 650 mg Oral Every 4 hours prn ondansetron (ZOFRAN) injection solution 4 mg 4 mg IV Every 4 hours prn atorvaSTATin (LIPITOR) tablet 40 mg 40 mg Oral at bedtime HYDROcodone-acetaminophen (NORCO) 10-325 mg tablet 1 tablet 1 tablet Oral 3 times a day isosorbide mononitrate (IMDUR) SR tablet (24 hr) 60 mg 60 mg Oral Daily levothyroxine tablet 125 mcg 125 mcg Oral 1 time a day before breakfast nitroglycerin (NITROSTAT) sublingual tablet 0.4 mg 0.4 mg Sublingual Every 5 minutes prn pramipexole (MIRAPEX) tablet 1.5 mg 1.5 mg Oral at bedtime sertraline (ZOLOFT) tablet 25 mg 25 mg Oral daily heparin (porcine) (5000 units/1 mL) IV dose 5,700 Units 70 Units/kg IV PRN per parameter heparin (porcine) (5000 units/1 mL) IV dose 5,700 Units 70 Units/kg IV Now LORazepam (ATIVAN) 2 mg/mL injection solution 2 mg 2 mg IV Every 2 hours prn hEParin (50 units/mL) in D5W premixed IV solution (STANDARD-weight based) 0 -50 Units/kg/hr IV Titrate heparin (porcine) (5000 units/1 mL) IV dose 2,800 Units 35 Units/kg IV PRN per parameter Or heparin (porcine) (5000 units/1 mL) IV dose 5,700 Units 70 Units/kg IV PRN per parameter ticagrelor (BRILINTA) tablet 180 mg 180 mg Oral 1 time furosemide (LASIX) injection solution 40 mg 40 mg IV 2 times a day diuretic Physical Exam Full neurological examination not performed as time was spent discussing test results and treatment plan. Alert. Oriented to conversation. Speech fluent, clear. Visually tracks examiner with full EOM. Face symmetric. Moving all extremities equally, purposefully. No abnormal movements. Diagnostics and Labs Relevant diagnostic, laboratory and radiological studies have been reviewed in the Electronic Medical Record. MRI Brain 01/18/18: No acute abnormality or structural lesion. EEG 01/19/18: "EEG Interpretation: This EEG is abnormal due to the presence of: 1) Mild generalized slowing. - This is a non-specific finding but is consistent with a generalized disturbance of cerebral function. It may be seen in a variety of conditions, such as toxic, metabolic, post-anoxic, multi-focal or diffuse structural abnormalities. - No electrographic seizures or non-convulsive status epilepticus were seen during this recording." ASSESSMENT & PLAN Abnormal movement RUE, tremor vs seizure. -MRI Brain shows no structural lesion or seizure focus. -EEG shows no epileptiform focus. -Not clear that movements are epileptic in nature. -At this time, do not recommend anti-seizure medication. Case was discussed with Dr. Jerman Aponte who agrees with above impression and plan. Total time spent: >15 minutes, with >50% spent reviewing the chart, counseling patient and family, and discussing test results and treatment plan with the patient and family. Laura Abreu APRN-ORCHESTRATOR, 01/19/2018 Neurology Consult Service [facility] [place], Ranjan Olmedo MD - 01/19/2018 9:38 AM CDTFormatting of this note may be different from the original. Assessment and Plan: 1. NSTEMI 2. CKD stage III 3. Encephalopathy,resovled 4. PAD 5. T2DM 6. HLD We discussed further investigation of NSTEMI with angiogram with patient. She was able to express capacity for medical decisions. She did not want to pursue further invasive testing such as an angiogram at this time. Continue with medical management of NSTEMI. If patient changes her decision and wantsto pursue angiogram please notify us. Plan: -continue with medical management heparin, brillinta, asa, statin, metoprolol. Patient was seen and discussed with Dr. Jordan. Ranjan Mcdaniels MD Internal Medicine PGY-1 Pager [phone] Subjective: Patient confusion has resovled. No arrhythmia overnight. No further chest pain or discomfort. Patient is feeling improved and wants to go home. Ros: 4 system ROS: Cardiac, Resp, GI, and General are negative unless noted above in HPI. Objective: Current Vital Signs Temp: 97.6 F (36.4 C) BP: 166/56 Pulse: 72 O2 Device: NC - no humidity O2 Flow Rate (L/min): 4 l/min Resp: 16 Pain Ratin (out of 10) Weight: 79.8 kg (175 lb 14.8 oz) SpO2: 94 % Exam: Gen: NAD, comfortable in bed Resp: normal vesicular breath sounds without accessory muscle use Cardiac: S1/S1 no murmur Abd: soft non-tender Extremities: 1+edema, pulses 1+ bilaterally Neuro: non focal neurologic, AOx4 Associated attestation - Ashlie Jordan MD - 01/19/2018 9:50 AM CDTPatient seen and examined with resident,agree with above.Aurelio Flanagan DO - 01/18/2018 1:50 PM CDTFormatting of this note may be different from the original. DAILY PROGRESS NOTE Regi Guzman is a 77yr old female admitted on 01/17/2018 5:11 PM. Impression / Plan Nstemi with SOB and chest pain: PVD: Regional wall motion abnormality on echo, troponin plateau at 7. - Imdur, Lipitor, Asprin, Brilinta given - Heparin drip and cardiology following. 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 - will discuss with daughter when arrives as patient is currently unable to discuss care with ativanfor possible seizure as well Possible Subacute focal seizure: - Neurology following - received multiple ativan doses with of arm movements. She has been having similar over last 2 months without discussing with a physician. - EEG, MRI - Valproic acid started Acute on chronic diastolic CHF: - BID lasix - Hold spironolactone CKD III: Recent dialysis due to cardiorenal syndrome and improved in August 2017, now off dialysis: Tobacco dependence: - replacement Hx of diet controlled DM: DVT prophylaxis: Heparin drip Interval History HPI Groggy from ativan and illness. Does have some minimal left chest pain still. Troponin trends downward. Cardiology unsure of how she would tolerated aggressive intervention. Review of Systems Review of Systems Constitutional: Positive for fatigue. Respiratory: Positive for shortness of breath. Cardiovascular: Positive for chest pain. Negative for palpitations. Gastrointestinal: Negative for abdominal pain. Genitourinary: Argueta in place Musculoskeletal: Positive for gait problem. Skin: Negative for pallor. Allergic/Immunologic: Negative for immunocompromised state. Neurological: Positive for tremors, seizures and weakness. Hematological: Does not bruise/bleed easily. Psychiatric/Behavioral: Positive for confusion. Physical Exam Vital Signs: Temp: 97.9 F (36.6 C) | BP: 111/69 | Pulse: 109 | Resp: 16 | Pain Ratin (out of10) | Weight: 80.9 kg (178 lb 4.8 oz) | O2 Device: NC - no humidity O2 Flow Rate (L/min): 3.5 l/min | SpO2: 100 % Maximum Temperatures (last 24 hours) Temperature Maximum Max Temp 98 F (36.7 C) Intake and Output: 01/17 0700 - 01/18 0659 In: 385 [Oral:360] Out: 1200 [Urine:1200] Physical Exam Constitutional: She appears well-nourished. She appears distressed. HENT: Head: Atraumatic. Eyes: EOM are normal. Cardiovascular: Normal rate and regular rhythm. Pulmonary/Chest: No stridor. No respiratory distress. She has rales. Abdominal: There is no tenderness. Musculoskeletal: She exhibits edema. Neurological: drowsy Skin: Skin is warm and dry. Psychiatric: She has a normal mood and affect. Labs Labs (Last day) 01/18/18 0839 - 01/17/18 1824 CARDIAC MARKERS 01/18/18 0839 01/18/18 0500 01/17/18 1824 01/17/18 1824 CARDIAC MARKERS Troponin I 0.000-0.028 (ng/mL) 5.167 7.470 4.593 BNP 0-100 (pg/mL) 2886 01/18/18 0500 - 01/17/18 1824 CBC 01/18/18 0500 01/17/18 1824 CBC WBC 4.0-11.0 (K/uL) 8.8 10.8 RBC 3.80-5.30 (M/uL) 3.96 4.01 Hemoglobin 11.5-15.8 (g/dL) 13.1 13.7 Hematocrit 35.0-45.0 (%) 39.2 39.2 MCV 80.0-98.0 (fL) 99.0 97.8 MCH 25.5-34.0 (pg) 33.1 34.2 MCHC 31.5-36.5 (g/dL) 33.4 34.9 RDW-CV 11.5-15.5 (%) 12.7 12.5 RDW-SD 35.5-50.0 (fl) 46.2 45.1 Platelet Count 140-400 (K/uL) 189 209 MPV 8.5-12.0 (fL) 9.3 9.1 01/18/18 0500 - 01/17/18 182 CHEMISTRY 01/18/18 0500 01/18/18 0500 01/17/18 [id number]/181823 CHEMISTRY Glucose 70-100 (mg/dL) 94 125 Sodium 135-145 (meq/L) 139 138 Potassium 3.5-5.3 (meq/L) 3.4 4.3 Chloride 99-110 (meq/L) 99 98 CO2 20-29 (meq/L) 30 29 Anion Gap with K 6-20 (meq/L) 13 15 BUN 6-22 (mg/dL) 31 30 Creatinine 0.60-1.10 (mg/dL) 1.14 1.18 BUN/Creatinine Ratio 10.0-25.0 27.2 25.4 Calcium 8.5-10.5 (mg/dL) 8.8 9.1 Corrected Calcium 8.5-10.5 (mg/dL) 9.5 Magnesium 1.8-2.4 (mg/dL) 2.2 2.2 Bilirubin Total 0.2-1.2 (mg/dL) 0.6 Alkaline Phosphatase 30-150 (U/L) 117 ALT - SGPT 0-55 (U/L) 33 AST - SGOT 0-35 (U/L) 54 Protein Total 6.0-8.2 (g/dL) 6.8 Albumin 3.5-5.0 (g/dL) 3.5 eGFR >=60 (mL/min/1.73m2) 56 54 eGFR Non- >=60 (mL/min/1.73m2) 46 45 01/18/18 0500 - 01/17/18 1824 DIFFERENTIAL 01/18/18 0500 01/17/18 182 DIFFERENTIAL Seg Neut Absolute 1.8-8.0 (K/uL) 6.2 8.8 Lymphocytes Absolute 0.8-4.1 (K/uL) 1.8 1.5 Monocytes Absolute 0.0-1.0 (K/uL) 0.6 0.6 Eosinophils Absolute 0.0-0.7 (K/uL) 0.1 0.0 Basophil Absolute 0.0-0.2 (K/uL) 0.1 0.0 Immature Granulocyte Absolute 0.00-0.06 (K/uL) 0.08 0.09 Neutrophils Abs. (Segs and Bands) (/uL) 6200 8800 Neutrophils Percent (%) 71.1 81.3 Lymphocytes Percent (%) 20.8 13.4 Monocytes Percent (%) 6.5 5.1 Immature Granulocyte Percent (%) 0.9 0.8 Eosinophils Percent (%) 1.0 0.0 Basophil Percent (%) 0.6 0.2 01/17/18 1841 - 01/17/18 1841 ECG/EKG 01/17/18 184 ECG/EKG EKG WAVEFORM Normal sinus rhythm: LVH with repolarization abnormality: Abnormal ECG: When compared with ECG of 05-JUL-2017 12:08,: Nonspecific T wave abnormality now evident in Inferior leads: Nonspecific T wave abnormality now evident in Anterior leads: No significant change from previous tracing Ventricular Rate: 77 BPM Atrial Rate: 77 BPM P-R Interval: 166 ms QRS Duration: 92 ms Q-T Interval: 400 ms QTC Calculation(Bazett): 452 ms Calculated P [place]: -11 degrees Calculated R [place]: 31 degrees Calculated T [place]: 118 degrees 01/18/18 0656 - 01/17/18 1824 GENERAL COAGULATION 01/18/18 0656 01/18/18 0500 01/17/18 1824 01/17/18 1824 GENERAL COAGULATION Protime 12.0-14.5 (secs) 13.9 INR 2.0-3.5 1.1 APTT 24-35 (secs) 110 >150 32 01/17/18 1807 - 01/17/18 1807 GLUCOSE POINT OF CARE 01/17/18 1807 GLUCOSE POINT OF CARE Glucose POC 70-100 (mg/dL) 134 01/18/18 0500 - 01/17/18 1824 OTHER 01/18/18 0500 01/17/18 1824 OTHER [age] (Years) [age] Medical Decision making Medical Decision Making Total time spent in care of this patient 35 minutes with greater than 50 percent of the time spent in counseling and coordination of care as described above alongside reviewing chart, discussing with nursing, phone calls, reviewing labs, and imaging. in this encounter Plan of Treatment Date Type Specialty Care Team Description 03/03/2018 Office Visit Nephrology Wilbert Gale MD [address] [place] [address] [phone] Name Priority Associated Diagnoses Order Schedule BASIC METABOLIC PANEL WITH Routine Once for 1 Occurrences GFR starting 02/24/2018 until 02/24/2018 Health Maintenance Due Date Last Done Comments Annual Lung Screen 1996 DEXA/Heel Scan 2006 Ophthalmology Exam 05/25/2017 05/25/2016 (Previously completed), 05/25/2016, 03/26/2015, Additional history exists Microalbumin 12/20/2017 12/20/2016, 02/07/2015 Complete Peg Scale 01/25/2018 07/28/2017, 07/28/2017 (Previously completed) Query State Prescription 01/25/2018 07/28/2017 (Previously Drug Monitoring Program completed), 09/28/2016 (PDMP) Zoster Vaccine (1 of 2 - 03/18/2018 Postponed from [facility], [facility]) 1991 (Insurance / Financial) Hemoglobin A1C Every 6 06/09/2018 12/07/2017, 09/27/2017, Months 05/12/2017, Additional history exists Diabetic Foot Exam 06/23/2018 06/23/2017, 08/11/2015, 08/09/2013 Order Compliance Drug 07/06/2018 07/06/2017, 12/20/2016 Screen Lipid Screening 01/24/2019 01/24/2018, 06/23/2017, 11/11/2015, Additional history exists Tetanus Vaccine 02/11/2021 02/11/2011 Influenza Vaccine Completed 06/23/2017, 09/23/2016, 08/11/2015, Additional history exists Pneumococcal 65yr+ High Completed 08/01/2017, 06/10/2015, Risk(Category 2,3) 09/26/2008, Additional history exists as of this encounter Implants Implanted Type Area Sr. Media Manager Device Expiration Model / Identifier Date Serial / Lot Graft Flixene [id number] [id number] N [id number] - [id number] Right: GETINGE CASTLE 01/19/2020 [id number] / Implanted: Qty: 1 on 07/26/2017 by Korey Riley MD [facility] [id number] / as of this encounter Procedures Procedure Name Priority Date/Time Associated Comments Diagnosis GLUCOSE BY METER, Routine 01/27/2018 7:32 Results for this POCT AM CDT procedure are in the results section. GLUCOSE BY METER, Routine 01/26/2018 8:49 Results for this POCT PM CDT procedure are in the results section. COMPLETE BLOOD COUNT Routine 01/26/2018 9:29 Results for this WITHOUT DIFFERENTIAL AM CDT procedure are in the results section. TROPONIN I Routine 01/26/2018 9:29 Results for this AM CDT procedure are in the results section. BASIC METABOLIC PANEL Routine 01/26/2018 9:29 Results for this AM CDT procedure are in the results section. GLUCOSE BY METER, Routine 01/25/2018 9:10 Results for this POCT PM CDT procedure are in the results section. GLUCOSE BY METER, Routine 01/25/2018 4:58 Results for this POCT PM CDT procedure are in the results section. GLUCOSE BY METER, Routine 01/25/2018 11:20 Results for this POCT AM CDT procedure are in the results section. GLUCOSE BY METER, Routine 01/25/2018 7:51 Results for this POCT AM CDT procedure are in the results section. GLUCOSE BY METER, Routine 01/24/2018 9:52 Results for this POCT PM CDT procedure are in the results section. GLUCOSE BY METER, Routine 01/24/2018 11:50 Results for this POCT AM CDT procedure are in the results section. LAB ONLY-COMPLETE Routine 01/24/2018 8:18 Results for this BLOOD COUNT WITH AM CDT procedure are in DIFFERENTIAL the results section. COMPLETE BLOOD COUNT Routine 01/24/2018 8:18 Results for this WITH DIFFERENTIAL AM CDT procedure are in the results section. GLUCOSE BY METER, Routine 01/24/2018 8:11 Results for this POCT AM CDT procedure are in the results section. LIPID PANEL Routine 01/24/2018 7:15 Results for this AM CDT procedure are in the results section. HEPATIC FUNCTION Routine 01/24/2018 7:15 Results for this PANEL AM CDT procedure are in the results section. BASIC METABOLIC PANEL Routine 01/24/2018 7:15 Results for this AM CDT procedure are in the results section. GLUCOSE BY METER, Routine 01/23/2018 9:05 Results for this POCT PM CDT procedure are in the results section. ACTIVATED CLOTTING Routine 01/23/2018 2:44 Results for this TIME POCT PM CDT procedure are in the results section. BLOOD GASES ARTERIAL Timed Routine 01/23/2018 12:50 Results for this PM CDT procedure are in the results section. BLOOD GASES ARTERIAL STAT 01/23/2018 9:01 Results for this WITH IONIZED CALCIUM AM CDT procedure are in AND LACTIC ACID the results section. MAGNESIUM Routine 01/23/2018 5:50 Results for this AM CDT procedure are in the results section. RENAL FUNCTION PANEL Routine 01/23/2018 5:50 Results for this AM CDT procedure are in the results section. COMPREHENSIVE STAT 01/23/2018 5:50 Results for this METABOLIC PANEL AM CDT procedure are in the results section. GLUCOSE BY METER, Routine 01/22/2018 9:12 Results for this POCT PM CDT procedure are in the results section. GLUCOSE BY METER, Routine 01/22/2018 5:26 Results for this POCT PM CDT procedure are in the results section. GLUCOSE BY METER, Routine 01/22/2018 12:19 Results for this POCT PM CDT procedure are in the results section. GLUCOSE BY METER, Routine 01/22/2018 8:46 Results for this POCT AM CDT procedure are in the results section. COMPLETE BLOOD COUNT Routine 01/22/2018 5:38 Results for this WITHOUT DIFFERENTIAL AM CDT procedure are in the results section. MAGNESIUM Routine 01/22/2018 5:38 Results for this AM CDT procedure are in the results section. RENAL FUNCTION PANEL Routine 01/22/2018 5:38 Results for this AM CDT procedure are in the results section. LAB ONLY-URINE Routine 01/21/2018 10:55 Results for this MICROSCOPIC REFLEX PM CDT procedure are in the results section. URINE DIP, REFLEX TO Routine 01/21/2018 10:55 Results for this MICROSCOPIC, REFLEX PM CDT procedure are in TO CULTURE the results section. GLUCOSE BY METER, Routine 01/21/2018 9:31 Results for this POCT PM CDT procedure are in the results section. GLUCOSE BY METER, Routine 01/21/2018 11:54 Results for this POCT AM CDT procedure are in the results section. LAB ONLY-COMPLETE Timed Routine 01/21/2018 10:20 Results for this BLOOD COUNT WITH AM CDT procedure are in DIFFERENTIAL the results section. COMPLETE BLOOD COUNT Timed Routine 01/21/2018 10:20 Results for this WITH DIFFERENTIAL AM CDT procedure are in the results section. GLUCOSE BY METER, Routine 01/21/2018 7:50 Results for this POCT AM CDT procedure are in the results section. COLLECT AND HOLD Routine 01/21/2018 6:37 Results for this LAVENDER (EDTA) TOP AM CDT procedure are in TUBE the results section. PTT Timed Routine 01/21/2018 6:37 Results for this AM CDT procedure are in the results section. COMPLETE BLOOD COUNT Routine 01/21/2018 6:37 Results for this WITHOUT DIFFERENTIAL AM CDT procedure are in the results section. RENAL FUNCTION PANEL Routine 01/21/2018 6:37 Results for this AM CDT procedure are in the results section. PTT Timed Routine 01/20/2018 7:35 Results for this PM CDT procedure are in the results section. GLUCOSE BY METER, Routine 01/20/2018 6:00 Results for this POCT PM CDT procedure are in the results section. [id number] SINGLE Routine 01/20/2018 12:20 Results for this PHARMGX TEST (1 GENE) PM CDT procedure are in the results section. PTT Timed Routine 01/20/2018 12:20 Results for this PM CDT procedure are in the results section. RENAL FUNCTION PANEL Routine 01/20/2018 12:20 Results for this PM CDT procedure are in the results section. GLUCOSE BY METER, Routine 01/20/2018 11:33 Results for this POCT AM CDT procedure are in the results section. PTT Timed Routine 01/20/2018 11:30 Results for this AM CDT procedure are in the results section. GLUCOSE BY METER, Routine 01/20/2018 7:38 Results for this POCT AM CDT procedure are in the results section. TROPONIN I Routine 01/20/2018 5:41 Results for this AM CDT procedure are in the results section. MAGNESIUM Routine 01/20/2018 5:41 Results for this AM CDT procedure are in the results section. RENAL FUNCTION PANEL Routine 01/20/2018 5:41 Results for this AM CDT procedure are in the results section. PTT Timed Routine 01/19/2018 11:44 Results for this PM CDT procedure are in the results section. GLUCOSE BY METER, Routine 01/19/2018 9:09 Results for this POCT PM CDT procedure are in the results section. PTT STAT 01/19/2018 5:02 Results for this PM CDT procedure are in the results section. TROPONIN I STAT 01/19/2018 5:02 Results for this PM CDT procedure are in the results section. PTT Routine 01/19/2018 3:53 Results for this PM CDT procedure are in the results section. GLUCOSE BY METER, Routine 01/19/2018 11:51 Results for this POCT AM CDT procedure are in the results section. PTT Timed Routine 01/19/2018 8:19 Results for this AM CDT procedure are in the results section. PTT Timed Routine 01/19/2018 5:04 Results for this AM CDT procedure are in the results section. MAGNESIUM Routine 01/19/2018 5:04 Results for this AM CDT procedure are in the results section. RENAL FUNCTION PANEL Routine 01/19/2018 5:04 Results for this AM CDT procedure are in the results section. PTT Timed Routine 01/19/2018 2:17 Results for this AM CDT procedure are in the results section. GLUCOSE BY METER, Routine 01/18/2018 10:04 Results for this POCT PM CDT procedure are in the results section. PTT Timed Routine 01/18/2018 8:11 Results for this PM CDT procedure are in the results section. PTT Routine 01/18/2018 2:02 Results for this PM CDT procedure are in the results section. TROPONIN I Routine 01/18/2018 8:39 Results for this AM CDT procedure are in the results section. PTT STAT 01/18/2018 6:56 Results for this AM CDT procedure are in the results section. LAB ONLY-COMPLETE Routine 01/18/2018 5:00 Results for this BLOOD COUNT WITH AM CDT procedure are in DIFFERENTIAL the results section. COLLECT AND HOLD BLUE Routine 01/18/2018 5:00 Results for this (NACIT) TOP TUBE AM CDT procedure are in the results section. PTT STAT 01/18/2018 5:00 Results for this AM CDT procedure are in the results section. TROPONIN I Routine 01/18/2018 5:00 Results for this AM CDT procedure are in the results section. MAGNESIUM Routine 01/18/2018 5:00 Results for this AM CDT procedure are in the results section. BASIC METABOLIC PANEL Routine 01/18/2018 5:00 Results for this AM CDT procedure are in the results section. COMPLETE BLOOD COUNT Routine 01/18/2018 5:00 Results for this WITH DIFFERENTIAL AM CDT procedure are in the results section. LAB ONLY-COMPLETE STAT 01/17/2018 6:24 Results for this BLOOD COUNT WITH PM CDT procedure are in DIFFERENTIAL the results section. PTT GUSTAVO 01/17/2018 6:24 Results for this PM CDT procedure are in the results section. PROTIME/INR STAT 01/17/2018 6:24 Results for this PM CDT procedure are in the results section. TROPONIN I Routine 01/17/2018 6:24 Results for this PM CDT procedure are in the results section. MAGNESIUM STAT 01/17/2018 6:24 Results for this PM CDT procedure are in the results section. COMPREHENSIVE STAT 01/17/2018 6:24 Results for this METABOLIC PANEL PM CDT procedure are in the results section. COMPLETE BLOOD COUNT STAT 01/17/2018 6:24 Results for this WITH DIFFERENTIAL PM CDT procedure are in the results section. BRAIN NATRIURETIC STAT 01/17/2018 6:24 Results for this PEPTIDE PM CDT procedure are in the results section. GLUCOSE BY METER, Routine 01/17/2018 6:07 Results for this POCT PM CDT procedure are in the results section. in this encounter Results GLUCOSE BY METER, POCT (01/27/2018 7:32 AM) Component Value Ref Range Glucose POC 104 (H) 70 - 100 mg/dL Specimen Performing Laboratory Blood [facility] POINT OF CARE TESTING [address] [place] [address], [place] [address] GLUCOSE BY METER, POCT (01/26/2018 8:49 PM) Component Value Ref Range Glucose POC 180 (H) 70 - 100 mg/dL Specimen Performing Laboratory Blood [facility] POINT OF CARE TESTING [address] [place] [address], [place] [address] COMPLETE BLOOD COUNT WITHOUT DIFFERENTIAL (01/26/2018 9:29 AM) Component Value Ref Range WBC 9.2 4.0 - 11.0 K/uL RBC 3.59 (L) 3.80 - 5.30 M/uL Hemoglobin 12.1 11.5 - 15.8 g/dL Hematocrit 34.9 (L) 35.0 - 45.0 % MCV 97.2 80.0 - 98.0 fL MCH 33.7 25.5 - 34.0 pg MCHC 34.7 31.5 - 36.5 g/dL RDW-CV 13.0 11.5 - 15.5 % RDW-SD 46.3 35.5 - 50.0 fl Platelet Count 234 140 - 400 K/uL MPV 8.9 8.5 - 12.0 fL Specimen Performing Laboratory Blood [address] [address] BASIC METABOLIC PANEL (01/26/2018 9:29 AM) Component Value Ref Range Glucose 233 (H) 70 - 100 mg/dL BUN 37 (H) 6 - 22 mg/dL Creatinine 1.26 (H) 0.60 - 1.10 mg/dL BUN/Creatinine Ratio 29.4 (H) 10.0 - 25.0 Sodium 140 135 - 145 meq/L Potassium 3.6 3.5 - 5.3 meq/L Chloride 99 99 - 110 meq/L CO2 29 20 - 29 meq/L Anion Gap with K 16 6 - 20 meq/L Calcium 9.3 8.5 - 10.5 mg/dL Age 77 Years eGFR Non- 41 (L) >=60 mL/min/1.73m2 eGFR 50 (L) >=60 mL/min/1.73m2 Specimen Performing Laboratory Blood [facility] [address] [facility] [address] [place] [address] TROPONIN I (01/26/2018 9:29 AM) Component Value Ref Range Troponin I 0.255 (H) 0.000 - 0.028 ng/mL Specimen Performing Laboratory Blood [facility] [address] [facility] [address] [place] [address] EKG 12 LEAD (01/26/2018 2:31 AM)Only the most recent of8 resultswithin the time period is included. Component Value Ref Range EKG WAVEFORM Normal sinus rhythm: Possible Left atrial enlargement: LVH with repolarization abnormality: Abnormal ECG Ventricular Rate: 63 BPM Atrial Rate: 63 BPM P-R Interval: 170 ms QRS Duration: 100 ms Q-T Interval: 426 ms QTC Calculation(Bazett): 435 ms Calculated P [place]: 75 degrees Calculated R [place]: 66 degrees Calculated T [place]: -98 degrees GLUCOSE BY METER, POCT (01/25/2018 9:10 PM) Component Value Ref Range Glucose POC 119 (H) 70 - 100 mg/dL Specimen Performing Laboratory Blood [facility] POINT OF CARE TESTING [address] [place] [address] GLUCOSE BY METER, POCT (01/25/2018 4:58 PM) Component Value Ref Range Glucose POC 196 (H) 70 - 100 mg/dL Specimen Performing Laboratory Blood [facility] POINT OF CARE TESTING [address] [place] [address] GLUCOSE BY METER, POCT (01/25/2018 11:20 AM) Component Value Ref Range Glucose POC 136 (H) 70 - 100 mg/dL Specimen Performing Laboratory Blood [facility] POINT OF CARE TESTING [address] [place] [address] GLUCOSE BY METER, POCT (01/25/2018 7:51 AM) Component Value Ref Range Glucose POC 111 (H) 70 - 100 mg/dL Specimen Performing Laboratory Blood [facility] POINT OF CARE TESTING [address] [place] [address] GLUCOSE BY METER, POCT (01/24/2018 9:52 PM) Component Value Ref Range Glucose POC 161 (H) 70 - 100 mg/dL Specimen Performing Laboratory Blood [facility] POINT OF CARE TESTING [address] [place] [address] GLUCOSE BY METER, POCT (01/24/2018 11:50 AM) Component Value Ref Range Glucose POC 114 (H) 70 - 100 mg/dL Specimen Performing Laboratory Blood [facility] POINT OF CARE TESTING [address] [place] [address] LAB ONLY-COMPLETE BLOOD COUNT WITH DIFFERENTIAL (01/24/2018 8:18 AM) Component Value Ref Range WBC 10.6 4.0 - 11.0 K/uL RBC 3.75 (L) 3.80 - 5.30 M/uL Hemoglobin 12.6 11.5 - 15.8 g/dL Hematocrit 36.5 35.0 - 45.0 % MCV 97.3 80.0 - 98.0 fL MCH 33.6 25.5 - 34.0 pg MCHC 34.5 31.5 - 36.5 g/dL RDW-CV 12.9 11.5 - 15.5 % RDW-SD 46.2 35.5 - 50.0 fl Platelet Count 211 140 - 400 K/uL MPV 8.9 8.5 - 12.0 fL Seg Neut Absolute 8.2 (H) 1.8 - 8.0 K/uL Lymphocytes Absolute 1.5 0.8 - 4.1 K/uL Monocytes Absolute 0.8 0.0 - 1.0 K/uL Eosinophils Absolute 0.1 0.0 - 0.7 K/uL Basophil Absolute 0.1 0.0 - 0.2 K/uL Immature Granulocyte Absolute 0.21 (H) 0.00 - 0.06 K/uL Neutrophils Abs. (Segs and Bands) 8200 /uL Neutrophils Percent 76.9 % Lymphocytes Percent 14.1 % Monocytes Percent 7.3 % Immature Granulocyte Percent 2.0 % Eosinophils Percent 1.1 % Basophil Percent 0.6 % Specimen Performing Laboratory Blood [address] [address] COMPLETE BLOOD COUNT WITH DIFFERENTIAL (01/24/2018 8:18 AM) Specimen Performing Laboratory Blood Narrative The following orders were created for panel order COMPLETE BLOOD COUNT WITH DIFFERENTIAL. Procedure Abnormality Status --------- ------ LAB ONLY-COMPLETE BLOOD ...[[id number]]AbnormalFinal result Please view results for these tests on the individual orders. GLUCOSE BY METER, POCT (01/24/2018 8:11 AM) Component Value Ref Range Glucose POC 86 70 - 100 mg/dL Specimen Performing Laboratory Blood [facility] POINT OF CARE TESTING [address] [place] [address] LIPID PANEL (01/24/2018 7:15 AM) Component Value Ref Range Cholesterol 145 100 - 200 mg/dL Triglyceride 135 50 - 150 mg/dL HDL 33 (L) 40 - 80 mg/dL LDL 85 0 - 129 mg/dL Specimen Performing Laboratory Blood [address] [address] HEPATIC FUNCTION PANEL (01/24/2018 7:15 AM) Component Value Ref Range Alkaline Phosphatase 101 30 - 150 U/L AST - SGOT 52 (H) 0 - 35 U/L ALT - SGPT 54 0 - 55 U/L Bilirubin Total 0.6 0.2 - 1.2 mg/dL Bilirubin Indirect 0.3 0.0 - 0.8 mg/dL Bilirubin Direct 0.3 0.0 - 0.4 mg/dL Albumin 3.3 (L) 3.5 - 5.0 g/dL Protein Total 6.4 6.0 - 8.2 g/dL Specimen Performing Laboratory Blood [address] [address] BASIC METABOLIC PANEL (01/24/2018 7:15 AM) Component Value Ref Range Glucose 110 (H) 70 - 100 mg/dL BUN 38 (H) 6 - 22 mg/dL Creatinine 1.11 (H) 0.60 - 1.10 mg/dL BUN/Creatinine Ratio 34.2 (H) 10.0 - 25.0 Sodium 139 135 - 145 meq/L Potassium 3.9 3.5 - 5.3 meq/L Chloride 104 99 - 110 meq/L CO2 24 20 - 29 meq/L Anion Gap with K 15 6 - 20 meq/L Calcium 8.9 8.5 - 10.5 mg/dL Age 77 Years eGFR Non- 48 (L) >=60 mL/min/1.73m2 eGFR 58 (L) >=60 mL/min/1.73m2 Specimen Performing Laboratory Blood [facility] [facility] [address] [place] [address] GLUCOSE BY METER, POCT (01/23/2018 9:05 PM) Component Value Ref Range Glucose POC 108 (H) 70 - 100 mg/dL Specimen Performing Laboratory Blood [facility] POINT OF CARE TESTING [address] [place] [address] ACTIVATED CLOTTING TIME POCT (01/23/2018 2:44 PM) Component Value Ref Range Activated Clotting Time 197 (H) 100 - 150 Secs Specimen Performing Laboratory Blood [facility] POINT OF CARE TESTING [address] [place] [address] BLOOD GASES ARTERIAL (01/23/2018 12:50 PM) Component Value Ref Range pH Arterial 7.35 7.35 - 7.45 pCO2 Arterial 55 (H) 35 - 45 mmHg pO2 Arterial 84 80 - 100 mmHg Base Excess Arterial 3 (H) -2 - 2 meq/L HCO3 (Bicarb) 30 (H) 20 - 29 mmol/L O2 Sat % Arterial 95 95 - 98 % Carbon Monoxide 1.1 0.0 - 3.0 % Methemoglobin 0.5 0.0 - 3.0 % O2 Content Arterial 17.1 17.0 - 20.0 Vol% p50 26.20 25.00 - 29.00 mmHg Allens Test Positive Collection Site Arterial Lt radial O2 Source NIV Specimen Performing Laboratory Blood - Arterial [facility] - RESPIRATORY THERAPY [address] [place] [address] Narrative 14/8 50% XRAY CHEST 1V - (01/23/2018 9:40 AM) Specimen Performing Laboratory PS360 Narrative Patient Name: REGI GUZMAN Date of :1940 Procedure: XRAY CHEST 1 VIEW Date of Service: 01/23/2018 EXAM: XRAY CHEST 1 VIEW INDICATION: shortness of breath COMPARISON(S): 01/21/2018 FINDINGS/IMPRESSION: Cardiac silhouette is enlarged. There is pulmonary vascular congestion worse since the prior study, indistinctness of the vascular margins, Destini B-lines, trace bilateral pleural effusions. These findings suggest interval worsening of CHF with mild interstitial edema. Groundglass opacity in the bases likely atelectasis. No pneumothorax. Aortic vascular calcifications are present. Finalized by: Hardy Stanley MD on 01/23/2018 10:05 AM Patient/Procedure Information: [facility] MRN/SHOSHANA: [id number] Order Number: [id number] Accession Number: [id number] Ordering Provider: SUSHANT MENA Authorizing Provider: SUSHANT MENA Procedure Note Interface, Radiantres - 01/23/2018 10:31 AM CDT Patient Name: REGI GUZMAN Date of : 1940 Procedure: XRAY CHEST 1 VIEW Date of Service: 01/23/2018 EXAM: XRAY CHEST 1 VIEW INDICATION: shortness of breath COMPARISON(S): 01/21/2018 FINDINGS/IMPRESSION: Cardiac silhouette is enlarged. There is pulmonary vascular congestion worse since the prior study, indistinctness of the vascular margins, Destini B-lines, trace bilateral pleural effusions. These findings suggest interval worsening of CHF with mild interstitial edema. Groundglass opacity in the bases likely atelectasis. No pneumothorax. Aortic vascular calcifications are present. Finalized by: Hardy Stanley MD on 01/23/2018 10:05 AM Patient/Procedure Information: [facility] MRN/SHOSHANA: [id number] Order Number: [id number] Accession Number: [id number] Ordering Provider: SUSHANT MENA Authorizing Provider: SUSHANT MENA BLOOD GASES ARTERIAL WITH IONIZED CALCIUM AND LACTIC ACID (01/23/2018 9:01 AM) Component Value Ref Range pH Arterial 7.26 (L) 7.35 - 7.45 pCO2 Arterial 63 (H) 35 - 45 mmHg pO2 Arterial 117 (H) 80 - 100 mmHg Base Excess Arterial 0 -2 - 2 meq/L HCO3 (Bicarb) 28 20 - 29 mmol/L O2 Sat % Arterial 96 95 - 98 % Carbon Monoxide 1.0 0.0 - 3.0 % Methemoglobin 0.6 0.0 - 3.0 % O2 Content Arterial 18.9 17.0 - 20.0 Vol% p50 30.94 (H) 25.00 - 29.00 mmHg Allens Test Positive Collection Site Arterial Lt radial O2 Source NIV Ionized Calcium 1.17 1.12 - 1.32 mmol/L Lactic Acid 0.9 0.5 - 2.2 mmol/L Specimen Performing Laboratory Blood - Arterial [facility] - RESPIRATORY THERAPY [address] [place] [address] Narrative 09/02, 70% COMPREHENSIVE METABOLIC PANEL (01/23/2018 5:50 AM) Component Value Ref Range Glucose 97 70 - 100 mg/dL BUN 45 (H) 6 - 22 mg/dL Creatinine 1.29 (H) 0.60 - 1.10 mg/dL BUN/Creatinine Ratio 34.9 (H) 10.0 - 25.0 Sodium 139 135 - 145 meq/L Potassium 4.3 3.5 - 5.3 meq/L Chloride 103 99 - 110 meq/L CO2 22 20 - 29 meq/L Anion Gap with K 18 6 - 20 meq/L Calcium 8.8 8.5 - 10.5 mg/dL Protein Total 6.6 6.0 - 8.2 g/dL Albumin 3.4 (L) 3.5 - 5.0 g/dL Alkaline Phosphatase 105 30 - 150 U/L AST - SGOT 59 (H) 0 - 35 U/L ALT - SGPT 54 0 - 55 U/L Bilirubin Total 0.4 0.2 - 1.2 mg/dL Corrected Calcium 9.3 8.5 - 10.5 mg/dL Age 77 Years eGFR Non- 40 (L) >=60 mL/min/1.73m2 eGFR 49 (L) >=60 mL/min/1.73m2 Specimen Performing Laboratory Blood [place] [address] [facility] [address] [place] [address] MAGNESIUM (01/23/2018 5:50 AM) Component Value Ref Range Magnesium 2.5 (H) 1.8 - 2.4 mg/dL Specimen Performing Laboratory Blood [address] [place] [address] RENAL FUNCTION PANEL (01/23/2018 5:50 AM) Component Value Ref Range Glucose 97 70 - 100 mg/dL BUN 45 (H) 6 - 22 mg/dL Creatinine 1.27 (H) 0.60 - 1.10 mg/dL BUN/Creatinine Ratio 35.4 (H) 10.0 - 25.0 Sodium 140 135 - 145 meq/L Potassium 4.4 3.5 - 5.3 meq/L Chloride 104 99 - 110 meq/L CO2 24 20 - 29 meq/L Anion Gap with K 16 6 - 20 meq/L Calcium 8.9 8.5 - 10.5 mg/dL Phosphorus 4.2 2.5 - 4.5 mg/dL Albumin 3.4 (L) 3.5 - 5.0 g/dL Corrected Calcium 9.4 8.5 - 10.5 mg/dL Age 77 Years eGFR Non- 41 (L) >=60 mL/min/1.73m2 eGFR 50 (L) >=60 mL/min/1.73m2 Specimen Performing Laboratory Blood [address] [place] [address] GLUCOSE BY METER, POCT (01/22/2018 9:12 PM) Component Value Ref Range Glucose POC 155 (H) 70 - 100 mg/dL Specimen Performing Laboratory Blood [facility] POINT OF CARE TESTING [address] [address] GLUCOSE BY METER, POCT (01/22/2018 5:26 PM) Component Value Ref Range Glucose POC 174 (H) 70 - 100 mg/dL Specimen Performing Laboratory Blood [facility] POINT OF CARE TESTING [address] [address] GLUCOSE BY METER, POCT (01/22/2018 12:19 PM) Component Value Ref Range Glucose POC 122 (H) 70 - 100 mg/dL Specimen Performing Laboratory Blood [facility] POINT OF CARE TESTING [address] [place] [address] GLUCOSE BY METER, POCT (01/22/2018 8:46 AM) Component Value Ref Range Glucose POC 95 70 - 100 mg/dL Specimen Performing Laboratory Blood [facility] POINT OF CARE TESTING [address] [place] [address] MAGNESIUM (01/22/2018 5:38 AM) Component Value Ref Range Magnesium 2.2 1.8 - 2.4 mg/dL Specimen Performing Laboratory Blood [facility] [facility] [address] [place] [address] RENAL FUNCTION PANEL (01/22/2018 5:38 AM) Component Value Ref Range Glucose 110 (H) 70 - 100 mg/dL BUN 49 (H) 6 - 22 mg/dL Creatinine 1.29 (H) 0.60 - 1.10 mg/dL BUN/Creatinine Ratio 38.0 (H) 10.0 - 25.0 Sodium 137 135 - 145 meq/L Potassium 3.9 3.5 - 5.3 meq/L Chloride 100 99 - 110 meq/L CO2 23 20 - 29 meq/L Anion Gap with K 18 6 - 20 meq/L Calcium 8.9 8.5 - 10.5 mg/dL Phosphorus 3.8 2.5 - 4.5 mg/dL Albumin 3.2 (L) 3.5 - 5.0 g/dL Corrected Calcium 9.5 8.5 - 10.5 mg/dL Age 77 Years eGFR Non- 40 (L) >=60 mL/min/1.73m2 eGFR 49 (L) >=60 mL/min/1.73m2 Specimen Performing Laboratory Blood [address] [place] [address] COMPLETE BLOOD COUNT WITHOUT DIFFERENTIAL (01/22/2018 5:38 AM) Component Value Ref Range WBC 7.6 4.0 - 11.0 K/uL RBC 3.68 (L) 3.80 - 5.30 M/uL Hemoglobin 12.4 11.5 - 15.8 g/dL Hematocrit 36.2 35.0 - 45.0 % MCV 98.4 (H) 80.0 - 98.0 fL MCH 33.7 25.5 - 34.0 pg MCHC 34.3 31.5 - 36.5 g/dL RDW-CV 12.7 11.5 - 15.5 % RDW-SD 45.9 35.5 - 50.0 fl Platelet Count 222 140 - 400 K/uL MPV 9.4 8.5 - 12.0 fL Specimen Performing Laboratory Blood [address] [place] [address] LAB ONLY-URINE MICROSCOPIC REFLEX (01/21/2018 10:55 PM) Component Value Ref Range WBC Urine 0-2 Negative, 0-2, 3-5 /HPF RBC Urine 6-10 (A) Negative, 0-2 /HPF Epithelial Cells Mod (16-30) (A) Negative, Rare (0-1), Occ (2-5), Few (6-15) /LPF Bacteria Negative Negative, Rare (0-5), Few (6-30) /HPF Cast, Hyaline 0-2 Negative, 0-2 /LPF Specimen Performing Laboratory Urine - Clean Catch [address] [place] [address] Narrative Criteria not met for reflexing urine culture. Microscopic exam performed.Elements present are reported above. A urine culture will be performed when one or more Of the following criteria are met: Positive Leukocyte Esterase with WBC value >=6 cells/hpf. Positive Leukocyte Esterase with Positive Nitrite. Positive Nitrite with WBC value >=6 cells/hpf. URINE DIP, REFLEX TO MICROSCOPIC, REFLEX TO CULTURE (01/21/2018 10:55 PM) Component Value Ref Range Color Urine Yellow Colorless, Yellow, Straw, Dark Yellow, Valeria Clarity Urine Clear Clear Glucose Urine Negative Negative Bilirubin Urine <2 mg/dL <2 mg/dL Ketone Urine Negative Negative, 10 mg/dL Specific [place] 1.017 1.002 - 1.035 Blood Urine Small (A) Negative pH Urine 5.5 5.0, 5.5, 6.0, 6.5, 7.0, 7.5, 8.0 Protein Urine 100 mg/dL (A) Negative Urobilinogen Urine 0.2 EU/dL 0.2 EU/dL, 1.0 EU/dL Nitrite Urine Negative Negative Leukocyte Esterase Urine Negative Negative Specimen Performing Laboratory Urine - Clean Catch [address] [place] [address] Narrative A microscopic examination of urine will be performed if one or more of the following criteria are met: Blood: Positive Protein: Positive Nitrite: Positive Leukocyte Esterase: Positive XRAY CHEST PORTABLE - (01/21/2018 9:59 PM)Only the most recent of2 resultswithin the time period is included. Specimen Performing Laboratory PS360 Narrative Patient Name: REGI GUZMAN Date of :1940 Procedure: XRAY CHEST PORTABLE Date of Service: 01/21/2018 EXAM: XRAY CHEST PORTABLE INDICATION: worsening O2 demand COMPARISON(S): Portable chest 01/17/2018 FINDINGS: There are bilateral pleural fluid collections, increased on both sides from the prior exam. Suspect consolidation and atelectasis in the lower lungs, not evident on the right previously and more on the left than before. There are pulmonary vascular congestion and cardiomegaly, unchanged. There are increased interstitial markings in the mid and upper zones, as before. Finalized by: Kasi Clemens MD on 01/21/2018 10:28 PM Patient/Procedure Information: [facility] MRN/SHOSHANA: [id number] Order Number: [id number] Accession Number: [id number] Ordering Provider: GRICELDA RO Authorizing Provider: GRICELDA RO Procedure Note Interface, Radiantres - 01/21/2018 10:30 PM CDT Patient Name: REGI GUZMAN Date of : 1940 Procedure: XRAY CHEST PORTABLE Date of Service: 01/21/2018 EXAM: XRAY CHEST PORTABLE INDICATION: worsening O2 demand COMPARISON(S): Portable chest 01/17/2018 FINDINGS: There are bilateral pleural fluid collections, increased on both sides from the prior exam. Suspect consolidation and atelectasis in the lower lungs, not evident on the right previously and more on the left than before. There are pulmonary vascular congestion and cardiomegaly, unchanged. There are increased interstitial markings in the mid and upper zones, as before. Finalized by: Kasi Clemens MD on 01/21/2018 10:28 PM Patient/Procedure Information: [facility] MRN/SHOSHANA: [id number] Order Number: [id number] Accession Number: [id number] Ordering Provider: GRICELDA RO Authorizing Provider: GRICELDA RO GLUCOSE BY METER, POCT (01/21/2018 9:31 PM) Component Value Ref Range Glucose POC 141 (H) 70 - 100 mg/dL Specimen Performing Laboratory Blood [facility] POINT OF CARE TESTING [address] [facility] [place] [address] GLUCOSE BY METER, POCT (01/21/2018 11:54 AM) Component Value Ref Range Glucose POC 112 (H) 70 - 100 mg/dL Specimen Performing Laboratory Blood [facility] POINT OF CARE TESTING [address] [place] [address] LAB ONLY-COMPLETE BLOOD COUNT WITH DIFFERENTIAL (01/21/2018 10:20 AM) Component Value Ref Range WBC 8.3 4.0 - 11.0 K/uL RBC 3.71 (L) 3.80 - 5.30 M/uL Hemoglobin 12.5 11.5 - 15.8 g/dL Hematocrit 36.6 35.0 - 45.0 % MCV 98.7 (H) 80.0 - 98.0 fL MCH 33.7 25.5 - 34.0 pg MCHC 34.2 31.5 - 36.5 g/dL RDW-CV 12.7 11.5 - 15.5 % RDW-SD 46.1 35.5 - 50.0 fl Platelet Count 220 140 - 400 K/uL MPV 9.3 8.5 - 12.0 fL Seg Neut Absolute 6.2 1.8 - 8.0 K/uL Lymphocytes Absolute 1.3 0.8 - 4.1 K/uL Monocytes Absolute 0.6 0.0 - 1.0 K/uL Eosinophils Absolute 0.2 0.0 - 0.7 K/uL Basophil Absolute 0.0 0.0 - 0.2 K/uL Immature Granulocyte Absolute 0.14 (H) 0.00 - 0.06 K/uL Neutrophils Abs. (Segs and Bands) 6200 /uL Neutrophils Percent 74.9 % Lymphocytes Percent 15.9 % Monocytes Percent 6.6 % Immature Granulocyte Percent 1.7 % Eosinophils Percent 2.1 % Basophil Percent 0.5 % Specimen Performing Laboratory Blood [address] [place] [address] COMPLETE BLOOD COUNT WITH DIFFERENTIAL (01/21/2018 10:20 AM) Specimen Performing Laboratory Blood Narrative The following orders were created for panel order COMPLETE BLOOD COUNT WITH DIFFERENTIAL. Procedure Abnormality Status --------- ------ LAB ONLY-COMPLETE BLOOD ...[[id number]]AbnormalFinal result Please view results for these tests on the individual orders. GLUCOSE BY METER, POCT (01/21/2018 7:50 AM) Component Value Ref Range Glucose POC 122 (H) 70 - 100 mg/dL Specimen Performing Laboratory Blood [facility] POINT OF CARE TESTING [address] [place] [address], [place] [address] COLLECT AND HOLD LAVENDER (EDTA) TOP TUBE (01/21/2018 6:37 AM) Component Value Ref Range Collect and Hold Specimen Status Comment: RECEIVED Specimen Performing Laboratory Blood [facility] [address] [facility] [address] [place] [address] PTT (01/21/2018 6:37 AM) Component Value Ref Range APTT 49 (H) 24 - 35 secs Specimen Performing Laboratory Blood [facility] [address] [facility] [place] [address], [place] [address] RENAL FUNCTION PANEL (01/21/2018 6:37 AM) Component Value Ref Range Glucose 103 (H) 70 - 100 mg/dL BUN 50 (H) 6 - 22 mg/dL Creatinine 1.48 (H) 0.60 - 1.10 mg/dL BUN/Creatinine Ratio 33.8 (H) 10.0 - 25.0 Sodium 137 135 - 145 meq/L Potassium 3.7 3.5 - 5.3 meq/L Chloride 99 99 - 110 meq/L CO2 27 20 - 29 meq/L Anion Gap with K 15 6 - 20 meq/L Calcium 8.8 8.5 - 10.5 mg/dL Phosphorus 4.7 (H) 2.5 - 4.5 mg/dL Albumin 3.2 (L) 3.5 - 5.0 g/dL Corrected Calcium 9.4 8.5 - 10.5 mg/dL Age 77 Years eGFR Non- 34 (L) >=60 mL/min/1.73m2 eGFR 42 (L) >=60 mL/min/1.73m2 Specimen Performing Laboratory Blood [facility] [address] [facility] [address] [place] [address], [place] [address] COMPLETE BLOOD COUNT WITHOUT DIFFERENTIAL (01/21/2018 6:37 AM) Component Value Ref Range WBC 6.8 4.0 - 11.0 K/uL RBC 3.77 (L) 3.80 - 5.30 M/uL Hemoglobin 12.5 11.5 - 15.8 g/dL Hematocrit 37.6 35.0 - 45.0 % MCV 99.7 (H) 80.0 - 98.0 fL MCH 33.2 25.5 - 34.0 pg MCHC 33.2 31.5 - 36.5 g/dL RDW-CV 12.9 11.5 - 15.5 % RDW-SD 46.9 35.5 - 50.0 fl Platelet Count 195 140 - 400 K/uL MPV 9.3 8.5 - 12.0 fL Specimen Performing Laboratory Blood [facility] [address] [facility] [address] [place] [address] PTT (01/20/2018 7:35 PM) Component Value Ref Range APTT 67 (H) 24 - 35 secs Specimen Performing Laboratory Blood [facility] [address] [facility] [address] [place] [address], [place] [address] GLUCOSE BY METER, POCT (01/20/2018 6:00 PM) Component Value Ref Range Glucose POC 135 (H) 70 - 100 mg/dL Specimen Performing Laboratory Blood [facility] POINT OF CARE TESTING [address] [place] [address] PTT (01/20/2018 12:20 PM) Component Value Ref Range APTT 136 (H) 24 - 35 secs Specimen Performing Laboratory Blood [facility] [address] [facility] [address] [place] [address], [place] [address] [id number] SINGLE PHARMGX TEST (1 GENE) (01/20/2018 12:20 PM) Component Value Ref Range [id number] Phenotype Rapid Metabolizer [id number] Genotype *1/*17 Specimen Performing Laboratory [facility] [address] [place] [address] Narrative Complete interpretive report under separate document. RENAL FUNCTION PANEL (01/20/2018 12:20 PM) Component Value Ref Range Glucose 140 (H) 70 - 100 mg/dL BUN 51 (H) 6 - 22 mg/dL Creatinine 1.84 (H) 0.60 - 1.10 mg/dL BUN/Creatinine Ratio 27.7 (H) 10.0 - 25.0 Sodium 138 135 - 145 meq/L Potassium 3.5 3.5 - 5.3 meq/L Chloride 98 (L) 99 - 110 meq/L CO2 30 (H) 20 - 29 meq/L Anion Gap with K 14 6 - 20 meq/L Calcium 8.7 8.5 - 10.5 mg/dL Phosphorus 4.8 (H) 2.5 - 4.5 mg/dL Albumin 3.1 (L) 3.5 - 5.0 g/dL Corrected Calcium 9.4 8.5 - 10.5 mg/dL Age 77 Years eGFR Non- 27 (L) >=60 mL/min/1.73m2 eGFR 32 (L) >=60 mL/min/1.73m2 Specimen Performing Laboratory Blood [facility] [address] [facility] [address] [place] [address] GLUCOSE BY METER, POCT (01/20/2018 11:33 AM) Component Value Ref Range Glucose POC 147 (H) 70 - 100 mg/dL Specimen Performing Laboratory Blood [facility] POINT OF CARE TESTING [address] [place] [address] PTT (01/20/2018 11:30 AM) Component Value Ref Range APTT >150 (HH) 24 - 35 secs Specimen Performing Laboratory Blood [facility] [address] [facility] [address] [place] [address] GLUCOSE BY METER, POCT (01/20/2018 7:38 AM) Component Value Ref Range Glucose POC 84 70 - 100 mg/dL Specimen Performing Laboratory Blood [facility] POINT OF CARE TESTING [address] [place] [address] TROPONIN I (01/20/2018 5:41 AM) Component Value Ref Range Troponin I 2.182 (H) 0.000 - 0.028 ng/mL Specimen Performing Laboratory Blood [facility] [address] [facility] [address] [place] [address] MAGNESIUM (01/20/2018 5:41 AM) Component Value Ref Range Magnesium 2.2 1.8 - 2.4 mg/dL Specimen Performing Laboratory Blood [facility] [address] [facility] [address] [place] [address] RENAL FUNCTION PANEL (01/20/2018 5:41 AM) Component Value Ref Range Glucose 104 (H) 70 - 100 mg/dL BUN 50 (H) 6 - 22 mg/dL Creatinine 1.90 (H) 0.60 - 1.10 mg/dL BUN/Creatinine Ratio 26.3 (H) 10.0 - 25.0 Sodium 137 135 - 145 meq/L Potassium 3.7 3.5 - 5.3 meq/L Chloride 100 99 - 110 meq/L CO2 25 20 - 29 meq/L Anion Gap with K 16 6 - 20 meq/L Calcium 8.3 (L) 8.5 - 10.5 mg/dL Phosphorus 4.9 (H) 2.5 - 4.5 mg/dL Albumin 2.9 (L) 3.5 - 5.0 g/dL Corrected Calcium 9.2 8.5 - 10.5 mg/dL Age 77 Years eGFR Non- 26 (L) >=60 mL/min/1.73m2 eGFR 31 (L) >=60 mL/min/1.73m2 Specimen Performing Laboratory Blood [facility] [address] [facility] [address] [place] [address] PTT (01/19/2018 11:44 PM) Component Value Ref Range APTT 59 (H) 24 - 35 secs Specimen Performing Laboratory Blood [address] [address] GLUCOSE BY METER, POCT (01/19/2018 9:09 PM) Component Value Ref Range Glucose POC 179 (H) 70 - 100 mg/dL Specimen Performing Laboratory Blood [facility] POINT OF CARE TESTING [address] [place] [address] PTT (01/19/2018 5:02 PM) Component Value Ref Range APTT 68 (H) 24 - 35 secs Specimen Performing Laboratory Blood [address] [address] TROPONIN I (01/19/2018 5:02 PM) Component Value Ref Range Troponin I 2.113 (H) 0.000 - 0.028 ng/mL Specimen Performing Laboratory Blood [address] [address] PTT (01/19/2018 3:53 PM) Component Value Ref Range APTT >150 (HH) 24 - 35 secs Specimen Performing Laboratory Blood [facility] [address] [facility] [address] [place] [address] GLUCOSE BY METER, POCT (01/19/2018 11:51 AM) Component Value Ref Range Glucose POC 139 (H) 70 - 100 mg/dL Specimen Performing Laboratory Blood [facility] POINT OF CARE TESTING [address] [place] [address] PTT (01/19/2018 8:19 AM) Component Value Ref Range APTT 79 (H) 24 - 35 secs Specimen Performing Laboratory Blood [address] [address] ELECTROENCEPHALOGRAM (01/19/2018 7:51 AM) Specimen Performing Laboratory ALEXX Lehman Jerman Aponte MD 01/19/20187:51 AM ROUTINE EEG Identifying Information: Name: Regi Guzman : 1940 Interpreting Physician: Jerman Aponte MD Clinical History: Regi Guzman is an 77yr female for which a routine EEG was ordered on for further evaluation of a shaking spell. EEG date: 01/18/18 Technical Summary: 20 channels of continuous EEG were recorded in a digital format on a patient who is reported to be drowsy during the recording. The background rhythm consists of 20-40 microvolt activity in the alpha frequency range approximately 7 Hz that was maximal over the posterior head regions and reactive to eye opening and closure. During the recording: No focal slowing was seen. No epileptiform discharges or seizures were detected. The patient became drowsy and stage II sleep was seen. The EKG monitoring channel did not detect any significant rhythm abnormalities. EEG Interpretation: This EEG is abnormal due to the presence of: 1) Mild generalized slowing. - This is a non-specific finding but is consistent with a generalized disturbance of cerebral function. It may be seen in a variety of conditions, such as toxic, metabolic, post-anoxic, multi-focal or diffuse structural abnormalities. - No electrographic seizures or non-convulsive status epilepticus were seen during this recording. Clinical correlation is recommended. MAGNESIUM (01/19/2018 5:04 AM) Component Value Ref Range Magnesium 2.2 1.8 - 2.4 mg/dL Specimen Performing Laboratory Blood [place] [address] [place] [address] RENAL FUNCTION PANEL (01/19/2018 5:04 AM) Component Value Ref Range Glucose 80 70 - 100 mg/dL BUN 33 (H) 6 - 22 mg/dL Creatinine 1.09 0.60 - 1.10 mg/dL BUN/Creatinine Ratio 30.3 (H) 10.0 - 25.0 Sodium 139 135 - 145 meq/L Potassium 3.3 (L) 3.5 - 5.3 meq/L Chloride 100 99 - 110 meq/L CO2 28 20 - 29 meq/L Anion Gap with K 14 6 - 20 meq/L Calcium 8.7 8.5 - 10.5 mg/dL Phosphorus 3.8 2.5 - 4.5 mg/dL Albumin 3.1 (L) 3.5 - 5.0 g/dL Corrected Calcium 9.4 8.5 - 10.5 mg/dL Age 77 Years eGFR Non- 49 (L) >=60 mL/min/1.73m2 eGFR 59 (L) >=60 mL/min/1.73m2 Specimen Performing Laboratory Blood [facility] [address] [facility] [address] [place] [address] PTT (01/19/2018 5:04 AM) Component Value Ref Range APTT 101 (H) 24 - 35 secs Specimen Performing Laboratory Blood [address] [address] PTT (01/19/2018 2:17 AM) Component Value Ref Range APTT 111 (H) 24 - 35 secs Specimen Performing Laboratory Blood [facility] [address] [facility] [address] [place] [address] GLUCOSE BY METER, POCT (01/18/2018 10:04 PM) Component Value Ref Range Glucose POC 147 (H) 70 - 100 mg/dL Specimen Performing Laboratory Blood [facility] POINT OF CARE TESTING [address] [place] [address] PTT (01/18/2018 8:11 PM) Component Value Ref Range APTT 113 (H) 24 - 35 secs Specimen Performing Laboratory Blood [facility] [address] [facility] [address] [place] [address] MRI BRAIN WITHOUT AND WITH CONTRAST (01/18/2018 3:31 PM) Specimen Performing Laboratory PS360 Narrative Patient Name: REGI GUZMAN Date of :1940 Procedure: MRI BRAIN WITH AND WITHOUT CONTRAST Date of Service: 01/18/2018 EXAM: MRI BRAIN WITH AND WITHOUT CONTRAST INDICATION: Seizures new or progressive TECHNIQUE: MRI of the brain performed without and following IV contrast. COMPARISON(S): None Available FINDINGS: The examination is degraded secondary to patient motion. Diffusion weighted images reveal no hyperintensities to suggest acute cerebral infarction. The ventricles are normal in size and position without evidence of hydrocephalus. There are T2 hyperintensities of the cerebral white matter, most consistent with chronic small vessel disease. There is no abnormal intraparenchymal enhancement. On the sagittal images, the midline markers are unremarkable. The corpus callosum is normal in shape and signal intensity. The posterior fossa is unremarkable. The pituitary and sella are normal. The brainstem and craniocervical junction are unremarkable. The visualized portions of the orbits, mastoids, and paranasal sinuses are normal. IMPRESSION: 1.No acute intracranial abnormality. 2.Chronic small vessel disease. Finalized by: Phan Tyler MD on 01/18/2018 3:59 PM Patient/Procedure Information: [facility] MRN/SHOSHANA: [id number] Order Number: [id number] Accession Number: [id number] Ordering Provider: JERMAN APONTE Authorizing Provider: JERMAN APONTE Procedure Note Interface, Radiantres - 01/18/2018 4:01 PM CDT Patient Name: REGI GUZMNA Date of : 1940 Procedure: MRI BRAIN WITH AND WITHOUT CONTRAST Date of Service: 01/18/2018 EXAM: MRI BRAIN WITH AND WITHOUT CONTRAST INDICATION: Seizures new or progressive TECHNIQUE: MRI of the brain performed without and following IV contrast. COMPARISON(S): None Available FINDINGS: The examination is degraded secondary to patient motion. Diffusion weighted images reveal no hyperintensities to suggest acute cerebral infarction. The ventricles are normal in size and position without evidence of hydrocephalus. There are T2 hyperintensities of the cerebral white matter, most consistent with chronic small vessel disease. There is no abnormal intraparenchymal enhancement. On the sagittal images, the midline markers are unremarkable. The corpus callosum is normal in shape and signal intensity. The posterior fossa is unremarkable. The pituitary and sella are normal. The brainstem and craniocervical junction are unremarkable. The visualized portions of the orbits, mastoids, and paranasal sinuses are normal. IMPRESSION: 1. No acute intracranial abnormality. 2. Chronic small vessel disease. Finalized by: Phan Tyler MD on 01/18/2018 3:59 PM Patient/Procedure Information: [facility] [facility] MRN/SHOSHANA: [id number] Order Number: [id number] Accession Number: [id number] Ordering Provider: JERMAN APONTE Authorizing Provider: JERMAN APONTE PTT (01/18/2018 2:02 PM) Component Value Ref Range APTT 72 (H) 24 - 35 secs Specimen Performing Laboratory Blood [address] [address] TROPONIN I (01/18/2018 8:39 AM) Component Value Ref Range Troponin I 5.167 (H) 0.000 - 0.028 ng/mL Specimen Performing Laboratory Blood [address] [address] PTT (01/18/2018 6:56 AM) Component Value Ref Range APTT 110 (H) 24 - 35 secs Specimen Performing Laboratory Blood [address] [address] PTT (01/18/2018 5:00 AM) Component Value Ref Range APTT >150 (HH) 24 - 35 secs Specimen Performing Laboratory Blood [address] [address] COLLECT AND HOLD BLUE (NACIT) TOP TUBE (01/18/2018 5:00 AM) Component Value Ref Range Collect and Hold Specimen Status Comment: RECEIVED Specimen Performing [address] [address] LAB ONLY-COMPLETE BLOOD COUNT WITH DIFFERENTIAL (01/18/2018 5:00 AM) Component Value Ref Range WBC 8.8 4.0 - 11.0 K/uL RBC 3.96 3.80 - 5.30 M/uL Hemoglobin 13.1 11.5 - 15.8 g/dL Hematocrit 39.2 35.0 - 45.0 % MCV 99.0 (H) 80.0 - 98.0 fL MCH 33.1 25.5 - 34.0 pg MCHC 33.4 31.5 - 36.5 g/dL RDW-CV 12.7 11.5 - 15.5 % RDW-SD 46.2 35.5 - 50.0 fl Platelet Count 189 140 - 400 K/uL MPV 9.3 8.5 - 12.0 fL Seg Neut Absolute 6.2 1.8 - 8.0 K/uL Lymphocytes Absolute 1.8 0.8 - 4.1 K/uL Monocytes Absolute 0.6 0.0 - 1.0 K/uL Eosinophils Absolute 0.1 0.0 - 0.7 K/uL Basophil Absolute 0.1 0.0 - 0.2 K/uL Immature Granulocyte Absolute 0.08 (H) 0.00 - 0.06 K/uL Neutrophils Abs. (Segs and Bands) 6200 /uL Neutrophils Percent 71.1 % Lymphocytes Percent 20.8 % Monocytes Percent 6.5 % Immature Granulocyte Percent 0.9 % Eosinophils Percent 1.0 % Basophil Percent 0.6 % Specimen Performing Laboratory Blood [address] [address] COMPLETE BLOOD COUNT WITH DIFFERENTIAL (01/18/2018 5:00 AM) Specimen Performing Laboratory Blood Narrative The following orders were created for panel order COMPLETE BLOOD COUNT WITH DIFFERENTIAL. Procedure Abnormality Status --------- ------ LAB ONLY-COMPLETE BLOOD ...[[id number]]AbnormalFinal result Please view results for these tests on the individual orders. MAGNESIUM (01/18/2018 5:00 AM) Component Value Ref Range Magnesium 2.2 1.8 - 2.4 mg/dL Specimen Performing Laboratory Blood [address] [address] BASIC METABOLIC PANEL (01/18/2018 5:00 AM) Component Value Ref Range Glucose 94 70 - 100 mg/dL BUN 31 (H) 6 - 22 mg/dL Creatinine 1.14 (H) 0.60 - 1.10 mg/dL BUN/Creatinine Ratio 27.2 (H) 10.0 - 25.0 Sodium 139 135 - 145 meq/L Potassium 3.4 (L) 3.5 - 5.3 meq/L Chloride 99 99 - 110 meq/L CO2 30 (H) 20 - 29 meq/L Anion Gap with K 13 6 - 20 meq/L Calcium 8.8 8.5 - 10.5 mg/dL Age 77 Years eGFR Non- 46 (L) >=60 mL/min/1.73m2 eGFR 56 (L) >=60 mL/min/1.73m2 Specimen Performing Laboratory Blood [address] [address] TROPONIN I (01/18/2018 5:00 AM) Component Value Ref Range Troponin I 7.470 (H) 0.000 - 0.028 ng/mL Specimen Performing Laboratory Blood [address] [address] [address] HEAD WITHOUT CONTRAST (01/17/2018 8:05 PM) Specimen Performing Laboratory PS360 Narrative Patient Name: REGI GUZMAN Date of :1940 Procedure: CT HEAD WITHOUT CONTRAST Date of Service: 01/17/2018 EXAM: CT HEAD WITHOUT CONTRAST INDICATION:focal seizure COMPARISON(S): CT head 12/07/2017 TECHNIQUE: Multiplanar CT of the head without IV contrast. IMPRESSION: 1. No acute intracranial findings. 2. No significant change from 12/07/2017. FINDINGS: No intracranial hemorrhage, mass effect, or acute infarct. Minimal cerebral volume loss. Intracranial arterial calcification. No suspicious calvarial lesion. Heterogeneous mineralization pattern. Paranasal sinuses and mastoid air cells are well-aerated. Finalized by: Adriana Jacobs MD on 01/17/2018 8:10 PM Patient/Procedure Information: [facility] MRN/SHOSHANA: [id number] Order Number: [id number] Accession Number: [id number] Ordering Provider: KASEY JUNIOR Authorizing Provider: KASEY JUNIOR Procedure Note Interface, [facility] - 01/17/2018 8:12 PM CDT Patient Name: REGI GUZMAN Date of : 1940 Procedure: CT HEAD WITHOUT CONTRAST Date of Service: 01/17/2018 EXAM: CT HEAD WITHOUT CONTRAST INDICATION:focal seizure COMPARISON(S): CT head 12/07/2017 TECHNIQUE: Multiplanar CT of the head without IV contrast. IMPRESSION: 1. No acute intracranial findings. 2. No significant change from 12/07/2017. FINDINGS: No intracranial hemorrhage, mass effect, or acute infarct. Minimal cerebral volume loss. Intracranial arterial calcification. No suspicious calvarial lesion. Heterogeneous mineralization pattern. Paranasal sinuses and mastoid air cells are well-aerated. Finalized by: Adriana Jacobs MD on 01/17/2018 8:10 PM Patient/Procedure Information: [facility] MRN/SHOSHANA: [id number] Order Number: [id number] Accession Number: [id number] Ordering Provider: KASEY JUNIOR Authorizing Provider: KASEY JUNIOR ECHO ADULT COMPLETE (01/17/2018 7:17 PM) Narrative Patient: REGI GUZMAN MR#:[id number] Exam Date:01/17/2018 Transthoracic Echocardiogram [facility] [address] [place], [id number] : 99/67 mmHgHR: :1Exam Location: Height: 60.00 "(152.4 cm) Age:77 year(s)[facility].(80.74 kg[facility] Gender: FemalePatient Status: Inpatient BSA:1.78 m2 Ordering Physician: Kasey Junior DO Reading Physician:Liana Vance MD [facility] Lead Installer:David Pack RDCS Procedure Indication(s):NSTEMI, acute CHF Examination:TTE Complete 2D(m-mode) , Complete Spectral Doppler, Color Doppler, with Contrast,Optison Conclusions Left Ventricle: Normal left ventricular size. The ejection fraction is visually estimated to be 50 %. The basal inferolateral, mid inferolateral and mid anterolateral wall segments are hypokinetic. The apical lateral and apex wall segments are akinetic. IVC: Dilated IVC with minimal respirophasic changes. Comparison Study Comparison Date: 12/01/2015 Comparison Study: Transthoracic Echocardiogram LV overall function has decreased from 65% to 50% Findings Left Ventricle: Normal left ventricular size. Normal left ventricular wall thickness. Normal left ventricular systolic function. The ejection fraction is visually estimated to be 50 %. The basal inferolateral, mid inferolateral and mid anterolateral wall segments are hypokinetic. The apical lateral and apex wall segments are akinetic. Grade 1 left ventricular diastolic dysfunction (abnormal relaxation). Left Atrium: Normal left atrial size. Aortic Valve: The aortic valve is tricuspid. Mild aortic cuspal thickening. No significant aortic regurgitation. No aortic stenosis. Aorta: The ascending aorta is normal in size measuring 30.0 mm. Mitral Valve: Normal mitral valve structure. Mild calcification of the posterior mitral leaflet. Trivial mitral regurgitation. No mitral stenosis. IAS: No gross evidence of shunt flow seen; however the possibility of a PFO cannot be completely ruled out. Right Ventricle: Normal right ventricular size. Normal right ventricular systolic function. Normal right ventricular wall thickness. Right Atrium: Normal right atrial size. Tricuspid Valve: Normal tricuspid valve structure. No significant tricuspid regurgitation. No significant tricuspid stenosis. Pulmonic Valve: Normal pulmonary valve structure. No pulmonary stenosis. IVC: Dilated IVC with minimal respirophasic changes. Pericardium: No significant pericardial effusion. No pleural effusion. Measurements Left Ventricle Aortic Valve LabelValueNormal Value LabelValueNormal Value LVDd, 2D52.7 mmLVOT Vmax 110 cm/s LVDs, 2D38.7 mmLVOTd 20 mm IVSd, 2D10.9 mmLVOT VTI21 cm LVPWd, 2D 12.1 mmLVOT PGmax5 mmHg FS, 2D26.57 %AV Vmean87 cm/s Left Atrium AV VTI25.1 cm LabelValueNormal Value AV PGmax6 mmHg LADs Long.55 mmAV PGmean 3 mmHg LA Volume, BP 64 mlAVA (Vmax)2.9 cm-sq LAESV index, BP 36 ml/m-sq AV Vmax, Fynqkdf395 cm/s Aorta Mitral Valve LabelValueNormal Value LabelValueNormal Value Ao Asc30 mmMV E Vmax 103 cm/s MV A Vmax 139 cm/s MV E/A0.74 MV E/E' lateral 20.9 MV E/E' .7 MV Dec Time 208 ms MV E' septal0 cm/s MV E' lateral 0 cm/s Pulmonic Valve LabelValueNormal Value PV PGmax5 mmHg Contrast Details Contrast:2.0 mlOptison is requested. The patient denies contraindications and gives verbal consent. Optison contrast (3 ml of activated Optison diluted with 3 ml of saline) was used to evaluate left ventricular function to enhance endocardial border delineation Lot #: [id number] Wall Motion Scores -1 - Not Scored, 0 - Unknown, 1 - Normal or hyperkinesia,2 - Hypokinesia, 3 - Akinesia, 4 - Dyskinesia, 5 - Aneurysm Procedure Note Interface, Inc Results No Pull Forward - 01/17/2018 8:45 PM CDT Patient: REGI GUZMAN MR#: [id number] Exam Date: 01/17/2018 Transthoracic Echocardiogram [facility] [address] [place] [address] BP: 99/67 mmHg HR: : 1940 Exam Location: Height: 60.00 "(152.4 cm) Age: 77 year(s) Patient Room: 2 Weight: 178 lbs.(80.74 kg) Gender: Female Patient Status: Inpatient BSA: 1.78 m2 Ordering Physician: Kasey Junior DO Reading Physician: Liana Vance MD [facility] Lead Installer: David Pack RDCS Procedure Indication(s): NSTEMI, acute CHF Examination: TTE Complete 2D(m-mode), Complete Spectral Doppler, Color Doppler, with Contrast,Optison Conclusions Left Ventricle: Normal left ventricular size. The ejection fraction is visually estimated to be 50 %. The basal inferolateral, mid inferolateral and mid anterolateral wall segments are hypokinetic. The apical lateral and apex wall segments are akinetic. IVC: Dilated IVC with minimal respirophasic changes. Comparison Study Comparison Date: 12/01/2015 Comparison Study: Transthoracic Echocardiogram LV overall function has decreased from 65% to 50% Findings Left Ventricle: Normal left ventricular size. Normal left ventricular wall thickness. Normal left ventricular systolic function. The ejection fraction is visually estimated to be 50 %. The basal inferolateral, mid inferolateral and mid anterolateral wall segments are hypokinetic. The apical lateral and apex wall segments are akinetic. Grade 1 left ventricular diastolic dysfunction (abnormal relaxation). Left Atrium: Normal left atrial size. Aortic Valve: The aortic valve is tricuspid. Mild aortic cuspal thickening. No significant aortic regurgitation. No aortic stenosis. Aorta: The ascending aorta is normal in size measuring 30.0 mm. Mitral Valve: Normal mitral valve structure. Mild calcification of the posterior mitral leaflet. Trivial mitral regurgitation. No mitral stenosis. IAS: No gross evidence of shunt flow seen; however the possibility of a PFO cannot be completely ruled out. Right Ventricle: Normal right ventricular size. Normal right ventricular systolic function. Normal right ventricular wall thickness. Right Atrium: Normal right atrial size. Tricuspid Valve: Normal tricuspid valve structure. No significant tricuspid regurgitation. No significant tricuspid stenosis. Pulmonic Valve: Normal pulmonary valve structure. No pulmonary stenosis. IVC: Dilated IVC with minimal respirophasic changes. Pericardium: No significant pericardial effusion. No pleural effusion. Measurements Left Ventricle Aortic Valve Label Value Normal Value Label Value Normal Value LVDd, 2D 52.7 mm LVOT Vmax 110 cm/s LVDs, 2D 38.7 mm LVOTd 20 mm IVSd, 2D 10.9 mm LVOT VTI 21 cm LVPWd, 2D 12.1 mm LVOT PGmax 5 mmHg FS, 2D 26.57 % AV Vmean 87 cm/s Left Atrium AV VTI 25.1 cm Label Value Normal Value AV PGmax 6 mmHg LADs Long. 55 mm AV PGmean 3 mmHg LA Volume, BP 64 ml DEZ (Vmax) 2.9 cm-sq LAESV index, BP 36 ml/m-sq AV Vmax, Caliper 120 cm/s Aorta Mitral Valve Label Value Normal Value Label Value Normal Value Ao Asc 30 mm MV E Vmax 103 cm/s MV A Vmax 139 cm/s MV E/A 0.74 MV E/E' lateral 20.9 MV E/E' septal 22.7 MV Dec Time 208 ms MV E' septal 0 cm/s MV E' lateral 0 cm/s Pulmonic Valve Label Value Normal Value PV PGmax 5 mmHg Contrast Details Contrast: 2.0 ml Optison is requested. The patient denies contraindications and gives verbal consent. Optison contrast (3 ml of activated Optison diluted with 3 ml of saline) was used to evaluate left ventricular function to enhance endocardial border delineation Lot #: [id number] Wall Motion Scores -1 - Not Scored, 0 - Unknown, 1 - Normal or hyperkinesia, 2 - Hypokinesia, 3 - Akinesia, 4 - Dyskinesia, 5 - Aneurysm MAGNESIUM (01/17/2018 6:24 PM) Component Value Ref Range Magnesium 2.2 1.8 - 2.4 mg/dL Specimen Performing Laboratory Blood [facility] [address] [facility] [address] [place] [id number] PTT (01/17/2018 6:24 PM) Component Value Ref Range APTT 32 24 - 35 secs Specimen Performing Laboratory Blood [facility] [address] [place] [address] PROTIME/INR (01/17/2018 6:24 PM) Component Value Ref Range Protime 13.9 12.0 - 14.5 secs INR 1.1 (L) 2.0 - 3.5 Specimen Performing Laboratory Blood [facility] [address] [facility] [place] [address] Narrative Normal INR reference range (patients not on oral anticoagulants)0.9-1.1. INR Standard Intensity=(2.0 - 3.0) INR Higher Intensity=(2.5 - 3.5) BRAIN NATRIURETIC PEPTIDE (01/17/2018 6:24 PM) Component Value Ref Range BNP 2886 (H) 0 - 100 pg/mL Specimen Performing Laboratory Blood [address] [address] LAB ONLY-COMPLETE BLOOD COUNT WITH DIFFERENTIAL (01/17/2018 6:24 PM) Component Value Ref Range WBC 10.8 4.0 - 11.0 K/uL RBC 4.01 3.80 - 5.30 M/uL Hemoglobin 13.7 11.5 - 15.8 g/dL Hematocrit 39.2 35.0 - 45.0 % MCV 97.8 80.0 - 98.0 fL MCH 34.2 (H) 25.5 - 34.0 pg MCHC 34.9 31.5 - 36.5 g/dL RDW-CV 12.5 11.5 - 15.5 % RDW-SD 45.1 35.5 - 50.0 fl Platelet Count 209 140 - 400 K/uL MPV 9.1 8.5 - 12.0 fL Seg Neut Absolute 8.8 (H) 1.8 - 8.0 K/uL Lymphocytes Absolute 1.5 0.8 - 4.1 K/uL Monocytes Absolute 0.6 0.0 - 1.0 K/uL Eosinophils Absolute 0.0 0.0 - 0.7 K/uL Basophil Absolute 0.0 0.0 - 0.2 K/uL Immature Granulocyte Absolute 0.09 (H) 0.00 - 0.06 K/uL Neutrophils Abs. (Segs and Bands) 8800 /uL Neutrophils Percent 81.3 % Lymphocytes Percent 13.4 % Monocytes Percent 5.1 % Immature Granulocyte Percent 0.8 % Eosinophils Percent 0.0 % Basophil Percent 0.2 % Specimen Performing Laboratory Blood [address] [address] COMPLETE BLOOD COUNT WITH DIFFERENTIAL (01/17/2018 6:24 PM) Specimen Performing Laboratory Blood Narrative The following orders were created for panel order COMPLETE BLOOD COUNT WITH DIFFERENTIAL. Procedure Abnormality Status --------- ------ LAB ONLY-COMPLETE BLOOD ...[[id number]]AbnormalFinal result Please view results for these tests on the individual orders. COMPREHENSIVE METABOLIC PANEL (01/17/2018 6:24 PM) Component Value Ref Range Glucose 125 (H) 70 - 100 mg/dL BUN 30 (H) 6 - 22 mg/dL Creatinine 1.18 (H) 0.60 - 1.10 mg/dL BUN/Creatinine Ratio 25.4 (H) 10.0 - 25.0 Sodium 138 135 - 145 meq/L Potassium 4.3 3.5 - 5.3 meq/L Chloride 98 (L) 99 - 110 meq/L CO2 29 20 - 29 meq/L Anion Gap with K 15 6 - 20 meq/L Calcium 9.1 8.5 - 10.5 mg/dL Protein Total 6.8 6.0 - 8.2 g/dL Albumin 3.5 3.5 - 5.0 g/dL Alkaline Phosphatase 117 30 - 150 U/L AST - SGOT 54 (H) 0 - 35 U/L ALT - SGPT 33 0 - 55 U/L Bilirubin Total 0.6 0.2 - 1.2 mg/dL Corrected Calcium 9.5 8.5 - 10.5 mg/dL Age 77 Years eGFR Non- 45 (L) >=60 mL/min/1.73m2 eGFR 54 (L) >=60 mL/min/1.73m2 Specimen Performing Laboratory Blood [facility] [address] [facility] [address] [place] [address], [place] [address] TROPONIN I (01/17/2018 6:24 PM) Component Value Ref Range Troponin I 4.593 (H) 0.000 - 0.028 ng/mL Specimen Performing Laboratory Blood [facility] [address] [facility] [address] [place] [address], [place] [address] GLUCOSE BY METER, POCT (01/17/2018 6:07 PM) Component Value Ref Range Glucose POC 134 (H) 70 - 100 mg/dL Specimen Performing Laboratory Blood [facility] POINT OF CARE TESTING [address] [place] [address] in this encounter Visit Diagnoses Diagnosis NSTEMI (non-ST elevated myocardial infarction) - Primary Acute myocardial infarction, subendocardial infarction, episode of care unspecified Panlobular emphysema Other emphysema Cough Preventative health care Routine general medical examination at a health care facility Hypothyroidism due to acquired atrophy of thyroid Restless legs syndrome Restless legs syndrome (RLS) Chronic diastolic congestive heart failure Chronic diastolic heart failure Fibromyalgia syndrome Mylagia and myositis, unspecified Anxiety Anxiety state, unspecified Muscle twitching Abnormal involuntary movements Acute on chronic diastolic congestive heart failure Acute on chronic diastolic heart failure in this encounter Administered Medications Medication Order MAR Action Action Date Dose Rate Site albuterol-ipratropium (DUO-NEB) 2.5-0.5 Given 01/26/2018 01:25 CDT 3 mL mg/3 mL inhalation solution 3 mL 3 mL, Nebulization, Four times a day prn, Starting Natalia 01/26/18 at 0116, Until Discontinued, bronchospasm, shortness of breath, wheezing, 3 mL aspirin chewable tablet 81 mg Given 01/25/2018 07:48 CDT 81 mg 81 mg, Oral, Daily, First dose on Tue01/24/18 at 0900, Until Discontinued, Post-Procedure (Cath) Given 01/26/2018 08:22 CDT 81 mg Given 01/27/2018 08:32 CDT 81 mg atorvaSTATin (LIPITOR) tablet 40 mg Given 01/24/2018 20:34 CDT 40 mg 40 mg, Oral, Bedtime, First dose on Tue01/17/18 at 2100, Until Discontinued Given 01/25/2018 20:00 CDT 40 mg Given 01/26/2018 20:51 CDT 40 mg furosemide (LASIX) tablet 80 mg Given 01/26/2018 06:29 CDT 80 mg 80 mg, Oral, Two times a day diuretic, First dose on Tue01/24/18 at 1400, Until Discontinued Given 01/26/2018 14:09 CDT 80 mg Given 01/27/2018 06:05 CDT 80 mg HYDROcodone-acetaminophen (NORCO) 10-325 mg Given 01/26/2018 14:08 CDT 1 tablet tablet 1 tablet 1 tablet, Oral, Three times a day, First dose on Tue01/17/18 at 2100, Until Discontinued, Total dose of acetaminophen from all acetaminophen containing products should not exceed 4 grams (4000 mg) per day. Given 01/26/2018 20:51 CDT 1 tablet Given 01/27/2018 08:32 CDT 1 tablet isosorbide mononitrate (IMDUR) SR tablet (24 hr) Given 01/25/2018 07:48 CDT 60 mg 60 mg 60 mg, Oral, Daily, First dose on Tue01/18/18 at 0900, Until Discontinued, Tablet may be broken in half, but should not be crushed or chewed., Hold for systolic <100 Given 01/26/2018 08:22 CDT 60 mg Given 01/27/2018 08:32 CDT 60 mg levothyroxine tablet 125 mcg Given 01/25/2018 06:09 CDT 125 mcg 125 mcg, Oral, One time a day before breakfast, First dose on Tue01/18/18 at 0700, Until Discontinued Given 01/26/2018 06:29 CDT 125 mcg Given 01/27/2018 06:05 CDT 125 mcg melatonin tablet 3 mg Given 01/24/2018 20:34 CDT 3 mg 3 mg, Oral, Bedtime, First dose on Tue01/19/18 at 2100, Until Discontinued Given 01/25/2018 20:00 CDT 3 mg Given 01/26/2018 20:50 CDT 3 mg ondansetron (ZOFRAN) injection solution 4 mg Given 01/27/2018 05:18 CDT 4 mg 4 mg, IV, Every four hours prn, Starting Tue01/17/18 at 1719, Until Discontinued, nausea, vomiting, 2 mL, Use FIRST. If ineffective after 15 minutes use prochlorperazine (COMPAZINE). potassium chloride (K-TAB) CR tablet 20 mEq Given 01/26/2018 14:09 CDT 20 mEq 20 mEq, Oral, Three times a day, First dose on Tue01/24/18 at 1500, Until Discontinued, Tablet should not be crushed or chewed. Given 01/26/2018 20:51 CDT 20 mEq Given 01/27/2018 08:32 CDT 20 mEq pramipexole (MIRAPEX) tablet 1.5 mg Given 01/24/2018 20:34 CDT 1.5 mg 1.5 mg, Oral, Bedtime, First dose on Tue01/17/18 at 2100, Until Discontinued Given 01/25/2018 19:59 CDT 1.5 mg Given 01/26/2018 20:51 CDT 1.5 mg sertraline (ZOLOFT) tablet 25 mg Given 01/25/2018 07:48 CDT 25 mg 25 mg, Oral, DAILY, First dose on Tue01/18/18 at 0900, Until Discontinued Given 01/26/2018 08:23 CDT 25 mg Given 01/27/2018 08:32 CDT 25 mg ticagrelor (BRILINTA) tablet 90 mg Given 01/26/2018 08:22 CDT 90 mg 90 mg, Oral, Two times a day, First dose on Tue01/25/18 at 2100, Until Discontinued, If medication is crushed, must be mixed with water for administration. Given 01/26/2018 20:51 CDT 90 mg Given 01/27/2018 08:32 CDT 90 mg Medication Order MAR Action Action Date Dose Rate Site aspirin chewable tablet 81 mg Given 01/20/2018 08:41 CDT 81 mg 81 mg, Oral, Daily, First dose on Natalia 01/19/18 at 0900, Until Discontinued Given 01/21/2018 08:16 CDT 81 mg Given 01/22/2018 08:23 CDT 81 mg aspirin tablet 325 mg Given 01/23/2018 14:38 CDT 325 mg 325 mg, Oral, One time, 1 dose, Tue01/23/18 at 1320, Prep Orders (Cath) if inpatient - floor RN to release, Patient to receive 325 mg aspirin prior to procedure If patient currently taking aspirin at home and has not taken their dose today prior to procedure: hold this dose and administer 325 mg clopidogrel (PLAVIX) tablet 225 mg Given 01/24/2018 09:51 CDT 225 mg 225 mg, Oral, Now, 1 dose, 01/24/18 at 0935 clopidogrel (PLAVIX) tablet 75 mg Given 01/22/2018 08:24 CDT 75 mg 75 mg, Oral, Daily, First dose on Tue01/20/18 at 0900, Until Discontinued Given 01/24/2018 09:13 CDT 75 mg Given 01/25/2018 07:48 CDT 75 mg furosemide (LASIX) injection solution 40 mg Given 01/18/2018 06:36 CDT 40 mg 40 mg, IV, Two times a day diuretic, First dose on Tue01/18/18 at 0600, Until Discontinued, 4 mL, Administer SLOW IV push Hold for systolic < 100 Given 01/18/2018 16:05 CDT 40 mg furosemide (LASIX) injection solution 40 mg Given 01/23/2018 08:48 CDT 40 mg 40 mg, IV, One time, 1 dose, Tue01/23/18 at 0955, 4 mL, Administer SLOW IV push. Already given furosemide (LASIX) injection solution 40 mg Given 01/24/2018 09:13 CDT 40 mg 40 mg, IV, One time, 1 dose, 01/24/18 at 0950, 4 mL, Administer SLOW IV push furosemide (LASIX) injection solution 40 mg Given 01/24/2018 14:38 CDT 40 mg 40 mg, IV, One time, 1 dose, 01/24/18 at 1400, 4 mL, Extra dose, aware of 40 mg earlier, give at 1400. furosemide (LASIX) injection solution 80 mg Given 01/20/2018 06:57 CDT 80 mg 80 mg, IV, Two times a day diuretic, First dose on Natalia 01/19/18 at 1505, Until Discontinued, 8 mL, Administer SLOW IV push Hold for systolic < 100 gadobutrol (GADAVIST) 1 MMOL/ML solution 10 mL Given 01/18/2018 15:32 CDT 8 mL 10 mL, IV, Now imaging, 1 dose, Starting 01/18/18 at 1532, Until 01/18/18 at 1532, 10 mL hEParin (50 units/mL) in Restarted 01/20/2018 13:22 CDT 10 Units/kg/hr 16.2 mL/hr D5W premixed IV solution (STANDARD-weight based) 0-50 Units/kg/hr 80.8 kg (0-80.8 mL/hr), IV, at 0-80.8 mL/hr, Titrate, Starting 01/17/18 at 2245, Until 01/21/18 at 0932, 500 mL, Start initial infusion at 15 units/kg/hr. Notify physician if initial infusion exceeds 1,500 units/hr. Adjust heparin infusion based on sliding scale: aPTT less than 60 sec ------ Give 70 units/kg IV bolus and add 4 units/kg/hr to current rate aPTT 60-69.9 sec Give 35 units/kg IV bolus and add 2 units/kg/hr to current rate aPTT 70-120.9 sec No change (therapeutic) aPTT 121-135.9 sec Subtract 2 units/kg/hr from current rate aPTT 136-149.9 sec --------- Hold heparin for 1 hour and subtract 3 units/kg/hr from current rate aPTT 150 sec or greater - Redraw STAT aPTT and hold heparin. Draw STAT aPTT hourly until less than 150 sec, then restart heparin infusion at 3 units/kg/hr less than previous rate. AFTER PROCEDURE: When restarting infusion after it's been held for a procedure, restart infusion at "starting" dose of 15 units/kg/hr and follow titration orders. IF infusion was running at less than 15 units/kg/hr prior to procedure, restart at that rate and follow titration orders. Due to severe shortage, expiration of heparin infusion is now 96 hours (not 24). Heparin infusions are on extreme shortage. New Bag 01/20/2018 23:36 CDT 12 Units/kg/hr 19.4 mL/hr Rate Change 01/21/2018 07:57 CDT 16 Units/kg/hr 25.9 mL/hr heparin (porcine) (5000 units/1 mL) IV dose Given 01/20/2018 23:37 CDT 2,800 Units 2,800 Units 2,800 Units (rounded from 2,828 Units=35 Units/kg 80.8 kg), IV, PRN per parameter, Starting 01/17/18 at 2143, Until 01/21/18 at 0932, other (Specify), * aPTT 60 to 69.9 seconds - Give 35 units/kg IV bolus and add 2 units/kg/hr to current rate of infusion, 1 mL, Supplemental bolus doses based on aPTT: * aPTT less than 60 seconds - Give 70 units/kg IV bolus and add 4 units/kg/hr to current rate of infusion. * aPTT 60 to 69.9 seconds - Give 35 units/kg IV bolus and add 2 units/kg/hr to current rate of infusion. Round to the nearest 100 units up to a maximum bolus of heparin 7500 units. heparin (porcine) (5000 units/1 mL) IV dose Given 01/20/2018 04:48 CDT 5,700 Units 5,700 Units 5,700 Units (rounded from 5,656 Units=70 Units/kg 80.8 kg), IV, PRN per parameter, Starting 01/17/18 at 1910, Until 01/22/18 at 1244, other (Specify), * aPTT less than 60 seconds - Give 70 units/kg IV bolus and add 4 units/kg/hr to current rate of infusion, 2 mL, Supplemental bolus doses based on aPTT: * aPTT less than 60 seconds - Give 70 units/kg IV bolus and add 4 units/kg/hr to current rate of infusion. * aPTT 60 to 69.9 seconds - Give 35 units/kg IV bolus and add 2 units/kg/hr to current rate of infusion. Round to the nearest 100 units up to a maximum bolus of heparin 7500 units heparin (porcine) (5000 units/1 mL) IV dose Given 01/21/2018 07:58 CDT 5,700 Units 5,700 Units 5,700 Units (rounded from 5,656 Units=70 Units/kg 80.8 kg), IV, PRN per parameter, Starting 01/17/18 at 2143, Until 01/21/18 at 0932, other (Specify), * aPTT less than 60 seconds - Give 70 units/kg IV bolus and add 4 units/kg/hr to current rate of infusion, 2 mL, Supplemental bolus doses based on aPTT: * aPTT less than 60 seconds - Give 70 units/kg IV bolus and add 4 units/kg/hr to current rate of infusion. * aPTT 60 to 69.9 seconds - Give 35 units/kg IV bolus and add 2 units/kg/hr to current rate of infusion. Round to the nearest 100 units up to a maximum bolus of heparin 7500 units heparin (porcine) (5000 units/1 mL) IV dose Given 01/17/2018 22:25 CDT 5,700 Units 5,700 Units 5,700 Units (rounded from 5,656 Units=70 Units/kg 80.8 kg), IV, Now, 1 dose, Tue01/17/18 at 2145, 2 mL, hEParin (porcine) injection solution (5000 units/1 mL) IV for loading dose - round to the nearest 100 units up to a maximum initial bolus of hEParin 7500 units. heparin (porcine) injection solution Given 01/23/2018 14:29 CDT 5,000 Units 0-8,000 Units 0-8,000 Units, IV, Administer in Cardiac Framing Specialist, 1 dose, 01/23/18 at 1450, 8 mL, Under the direction of the provider in CCL. Do not give on the floor. heparin (porcine) injection solution Given 01/23/2018 14:49 CDT 2,000 Units 0-8,000 Units 0-8,000 Units, IV, Administer in Cardiac Framing Specialist, 1 dose, 01/23/18 at 1500, 8 mL, Under the direction of the provider in CCL. Do not give on the floor. iohexol (OMNIPAQUE) 350 mg/mL solution 90 mL Given 01/23/2018 15:06 CDT 90 mL 90 mL, Intra-arterial, One time, 1 dose, 01/23/18 at 1510, 100 mL lidocaine PF (XYLOCAINE-MPF) 1 % preservative free Given 01/23/2018 14:19 CDT 7 mL injection solution 0-40 mL 0-40 mL, Subcutaneous, Administer in Cardiac Framing Specialist, 1 dose, Tue01/23/18 at 1425, 60 mL, Given by provider in CCL. Do not give on the floor. lidocaine PF (XYLOCAINE-MPF) 1 % preservative Given 01/23/2018 14:16 CDT 10 mL free injection solution 0-40 mL 0-40 mL, Subcutaneous, Administer in Cardiac Framing Specialist, 1 dose, Tue01/23/18 at 1450, 60 mL, Given by provider in CCL. Do not give on the floor. LORazepam (ATIVAN) 2 mg/mL injection solution 0.5 Given 01/26/2018 02:12 CDT 0.5 mg mg 0.5 mg, IV, Every two hours prn, Starting Tue01/23/18 at 0859, Until Natalia 01/26/18 at 1610, other (Specify), seizure, grand mal or focal seizure of arm, 1 mL LORazepam (ATIVAN) 2 mg/mL injection solution 1 mg Given 01/27/2018 05:17 CDT 1 mg 1 mg, IV, One time, 1 dose, Tue01/27/18 at 0515, 1 mL LORazepam (ATIVAN) 2 mg/mL injection solution 2 mg Given 01/17/2018 19:17 CDT 2 mg 2 mg, IV, One time, 1 dose, Tu01/17/18 at 2020, 1 mL LORazepam (ATIVAN) 2 mg/mL injection solution 2 mg Given 01/18/2018 06:47 CDT 2 mg 2 mg, IV, Every two hours prn, Starting Tue01/17/18 at 1929, Until Tue01/23/18 at 0900, other (Specify), seizure, grand mal or focal seizure of arm, 1 mL Given 01/23/2018 09:45 CDT 2 mg metOLazone (ZAROXOLYN) tablet 2.5 mg Given 01/25/2018 07:48 CDT 2.5 mg 2.5 mg, Oral, One time a day Tue, First dose on Tue01/25/18 at 0900, Until Discontinued metoprolol tartrate (LOPRESSOR) tablet 12.5 mg Given 01/19/2018 09:16 CDT 12.5 mg 12.5 mg, Oral, Two times a day, First dose on Tue01/19/18 at 0900, Until Discontinued, Hold for SBP <90 metoprolol tartrate (LOPRESSOR) tablet 12.5 mg Given 01/19/2018 22:44 CDT 12.5 mg 12.5 mg, Oral, Two times a day, 1 dose, First dose on Tue01/19/18 at 2100, Hold for SBP <90 metoprolol tartrate (LOPRESSOR) tablet 6.25 mg Given 01/20/2018 22:08 CDT 6.25 mg 6.25 mg, Oral, Two times a day, 1 dose, First dose on Tue01/20/18 at 2100, Hold for SBP <90 potassium chloride (KLOR-CON M20) CR tablet 40 Given 01/18/2018 16:05 CDT 40 mEq mEq 40 mEq, Oral, One time, 1 dose, Tue01/18/18 at 1605, Tablet may be broken in half, but should not be crushed or chewed. Tablet may be dissolved in 4 oz of water. sodium chloride 0.9% (bolus) IV solution 500 mL Given 01/19/2018 16:43 CDT 500 mL 500 mL, IV, Bolus, 1 dose, Tue01/19/18 at 1745, 500 mL, TRO 2 hours sodium chloride 0.9% IV solution Restarted 01/20/2018 08:47 CDT 75 mL/hr IV, at 75 mL/hr, Continuous, Starting Tue01/20/18 at 0935, Until Tue01/20/18 at 0937, 1,000 mL sodium chloride 0.9% IV solution New Bag 01/23/2018 16:52 CDT 150 mL/hr IV, at 150 mL/hr, Continuous, Starting Tue01/23/18 at 1610, Until Tue01/23/18 at 1809, 1,000 mL, Post-Procedure (Cath) sodium chloride 3 % (hypertonic saline) inhalation Given 01/25/2018 19:34 CDT 3 mL solution 3 mL 3 mL, Nebulization, One time, 1 dose, Tue01/25/18 at 1315, 4 mL, For dried secretions, assistance clearing excess phlegm spironolactone (ALDACTONE) tablet 25 mg Given 01/18/2018 10:02 CDT 25 mg 25 mg, Oral, Daily, First dose on Tue01/18/18 at 0900, Until Discontinued ticagrelor (BRILINTA) tablet 0-180 mg Given 01/23/2018 14:52 CDT 180 mg 0-180 mg, Oral, Administer in Cardiac Framing Specialist, 1 dose, Tue01/23/18 at 1450, Under the direction of the provider in CCL. Do not give on the floor. ticagrelor (BRILINTA) tablet 90 mg Given 01/18/2018 10:02 CDT 90 mg 90 mg, Oral, Two times a day, First dose on Tue01/18/18 at 0900, Until Discontinued, If medication is crushed, must be mixed with water for administration. Given 01/18/2018 20:46 CDT 90 mg Given 01/19/2018 07:54 CDT 90 mg ticagrelor (BRILINTA) tablet 90 mg Given 01/19/2018 22:49 CDT 90 mg 90 mg, Oral, Two times a day, 1 dose, First dose on Tue01/19/18 at 2100, If medication is crushed, must be mixed with water for administration. valproate sodium (DEPACON) 1,000 mg in Given 01/17/2018 21:54 CDT 1,000 mg dextrose 5% 50 mL 1,000 mg, IV, One time, 1 dose, e 01/17/18 at 2110, 50 mL, Do not refrigerate; Maximum rate of infusion: 20 mg/min valproic acid (DEPAKENE) capsule 250 mg Given 01/18/2018 10:02 CDT 250 mg 250 mg, Oral, Three times a day, First dose on Tue01/18/18 at 0900, Until Discontinued, Should not be crushed or chewed Given 01/18/2018 16:05 CDT 250 mg Given 01/18/2018 20:46 CDT 250 mg in this encounter
== END 2018-01-28 16:30 | disposition short-term general hospital (02) | DRG 947 ==
LOC: VM.MS 01-27 10:45
PROVIDERS: ADMIT Family Medicine; ATTEND Family Medicine
DX: R53.83 Other fatigue (principal); I50.33 Acute on chronic diastolic (congestive) heart failure; I13.0 Hypertensive heart and chronic kidney disease with heart failure and stage 1 through stage 4 chronic kidney disease, or unspecified chronic kidney disease; N18.4 Chronic kidney disease, stage 4 (severe); R74.8 Abnormal levels of other serum enzymes; I25.10 Atherosclerotic heart disease of native coronary artery without angina pectoris; G89.29 Other chronic pain; R79.1 Abnormal coagulation profile; R94.31 Abnormal electrocardiogram [ECG] [EKG]; R06.03 Acute respiratory distress; I25.2 Old myocardial infarction; F41.9 Anxiety disorder, unspecified; E11.22 Type 2 diabetes mellitus with diabetic chronic kidney disease; E55.9 Vitamin D deficiency, unspecified; E03.9 Hypothyroidism, unspecified; M54.30 Sciatica, unspecified side; M19.90 Unspecified osteoarthritis, unspecified site; I34.0 Nonrheumatic mitral (valve) insufficiency; F32.9 Major depressive disorder, single episode, unspecified; D50.9 Iron deficiency anemia, unspecified; K29.70 Gastritis, unspecified, without bleeding; M48.00 Spinal stenosis, site unspecified; I73.9 Peripheral vascular disease, unspecified; J43.9 Emphysema, unspecified; M79.7 Fibromyalgia; Z95.5 Presence of coronary angioplasty implant and graft; Z87.891 Personal history of nicotine dependence; Z88.6 Allergy status to analgesic agent; Z91.040 Latex allergy status; Z88.8 Allergy status to other drugs, medicaments and biological substances; Z91.048 Other nonmedicinal substance allergy status; Z79.82 Long term (current) use of aspirin; Z79.891 Long term (current) use of opiate analgesic; Z79.899 Other long term (current) drug therapy; Z90.710 Acquired absence of both cervix and uterus
CPT/HCPCS: 36415; 71045; 80048; 82962; 83880; 84484; 85379; 93005; 94640; 94760; 97161-GP; A9270-GY; J1940; J7620-GY

== ENCOUNTER 2018-02-02 10:27 | Inpatient (IN) | payer MEDICARE, OTHER ==
[2018-02-02] MEDS ORDERED: Magnesium Hydroxide 400 MG/5 ML Susp 30 ML Cup PO PRN (14:29)
[2018-02-02] MEDS ORDERED: Nitroglycerin 0.4 MG Tab.SL SL PRN (14:29)
[2018-02-02] MEDS: Albuterol 0.083% 2.5 MG/3 ML Neb Soln INH PRN (16:01)
[2018-02-02] MEDS: Furosemide 40 MG Tab PO SCH (17:59)
[2018-02-02] MEDS: Acetaminophen/HYDROcodone 325-10 MG Tab PO SCH ×2 (18:02→20:36)
[2018-02-02] MEDS: Potassium Chloride 10 MEQ Tab.ER PO SCH (18:03)
[2018-02-02] MEDS: Pramipexole 0.5 MG Tab PO SCH (20:36)
[2018-02-02] MEDS: Ticagrelor 90 MG Tab PO SCH (20:36)
[2018-02-02] MEDS: atorvaSTATin 40 MG Tab PO SCH (20:36)
[2018-02-03] MEDS: Furosemide 40 MG Tab PO SCH ×2 (06:28→13:01)
[2018-02-03] MEDS: Mometasone Furoate Powder 220 MCG/Puff 14 Dose Inhaler INH SCH (06:50)
[2018-02-03] MEDS ORDERED: Levothyroxine 125 MCG Tab PO SCH (07:00)
[2018-02-03] MEDS ORDERED: Aspirin 81 MG Tab.Chew PO SCH (08:00)
[2018-02-03] MEDS: Potassium Chloride 10 MEQ Tab.ER PO SCH ×3 (08:25→17:11)
[2018-02-03] MEDS: Cholecalciferol (Vitamin D3) 1,000 Unit Tab PO SCH (08:25)
[2018-02-03] MEDS: Metolazone 2.5 MG Tab PO SCH (08:25)
[2018-02-03] MEDS: Acetaminophen/HYDROcodone 325-10 MG Tab PO SCH ×3 (08:26→20:05)
[2018-02-03] MEDS: Isosorbide Mononitrate 60 MG Tab.ER PO SCH (08:26)
[2018-02-03] MEDS: Sertraline 50 MG Tab PO SCH (08:26)
[2018-02-03] MEDS: Ticagrelor 90 MG Tab PO SCH ×2 (08:26→20:05)
[2018-02-03] MEDS ORDERED: Potassium Chloride 10 MEQ Tab.ER PO SCH (08:30)
--- NOTE | 2018-02-03 09:49 | PN ---
Progress Note for JEY GUZMAN Date: 02/03/2018 Room #: VM.212 SUBJECTIVE: The patient is feeling a little bit more tired today. She might have overdone it yesterday by walking wrong quite significantly. She is not coughing or short of breath. She does like to use a suction machine to help remove mucus from her throat that she cannot cough up. OBJECTIVE: Vital Signs: Her weight is 74.5, temperature is 36.6, pulse 67, blood pressure is 118/67, respiratory rate is 20, saturations are 96 on 2 liters. General: Objectively, she appears little bit sad, but does have strength. She has bruising multiple places on her skin. Heart: Regular rate and rhythm with 2/6 systolic ejection murmur. Lungs: Have diminished breath sounds on bases. No wheezes or crackles. Abdomen: Soft. Extremities: Have some woody induration, but much better. Psychiatric: Mood appears to be somewhat sad. LABORATORY DATA: Today shows her white blood cell count is 9.8, hemoglobin 11.7, platelets 278. Sodium 144, potassium 3.1, creatinine 1.7, GFR 29, glucose has been 101. LFTs show AST is 47. ProBNP is 8138. TSH is elevated at 6.12. Magnesium is 2.4. Urinalysis was checked and was normal (note, I reviewed the urinalysis from [facility] the day prior and had 10 to the 4th E coli, so not at a level that would need to be treated with antibiotics). IMPRESSION: 1. Deconditioning with mixed congestive heart failure exacerbation. 2. Chronic kidney disease stage 3 to 4. 3. Hypokalemia. 4. Some mild dysuria. 5. Chronic obstructive pulmonary disease. 6. Depression. 7. Hypothyroidism. PLAN: We will add more oral potassium for the patient. We will also go up on her thyroid dosing as this also may help with her heart failure. Her dose of Zoloft had been increased prior to her coming back here, so hopefully this will help with her mood. We are awaiting the results of therapist. We will recheck her lab work on 02/06/2018. GM02/03/2018 08:28:17 MODL: 02/03/2018 09:13:51 /[id number]
[2018-02-03] MEDS: Melatonin 3 MG Tab PO SCH ×2 (10:15→20:05)
--- NOTE | 2018-02-03 11:10 | HP ---
CHIEF COMPLAINT: Weakness, deconditioning. HISTORY OF PRESENT ILLNESS: The patient is a 77-year-old female who is returning back to swing bed. She initially has been hospitalized at [place] on 01/17/2018, with acute respiratory failure, hypoxemia, hypercapnia, found to have non-STEMI, was treated for heart failure. She underwent a drug-eluting stent on 01/23/2018, to her LAD and diagonal branch. She had been sent initially to swing bed on 01/27/2018. However, on 01/28/2018, she again had respiratory distress, was sent back to [place]. To note, she did have a small run of V-tach while she was hospitalized, but otherwise had more aggressive diuresis. She was noted to be somewhat confused, had a prolonged course of getting more stable. She had not placed ambulance after her heart event as well as aspirin. She was also prescribed Lasix 80 mg twice a day, metolazone 2.5 mg 3 times a day. The patient does comment that she has a little bit of left facial droop. She does have bruising of both her lower legs. She is weaker, does want to go home. It is questionable she needs to go home on oxygen or not. She did have a little bit of small pleural effusion. The patient had a D-dimer. The patient otherwise might need addition of spironolactone. She is supposed to be eventually set up for cardiac rehab, however, would not be able to have that done while she is on swing bed. She comments that she does have a little bit of facial droop on the left side of her mouth. The patient does desire to be full code level status. MEDICATIONS: She is currently on is furosemide 20 mg 5 pills twice a day, potassium 10 mEq 3 pills 3 times a day, Zoloft 50 mg 1 pill daily (recent dose increase), metolazone 2.5 mg 1 pill Tuesday, Tuesday, and Tuesday, aspirin 81 mg 1 pill daily, hydrocodone-acetaminophen 10/325 one pill 3 times a day, isosorbide mononitrate, Imdur 60 mg sustained release 1 pill daily, Nitrostat 0.4 mg 1 sublingual q.5 minutes x3 p.r.n., Flovent 44 mcg 2 puff twice a day, Lipitor 40 mg 1 pill daily, Mirapex 1.5 mg 1 pill at bedtime, melatonin 3 mg 1 pill every night, levothyroxine 125 mcg 1 pill daily, vitamin D 2000 units 1 pill daily, Brilinta 20 mg 1 pill twice a day, milk of magnesia 30 mL p.r.n., lorazepam 0.5 mg 1 pill twice daily for anxiety, albuterol 2 puffs every 4 hours as needed. ALLERGIES: Latex, natural rubber, codeine, diazepam, seasonal allergies, and tape. PAST MEDICAL HISTORY: The patient had a non-STEMI on 01/23/2018, with drug- eluting stent to LAD and diagonal branch. She has CHF, combined systolic and diastolic, chronic kidney disease stage 4. She had been on dialysis for a while. It did improve short term. She has type 2 diabetes mellitus not on insulin. She does have hypothyroidism, hypertension, carotid artery disease, gastroesophageal reflux disease, hypoxemia, hypercapnia noted in January of 2018, elevated D-dimer, felt to be due to heart failure effects. She has had depression related to the of her son recently. Also her a few years ago. She has chronic back pain on chronic narcotics, she has fibromyalgia, emphysema, arthritis of knees and back. She had peripheral edema. She has restless legs syndrome, sinus bradycardia, arthralgias of her lumbar spine, chronic constipation, gait instability, some left facial droop, questionable cerebral vascular event in the past. She has had myoclonic jerking, peripheral artery disease, spinal stenosis of lumbar region with neurogenic claudication. She has had trochanteric bursitis. She has had seasonal allergies. Tobacco use, vitamin D deficiency. SURGICAL HISTORY: She had a hysterectomy at age 40 with her ovaries left in. Cataract surgery. She has had an AV shunt fistula on 04/04/2017, an AV shunt fistula on 04/29/2017, on the left, an AV fistula on 06/14/2017, on the right, an AV shunt fistula on 07/05/2017, on the right, an AV shunt fistula on the right, revision on 07/26/2017. SOCIAL HISTORY: Her father had alcoholism issues. Her son had chronic back pain with chronic kidney disease on dialysis, hepatitis C. SOCIAL HISTORY: The patient is in 2004. 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 She had been smoking up until recent hospitalization. Alcohol use is none now, has been in the past. Walking rosa, she has walked with a cane. REVIEW OF SYSTEMS: She does comment about burning with urination. She does have bruising on her lower extremities, left and right. Does have a little bit of difficulty saying her else, does have a little bit of drooling on the left side of her mouth. She denies chest pain. She denies weakness. Will get anxious. No nausea. ABDOMEN: Bowels have been regular. Does have less fluid on her lower extremities. Has had chronic back pain. OBJECTIVE: Vital Signs: Show that her weight is 75.31 kg, height is 1.5 meters, temperature is 36.3, pulse 62, blood pressure is 130/77, respirations are 20, sats are 96%. Extremities: Objectively, the patient does have bruises on left and right lower thighs. She has Gates induration of her lower legs bilaterally. HEENT: Pupils are equal and reactive to light. Pharynx is normal. I do not appreciate facial droop. Her mouth is slightly dry, but she seems articulate normally to me. Heart: Regular rate and rhythm with 2/6 systolic ejection murmur. Lungs: Have diminished breath sounds on bases. Abdomen: Obese. Bowel sounds present. Soft, nontender. She moves all extremities symmetric. Gait was not assessed, but she has had gait problems. She does have a low back pain. IMPRESSION: 1. Deconditioning, multifactorial. 2. Recent acute congestive heart failure exacerbation. 3. [id number] myocardial infarction. 4. Hypoxemia. 5. Hypercapnia. 6. Type 2 diabetes mellitus. 7. Deconditioning. 8. Dysuria. 9. Hypertension. PLAN: The patient will be placed on swing bed. She is code level 1 status. She will receive OT, PT. We will get speech therapy as well. We will carefully monitor her electrolytes. We will also get OT for cognitive evaluation as there was a question while she was recently hospitalized. Her MoCA test was 20/30, and I am not certain when she was supposed to go back to be seen by any [place] specialist. She will continue to follow with her manager track through [place]. GM02/02/2018 12:26:42 MODL: 02/03/2018 10:52:27 /[id number]
[2018-02-03] MEDS: atorvaSTATin 40 MG Tab PO SCH (20:05)
[2018-02-03] MEDS: Pramipexole 0.5 MG Tab PO SCH (20:06)
[2018-02-04] MEDS: Furosemide 40 MG Tab PO SCH ×2 (05:32→13:05)
[2018-02-04] MEDS: Mometasone Furoate Powder 220 MCG/Puff 14 Dose Inhaler INH SCH (06:19)
[2018-02-04] MEDS: Levothyroxine 150 MCG Tab PO SCH (06:20)
[2018-02-04] MEDS: Acetaminophen/HYDROcodone 325-10 MG Tab PO SCH ×3 (07:31→21:20)
[2018-02-04] MEDS: Aspirin 81 MG Tab.EC PO SCH (07:31)
[2018-02-04] MEDS: Cholecalciferol (Vitamin D3) 1,000 Unit Tab PO SCH (07:31)
[2018-02-04] MEDS: Ticagrelor 90 MG Tab PO SCH ×2 (07:31→21:20)
[2018-02-04] MEDS: Isosorbide Mononitrate 60 MG Tab.ER PO SCH (07:31)
[2018-02-04] MEDS: Sertraline 50 MG Tab PO SCH (07:31)
[2018-02-04] MEDS: Potassium Chloride 10 MEQ Tab.ER PO SCH ×3 (07:32→17:33)
[2018-02-04] MEDS: atorvaSTATin 40 MG Tab PO SCH (21:20)
[2018-02-04] MEDS: Pramipexole 0.5 MG Tab PO SCH (21:20)
[2018-02-04] MEDS: Melatonin 3 MG Tab PO SCH (21:20)
[2018-02-05] MEDS: LORazepam 0.5 MG Tab PO PRN ×2 (02:49→22:27)
[2018-02-05] MEDS: Albuterol 0.083% 2.5 MG/3 ML Neb Soln INH PRN ×3 (02:50→22:26)
[2018-02-05] MEDS: Mometasone Furoate Powder 220 MCG/Puff 14 Dose Inhaler INH SCH (06:07)
[2018-02-05] MEDS: Furosemide 40 MG Tab PO SCH ×2 (06:08→13:09)
[2018-02-05] MEDS: Levothyroxine 150 MCG Tab PO SCH (06:09)
[2018-02-05] MEDS: Acetaminophen/HYDROcodone 325-10 MG Tab PO SCH ×3 (07:50→22:26)
[2018-02-05] MEDS: Ticagrelor 90 MG Tab PO SCH ×2 (07:50→22:28)
[2018-02-05] MEDS: Isosorbide Mononitrate 60 MG Tab.ER PO SCH (07:50)
[2018-02-05] MEDS: Sertraline 50 MG Tab PO SCH (07:51)
[2018-02-05] MEDS: Aspirin 81 MG Tab.EC PO SCH (07:51)
[2018-02-05] MEDS: Potassium Chloride 10 MEQ Tab.ER PO SCH ×3 (07:51→17:06)
[2018-02-05] MEDS: Cholecalciferol (Vitamin D3) 1,000 Unit Tab PO SCH (07:51)
[2018-02-05] MEDS: Pramipexole 0.5 MG Tab PO SCH (22:26)
[2018-02-05] MEDS: Melatonin 3 MG Tab PO SCH (22:27)
[2018-02-05] MEDS: atorvaSTATin 40 MG Tab PO SCH (22:27)
[2018-02-06] MEDS: Furosemide 40 MG Tab PO SCH ×2 (06:25→13:03)
[2018-02-06] MEDS: Levothyroxine 150 MCG Tab PO SCH (06:26)
[2018-02-06] MEDS: Mometasone Furoate Powder 220 MCG/Puff 14 Dose Inhaler INH SCH (06:43)
[2018-02-06] MEDS: Albuterol 0.083% 2.5 MG/3 ML Neb Soln INH PRN (07:07)
[2018-02-06] MEDS ORDERED: AYR NASBOTH PRN (08:44)
[2018-02-06] MEDS: Ticagrelor 90 MG Tab PO SCH ×2 (09:03→21:01)
[2018-02-06] MEDS: Sertraline 50 MG Tab PO SCH (09:03)
[2018-02-06] MEDS: Cholecalciferol (Vitamin D3) 1,000 Unit Tab PO SCH (09:03)
[2018-02-06] MEDS: Aspirin 81 MG Tab.EC PO SCH (09:04)
[2018-02-06] MEDS: Isosorbide Mononitrate 60 MG Tab.ER PO SCH (09:04)
[2018-02-06] MEDS: Metolazone 2.5 MG Tab PO SCH (09:04)
[2018-02-06] MEDS: Acetaminophen/HYDROcodone 325-10 MG Tab PO SCH ×3 (09:04→21:02)
[2018-02-06] MEDS: Spironolactone 25 MG Tab PO SCH (09:07)
[2018-02-06] MEDS: Potassium Chloride 10 MEQ Tab.ER PO SCH ×3 (09:48→18:22)
--- NOTE | 2018-02-06 10:09 | PN ---
Progress Note for JEY GUZMAN Date: 02/06/2018 Room #: VM.212 SUBJECTIVE: The patient did have some nosebleeds over the weekend. She is worried about her heart arteries that were not addressed when she had her angiogram. I stated I do not have the exact details of her angiogram report available to me. She was told that walking around is good for the rest of her blood vessels. She is also wondering about oxygen use and that she does get short of breath and stated that, that is why she is here to get stronger. She is currently on oxygen and that is our question. Determine if she needs to be on oxygen at the time of discharge home. OBJECTIVE: Vital Signs: Her weight is down to 74.1 kg, down 1.2 kg from admission. Her blood pressure is 141/61, respiratory rate 18, sats are 97% on 1 L, and pulse is 63. General: She appears stronger. She appears sad. Her speech is fairly clear. Heart: Regular rate and rhythm. Lungs: Diminished breath sounds on bases. Abdomen: Soft. Extremities: No edema. LABORATORY DATA: Lab today shows her hemoglobin is stable at 11.1, white blood cell count 7.3, and platelets are 262. Sodium is 142, potassium is up to 3.3, creatinine is 1.7 and at her baseline, BUN 62, and GFR 131. Her proBNP has improved to 5556 from 8000 on admission. IMPRESSION: 1. Exacerbation of congestive heart failure. 2. Coronary artery disease with recent drug-eluting stents. 3. Hypokalemia, improving. 4. Chronic kidney disease, improving. 5. Hypertension. 6. Type 2 diabetes mellitus. 7. Mild anemia secondary to blood loss. 8. Chronic depression. 9. Mild dysarthria. 10.Hypoxemia. 11.Type 2 diabetes mellitus. PLAN: OT is still continuing to evaluate the patient. We will repeat chest x- ray on her to see how her CHF is doing. We will add spironolactone back as this does help her save potassium and not need as much oral requirements. We will have her try using some [place] nasal gel to help with her nosebleeds. Also, she had some humidity added to her oxygen. The patient will have incentive spirometry. We will have her work with PT and OT. She is not able to do cardiac rehab while she is on swing bed. We will have her be set up to see by Cardiology for followup with her coronary artery disease due to her questions that she has. We will also make certain that Early Childhood Education Instructor sees her for counseling as well since she is dealing with depression and stressors going on. GM02/06/2018 08:50:18 MODL: 02/06/2018 09:10:30 /[id number]
[2018-02-06] MEDS: atorvaSTATin 40 MG Tab PO SCH (21:01)
[2018-02-06] MEDS: Melatonin 3 MG Tab PO SCH (21:01)
[2018-02-06] MEDS: LORazepam 0.5 MG Tab PO PRN (21:02)
[2018-02-06] MEDS: Pramipexole 0.5 MG Tab PO SCH (21:02)
[2018-02-07] MEDS: Levothyroxine 150 MCG Tab PO SCH (06:00)
[2018-02-07] MEDS: Mometasone Furoate Powder 220 MCG/Puff 14 Dose Inhaler INH SCH (06:00)
[2018-02-07] MEDS: Furosemide 40 MG Tab PO SCH ×2 (06:01→13:24)
[2018-02-07] MEDS: Aspirin 81 MG Tab.EC PO SCH (07:47)
[2018-02-07] MEDS: Isosorbide Mononitrate 60 MG Tab.ER PO SCH (07:47)
[2018-02-07] MEDS: Cholecalciferol (Vitamin D3) 1,000 Unit Tab PO SCH (07:47)
[2018-02-07] MEDS: Spironolactone 25 MG Tab PO SCH (07:48)
[2018-02-07] MEDS: Sertraline 50 MG Tab PO SCH (07:48)
[2018-02-07] MEDS: Potassium Chloride 10 MEQ Tab.ER PO SCH ×3 (07:48→17:10)
[2018-02-07] MEDS: Acetaminophen/HYDROcodone 325-10 MG Tab PO SCH ×3 (07:48→20:51)
[2018-02-07] MEDS: Ticagrelor 90 MG Tab PO SCH ×2 (07:48→20:52)
[2018-02-07] MEDS: Tiotropium Inhaler 18 MCG Inhalation Powder Cap Kit of 5 INH SCH (13:06)
[2018-02-07] MEDS: Melatonin 3 MG Tab PO SCH (20:52)
[2018-02-07] MEDS: Pramipexole 0.5 MG Tab PO SCH (20:52)
[2018-02-07] MEDS: atorvaSTATin 40 MG Tab PO SCH (20:52)
[2018-02-08] MEDS: LORazepam 0.5 MG Tab PO PRN (02:10)
[2018-02-08] MEDS: Furosemide 40 MG Tab PO SCH (06:15)
[2018-02-08] MEDS: Levothyroxine 150 MCG Tab PO SCH (06:16)
[2018-02-08] MEDS: Mometasone Furoate Powder 220 MCG/Puff 14 Dose Inhaler INH SCH (06:19)
[2018-02-08 06:27] VITALS: BP 124/77
[2018-02-08] MEDS: Cholecalciferol (Vitamin D3) 1,000 Unit Tab PO SCH (07:46)
[2018-02-08] MEDS: Ticagrelor 90 MG Tab PO SCH (07:47)
[2018-02-08] MEDS: Acetaminophen/HYDROcodone 325-10 MG Tab PO SCH (07:47)
[2018-02-08] MEDS: Sertraline 50 MG Tab PO SCH (07:47)
[2018-02-08] MEDS: Metolazone 2.5 MG Tab PO SCH (07:47)
[2018-02-08] MEDS: Spironolactone 25 MG Tab PO SCH (07:47)
[2018-02-08] MEDS: Isosorbide Mononitrate 60 MG Tab.ER PO SCH (07:47)
[2018-02-08] MEDS: Aspirin 81 MG Tab.EC PO SCH (07:47)
[2018-02-08] MEDS: Potassium Chloride 10 MEQ Tab.ER PO SCH (07:47)
[2018-02-08] MEDS: Tiotropium Inhaler 18 MCG Inhalation Powder Cap Kit of 5 INH SCH (07:48)
--- NOTE | 2018-02-08 10:02 | DISCH ---
PRIMARY DIAGNOSES: 1. Deconditioning due to multiple health factors. 2. Exacerbation of congestive heart failure. 3. Coronary artery disease with recent non-STEMI with drug-eluting stents placed. 4. Hypokalemia. 5. Chronic kidney disease. 6. Hypertension. 7. Type 2 diabetes mellitus. 8. Mild anemia, multifactorial. 9. Chronic depression. 10.Mild dysarthria. 11.Hypoxemia, improved. 12.Type 2 diabetes mellitus. 13.Depression. SUMMARY OF ADMIT HISTORY AND PHYSICAL: The patient had been in [place] for CHF and non-STEMI. She had come here to swing bed initially on 01/17/2018 and had been sent to [place]. She had come back to swing bed on 01/27/2018, but then became suddenly short of breath on 01/28/2018, was sent back to [place] and returned here on 02/02. SUMMARY OF SWING BED COURSE: She has been working with therapies. She was on oxygen continuously, was able to be weaned down from it. She was switched from continuous DuoNeb to just p.r.n. and able to be switched back to her oral inhalers. Her potassium was noted to be low while she was here, so she did receive increased oral potassium supplements, to note she did have increased anxiety and stress. She was given some lorazepam, which did help. Admit on 02/03, her hemoglobin was 11.7 by 02/08 it was up to 12.6. Her potassium on admit was 3.1, it was up to 5 on 02/03/2018, by 02/08 it was up to 3.3. Her creatinine on admit was 1.7 by 02/08, it was 1.5. Her magnesium on admit was 2.4, it was 2.5 by 02/08. Her proBNP on admit was 8136, it went down to 5556 by 02/06/2018. Her EKG done today showed sinus bradycardia, rate 56, prolonged QT interval, consider left atrial abnormality, left ventricular hypertrophy, interventricular ST changes due to ventricular hypertrophy was noted. No ST depression appreciated. The patient did have increase of her Zoloft, because of depression while she was here. She also did have resumption of her spironolactone, because of problems with hypokalemia that was persisting. Also, patient was started on Spiriva HandiHaler in place of the ipratropium and DuoNeb that she had been on. Her medications at the time of discharge will be Mirapex 0.75 mg tablets 2 at bedtime, isosorbide mononitrate 60 mg 1 pill daily, albuterol 2 puffs q.4 hours p.r.n., Nitrostat 0.4 mg sublingual q.5 minutes x3 p.r.n., vitamin D 2000 units daily, metolazone 2.5 mg 1 pill Tuesday, Tuesday, and Tuesday, Flovent 44 mcg 2 puffs b.i.d., hydrocodone acetaminophen 10/325 one pill 3 times a day, levothyroxine dose 150 mcg daily that was a dose increase, Zoloft 50 mg daily, Lipitor 40 mg daily (that was a dose increase), Brilinta 90 mg 1 pill twice a day (that is a new medication since [place] hospitalization), aspirin 81 mg 1 pill daily, Lasix 20 mg she takes 100 mg twice a day, milk of magnesia p.r.n., lorazepam 0.5 mg b.i.d. p.r.n., melatonin 3 mg at bedtime, potassium chloride 10 mEq she takes 40 mEq 3 times a day, [place] nasal gel for nasal lubrication p.r.n., spironolactone 25 mg 1 pill daily, Spiriva 18 mcg 1 puff daily. The patient will be seen by Cardiology for followup. She will see me in a week for followup time. She will also be seen by Dr. Gale in a week's time. She will be set up for cardiac rehab. The patient's code level 1. To note while patient was here she saw Aircraft Machinist Helper for depression counseling. Patient was encouraged to stay active. She is also encouraged to stop smoking. The patient did not want home health at the time of discharge. GM02/08/2018 09:02:28 MODL: 02/08/2018 09:52:22 /[id number]
== END 2018-02-08 11:20 | disposition home or self-care (01) | DRG 948 ==
LOC: VM.MS 10:27
PROVIDERS: ADMIT Family Medicine; ATTEND Family Medicine
DX: R53.1 Weakness (principal); N18.4 Chronic kidney disease, stage 4 (severe); I50.42 Chronic combined systolic (congestive) and diastolic (congestive) heart failure; I13.0 Hypertensive heart and chronic kidney disease with heart failure and stage 1 through stage 4 chronic kidney disease, or unspecified chronic kidney disease; R29.810 Facial weakness; F41.9 Anxiety disorder, unspecified; E11.22 Type 2 diabetes mellitus with diabetic chronic kidney disease; E03.9 Hypothyroidism, unspecified; I77.89 Other specified disorders of arteries and arterioles; K21.9 Gastro-esophageal reflux disease without esophagitis; F32.9 Major depressive disorder, single episode, unspecified; G89.29 Other chronic pain; M54.9 Dorsalgia, unspecified; M79.7 Fibromyalgia; J43.9 Emphysema, unspecified; M15.9 Polyosteoarthritis, unspecified; G25.81 Restless legs syndrome; R00.1 Bradycardia, unspecified; K59.09 Other constipation; R26.9 Unspecified abnormalities of gait and mobility; I73.9 Peripheral vascular disease, unspecified; M48.062 Spinal stenosis, lumbar region with neurogenic claudication; E55.9 Vitamin D deficiency, unspecified; J30.2 Other seasonal allergic rhinitis; F17.200 Nicotine dependence, unspecified, uncomplicated; R09.02 Hypoxemia; R06.89 Other abnormalities of breathing; R30.0 Dysuria; R04.0 Epistaxis; E87.6 Hypokalemia; D50.0 Iron deficiency anemia secondary to blood loss (chronic); R47.1 Dysarthria and anarthria; I25.10 Atherosclerotic heart disease of native coronary artery without angina pectoris; Z79.82 Long term (current) use of aspirin; I25.2 Old myocardial infarction; Z90.710 Acquired absence of both cervix and uterus; Z79.899 Other long term (current) drug therapy; Z88.8 Allergy status to other drugs, medicaments and biological substances; Z95.5 Presence of coronary angioplasty implant and graft; Z88.6 Allergy status to analgesic agent; Z91.040 Latex allergy status
CPT/HCPCS: 36415; 71046; 80048; 80053; 81001; 82962; 83735; 83880; 84443; 85025; 92507-GN; 92522-GN; 93005; 94640; 94664; 94760; 97110-GP; 97116-GP; 97161-GP; 97165-GO; A9270-GY; G0515-GO; J7620-GY

== ENCOUNTER 2018-02-12 00:29 | Emergency (ER) | payer MEDICARE, OTHER ==
[2018-02-12] MEDS ORDERED: Sodium Chloride 0.9% 10 ML Syringe FLUSH PRN (00:31)
[2018-02-12] MEDS ORDERED: Alum Hydroxide/Mag Hydroxide 10 ML, Lidocaine 2% 10 ML, Promethazine 12.5 MG PO ONE ×3 (00:31)
--- NOTE | 2018-02-12 00:44 | EDM.PDOC ---
ED HPI GENERAL MEDICAL PROBLEM - General Chief Complaint: Gastrointestinal Problem Stated Complaint: nausea Time Seen by Provider: 02/12/18 00:29 Source of Information: Reports: Patient History Limitations: Reports: No Limitations - History of Present Illness INITIAL COMMENTS - FREE TEXT/NARRATIVE: Patient comes into the emergency department tonight after suffering for 4 hours of nausea and gagging. Patient states that she's had a burning sensation mid sternal area. She states that she has been coughing/gagging and spitting up "stringy things". She states she is unable to vomit. She was recently hospitalized for an NM with stents (LAD and diag) and was placed into a swing bed for further rehabilitation. She was just discharged approximately 4 days ago. The pt's daughter who has been staying with her left late this afternoon and will be gone over night. The symptoms began after leaving approx 9pm. Patient denies any fever or chills, diarrhea, chest pain, or shortness of breath. She has had an issue with her potassium while she was hospitalized and they stated if she started throwing up getting nauseous that she was to report to her primary care provider right away for further evaluation. Since it is a Tuesday night patient could not get into her primary care physician reported to the emergency room for further investigation regarding this. Onset: Sudden Improves with: Reports: None Worsens with: Reports: Movement Associated Symptoms: Denies: Chest Pain, Cough, Diaphoresis, Fever/Chills, Headaches, Loss of Appetite, Malaise, Rash, Seizure, Shortness of Breath, Syncope - Related Data Allergies Allergy/AdvReac Type Severity Reaction Status Date / Time Latex, Natural Rubber Allergy open sores Verified 02/12/18 00:31 codeine AdvReac Nausea and Verified 02/12/18 00:31 Vomiting diazepam [From Valium] AdvReac stomach Verified 02/12/18 00:31 pain seasonal Allergy Other Uncoded 02/12/18 00:31 tape Allergy rash/hives Uncoded 02/12/18 00:31 Home Meds: Home Meds Albuterol Sulfate [Albuterol Sulfate HFA] 2 puff INH Q4H PRN 03/19/14 [History] Cholecalciferol (Vitamin D3) [Vitamin D3] 2,000 unit PO DAILY 03/19/14 [History] Isosorbide Mononitrate [Imdur] 60 mg PO DAILY 03/19/14 [History] Nitroglycerin [Nitrostat] 0.4 mg SL ASDIRECTED PRN 03/19/14 [History] Pramipexole Di-HCl [Mirapex] 1.5 mg PO BEDTIME 03/19/14 [History] Metolazone 2.5 mg PO MOWEFR@0800 08/10/17 [History] Fluticasone Propionate [Flovent HFA] 2 puff INH BID 12/18/17 [History] Hydrocodone/Acetaminophen [Hydrocodon-Acetaminophn 10-325] 1 tab PO TID [History] Sertraline [Zoloft] 50 mg PO DAILY 12/18/17 [History] Aspirin 81 mg PO DAILY 01/27/18 [History] LORazepam 0.5 mg PO BID PRN 02/02/18 [History] Magnesium Hydroxide [Milk of Magnesia] 30 ml PO DAILY PRN 02/02/18 [History] Melatonin/Pyridoxine HCl (B6) [Melatonin 3 mg Tablet] 3 mg PO BEDTIME 02/02/18 [ History] Furosemide [Lasix] 100 mg PO BID@0630,1400 #150 tablet 02/07/18 [Rx] Levothyroxine 150 mcg PO ACBREAKFAST #30 tablet 02/07/18 [Rx] Nasal Gel 1 applicful NASBOTH TID PRN #1 tube 02/07/18 [Rx] Potassium Chloride [Klor-Con 10] 40 meq PO TIDMEALS #360 tab.er 02/07/18 [Rx] Spironolactone [Aldactone] 25 mg PO DAILY #30 tablet 02/07/18 [Rx] Ticagrelor [Brilinta] 90 mg PO BID #180 tablet 02/07/18 [Rx] Tiotropium [Spiriva HandiHaler] 18 mcg INH DAILY #30 cap 02/07/18 [Rx] atorvaSTATin [Lipitor] 40 mg PO BEDTIME 30 Days tablet 02/07/18 [Rx] Past Medical History HEENT 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: Other (See Below) Other HEENT History: presbyopia-both,seasonal rhinitis, dermatochalasis Cardiovascular 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: CAD, Heart Failure, High Cholesterol, Hypertension, Other (See Below) Other Cardiovascular History: subclavian artery stenosis,heart palpitations, hypokalemia,hyperkalemia,sinus emma, PAD, varicose veins,peripheral edema Respiratory 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: Other (See Below) Other Respiratory History: panlobular emphysema Gastrointestinal 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: GERD, Other (See Below) Other Gastrointestinal History: nausea, dyspepsia Genitourinary 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: Chronic Renal Insuffiency, Dialysis, Renal Disease Other Genitourinary History: fistula placed in left arm 04/04/17 to start dialysis when this heals [employer] 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: Musculoskeletal 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: Arthritis, Back Pain, Chronic, Fibromyalgia, Osteoarthritis, Other (See Below) Other Musculoskeletal History: back pain,trochanteric bursitis, spinal stenosis , arthralgia of hip, arthropathy of lumbar facet joint, right side sciatica, arthritis of lumbar, bilat knees, chronic pain mgmt and contract, foot pain,RLS , DJD Neurological 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: Neuropathy, Diabetic, Other (See Below) Other Neuro History: emotional stress, Psychiatric 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: Depression, Other (See Below) Other Psychiatric History: insomia, emotional stress Endocrine/Metabolic 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: Diabetes, Type II, Hypothyroidism Hematologic 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: Anemia, Iron Deficiency, Other (See Below) Other Hematologic History: vitamin d deficiency, leukocytosis, hyperkalemia Dermatologic 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: Other (See Below) Other Dermatologic History: bruises easily, dermatochalasis - Past Surgical History HEENT Surgical 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: Cataract Surgery, Tonsillectomy Female Surgical 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: Hysterectomy Endocrine Surgical 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: Thyroidectomy Social & Family History - Family History Family Medical History: Noncontributory - Caffeine Use Caffeine Use: Reports: Soda - Living Situation & Occupation Living situation: Reports: Occupation: Disabled ED ROS GENERAL - Review of Systems Review Of Systems: See Below Constitutional: Reports: No Symptoms HEENT: Reports: No Symptoms Respiratory: Reports: No Symptoms Cardiovascular: Reports: No Symptoms GI/Abdominal: Reports: Nausea Musculoskeletal: Reports: No Symptoms Skin: Reports: No Symptoms Psychiatric: Reports: Anxiety Hematologic/Lymphatic: Reports: No Symptoms Immunologic: Reports: No Symptoms ED EXAM, GI/ABD - Physical Exam Exam: See Below Exam Limited By: No Limitations General Appearance: Alert, WD/WN, No Apparent Distress Neck: Normal Inspection, Supple, Non-Tender, Full Range of Motion Respiratory/Chest: No Respiratory Distress, Lungs Clear, No Accessory Muscle Use , Chest Non-Tender Cardiovascular: Normal Peripheral Pulses, Regular Rate, Rhythm, No Edema, No Gallop GI/Abdominal Exam: Normal Bowel Sounds, Soft, No Distention, No Abnormal Bruit, Tender (epigastrium ) Back Exam: Normal Inspection Extremities: Normal Inspection, Non-Tender, No Pedal Edema, Normal Capillary Refill Neurological: Alert, Oriented Psychiatric: Anxious Skin Exam: Warm, Dry, Intact, Normal Color, No Rash EKG INTERPRETATION EKG Date: 02/12/18 Time: 00:52 Rhythm: NSR Course - Orders/Labs/Meds Orders: Active Orders 24 hr Category Date Time Status EKG Documentation Completion [RC] STAT Care 02/12/18 00:31 Active RT Aerosol Therapy [RC] ASDIRECTED Care 02/12/18 02:57 Ordered Chest 1V Frontal [CR] Stat Exams 02/12/18 02:14 Taken Albuterol/Ipratropium [DuoNeb 3.0-0.5 MG/3 ML] Med 02/12/18 02:57 Once 3 ml NEB ONETIME ONE Sodium Chloride 0.9% [Normal Saline] 1,000 ml Med 02/12/18 01:02 Active IV ONETIME Sodium Chloride 0.9% [Saline Flush] Med 02/12/18 00:31 Active 10 ml FLUSH ASDIRECTED PRN Peripheral IV Insertion Adult [OM.PC] Stat Oth 02/12/18 00:31 Ordered Medication Orders Albuterol/Ipratropium (Duoneb 3.0-0.5 Mg/3 Ml) 3 ml NEB ONETIME ONE Stop: 02/12/18 02:58 Sodium Chloride (Normal Saline) 1,000 mls @ 500 mls/hr IV ONETIME ONE Stop: 02/12/18 03:01 Last Admin: 02/12/18 01:34 Dose: 500 mls/hr Sodium Chloride (Saline Flush) 10 ml FLUSH ASDIRECTED PRN PRN Reason: Keep Vein Open Labs: Laboratory Tests 02/12/18 02/12/18 Range/Units 01:30 01:30 WBC 10.0 (4.0-10.0) x10^3/uL RBC 3.97 L (4.00-5.50) x10^6/uL Hgb 13.0 (12.0-16.0) g/dL Hct 39.3 (33.0-47.0) % MCV 99.0 H (78.0-93.0) fL MCH 32.7 H (26.0-32.0) pg MCHC 33.1 (32.0-36.0) g/dL RDW Coeff of Pritesh 13.3 (10.0-15.0) % Plt Count 322 (130-400) x10^3/uL Neut % (Auto) 83.6 H (50.0-80.0) % Lymph % (Auto) 11.6 L (25.0-50.0) % [place] % (Auto) 3.7 (2.0-11.0) % Eos % (Auto) 0.6 (0.0-4.0) % Baso % (Auto) 0.5 (0.2-1.2) % Sodium 139 (136-145) mmol/L Potassium 3.2 L (3.5-5.1) mmol/L Chloride 99 (98-107) mmol/L Carbon Dioxide 28 (21-32) mmol/L Anion Gap 15.2 (10-20) mmol/L BUN 68 H (7-18) mg/dL Creatinine 1.7 H (0.55-1.02) mg/dL Est Cr Clr Drug Dosing TNP Estimated GFR (MDRD) 29 Glucose 170 H (74-106) mg/dL Calcium 9.3 (8.5-10.1) mg/dL Corrected Calcium 9.38 (8.5-10.1) mg/dL Total Bilirubin 0.8 (0.2-1.0) mg/dL AST 39 H (15-37) U/L ALT 43 (14-59) U/L Alkaline Phosphatase 115 (46-116) U/L Total Protein 8.5 H (6.4-8.2) g/dL Albumin 3.9 (3.4-5.0) g/dL Globulin 4.6 Albumin/Globulin Ratio 0.85 Meds: Medications Generic Name Dose Route Start Last Admin Trade Name Freq PRN Reason Stop Dose Admin Albuterol/Ipratropium 3 ml 02/12/18 02:57 Duoneb 3.0-0.5 Mg/3 Ml NEB 02/12/18 02:58 ONETIME ONE Sodium Chloride 1,000 mls @ 500 mls/hr 02/12/18 01:02 02/12/18 01:34 Normal Saline IV 02/12/18 03:01 500 mls/hr ONETIME ONE Administration Sodium Chloride 10 ml 02/12/18 00:31 Saline Flush FLUSH ASDIRECTED PRN Keep Vein Open Discontinued Medications Generic Name Dose Route Start Last Admin Trade Name Freq PRN Reason Stop Dose Admin Al Hydroxide/Mg Hydroxide 10 0 ml 02/12/18 00:31 ml/ Lidocaine HCl 10 ml/ PO 02/12/18 00:32 Promethazine HCl 12.5 mg ONETIME ONE Al Hydroxide/Mg Hydroxide 10 0 ml 02/12/18 00:42 02/12/18 00:46 ml/ Lidocaine HCl 10 ml/ PO 02/12/18 00:43 10 ml Promethazine HCl 12.5 mg ONETIME ONE Administration Hydroxyzine HCl 25 mg 02/12/18 00:41 02/12/18 00:54 Atarax PO 02/12/18 00:42 25 mg ONETIME ONE Administration Ondansetron HCl 4 mg 02/12/18 01:05 02/12/18 01:34 Zofran IVPUSH 02/12/18 01:06 4 mg ONETIME ONE Administration - Re-Assessments/Exams Free Text/Narrative Re-Assessment/Exam: 02/12/18 02:01 Pt is resting. Feeling better. All symptoms resolved. Pt requesting to go home. 02/12/18 02:30 Pt up a gagging when she sat upright 02/12/18 02:58 Pt has upper airway rhonchi, resting Departure - Departure Time of Disposition: 02:15 Disposition: Home, Self-Care 01 Condition: Good Clinical Impression: Nausea, Anxiety, COPD exacerbation GERD (gastroesophageal reflux disease) Qualifiers: Esophagitis presence: without esophagitis Qualified Code(s): K21.9 - Gastro- esophageal reflux disease without esophagitis - Discharge Information Instructions: Nausea, Adult, Gastroesophageal Reflux Disease, Adult, Easy-to- Read Referrals: Nora Landon MD [Primary Care Provider] - Forms: Interfacility Transfer EMTALA - Problem List Review Problem List Initiated/Reviewed/Updated: Yes - My Orders Last 24 Hours: My Active Orders 02/12/18 00:31 EKG Documentation Completion [RC] STAT Sodium Chloride 0.9% [Saline Flush] 10 ml FLUSH ASDIRECTED PRN Peripheral IV Insertion Adult [OM.PC] Stat 02/12/18 01:02 Sodium Chloride 0.9% [Normal Saline] 1,000 ml IV ONETIME 02/12/18 02:14 Chest 1V Frontal [CR] Stat 02/12/18 02:57 RT Aerosol Therapy [RC] ASDIRECTED Albuterol/Ipratropium [DuoNeb 3.0-0.5 MG/3 ML] 3 ml NEB ONETIME ONE - Assessment/Plan Last 24 Hours: My Active Orders 02/12/18 00:31 EKG Documentation Completion [RC] STAT Sodium Chloride 0.9% [Saline Flush] 10 ml FLUSH ASDIRECTED PRN Peripheral IV Insertion Adult [OM.PC] Stat 02/12/18 01:02 Sodium Chloride 0.9% [Normal Saline] 1,000 ml IV ONETIME 02/12/18 02:14 Chest 1V Frontal [CR] Stat 02/12/18 02:57 RT Aerosol Therapy [RC] ASDIRECTED Albuterol/Ipratropium [DuoNeb 3.0-0.5 MG/3 ML] 3 ml NEB ONETIME ONE Plan: 1. IV with hydration in ER 2. Labs completed in ER with results discussed with pt 3. GI cocktail for epigastrium discomfort 4. EKG completed in ER results discussed with pt 5. Hydroxyzine given IV for anxiety 6. Zofran for nausea 7. Pt symptoms resolved and feeling better. Pt would like to go home. 8. Education provided regarding at home medications that she has. She is also encouraged to follow up with her PCP if symptoms return. 9. Xray ordered after pt complaining of something in throat large amount of stringy mucus production noted. Dr. Stark radiologist called with stating the sputum production is related to COPD changes. 10. Duoneb and Solu-Medrol ordered to help with lung expansion. Pt is feeling better. 11. Dr. Landon contacted regarding a hospital admission under acute care. Dr. Landon stated this pt should be transferred to [facility] further endo is needed she would not admit. 12. 3:25[facility] contacted regarding transfer. Dr. Melendez. He is agreeable with the transfer.
[2018-02-12] MEDS ORDERED: GI Cocktail Oral Solution 30 ML ONE (00:46)
[2018-02-12] MEDS: Alum Hydroxide/Mag Hydroxide 10 ML, Lidocaine 2% 10 ML, Promethazine 12.5 MG PO ONE ×3 (00:46)
[2018-02-12] MEDS: hydrOXYzine HCl 25 MG Tab PO ONE (00:54)
[2018-02-12] MEDS: Sodium Chloride 0.9% 1,000 ML IV ONE (01:34)
[2018-02-12] MEDS: Ondansetron 4 MG/2 ML SDV IVPUSH ONE (01:34)
[2018-02-12 01:57] LABS: CHLORIDE,CL 99 mmol/L (98-107); SODIUM,NA 139 mmol/L (136-145)
[2018-02-12] MEDS: Albuterol/Ipratropium 3.0-0.5 MG/3 ML Neb Soln NEB ONE (03:12)
[2018-02-12 03:43] VITALS: BP 152/83
[2018-02-12] MEDS: methylPREDNISolone Sodium Succinate 125 MG/2 ML SDV IVPUSH STA (03:57)
== END 2018-02-12 04:33 | disposition home or self-care (01) ==
LOC: VM.ED 00:29
DX: K21.9 Gastro-esophageal reflux disease without esophagitis (principal); J44.1 Chronic obstructive pulmonary disease with (acute) exacerbation; F41.9 Anxiety disorder, unspecified; I25.10 Atherosclerotic heart disease of native coronary artery without angina pectoris; I13.0 Hypertensive heart and chronic kidney disease with heart failure and stage 1 through stage 4 chronic kidney disease, or unspecified chronic kidney disease; I50.9 Heart failure, unspecified; E78.00 Pure hypercholesterolemia, unspecified; N18.9 Chronic kidney disease, unspecified; E11.40 Type 2 diabetes mellitus with diabetic neuropathy, unspecified; E03.9 Hypothyroidism, unspecified; D50.9 Iron deficiency anemia, unspecified; Z88.5 Allergy status to narcotic agent; Z91.040 Latex allergy status; Z88.8 Allergy status to other drugs, medicaments and biological substances; Z79.899 Other long term (current) drug therapy; Z79.82 Long term (current) use of aspirin; Z90.710 Acquired absence of both cervix and uterus
CPT/HCPCS: 36415; 71045; 80053; 83880; 84484; 85025; 93005; 93010; 96365; 96375; 99284-GF; 99285; A9270-GY; J2405; J2930; J7030

== ENCOUNTER 2018-04-29 18:20 | Emergency (ER) | payer MEDICARE, OTHER ==
[2018-04-29] MEDS ORDERED: Sodium Chloride 0.9% 10 ML Syringe FLUSH PRN (18:45)
[2018-04-29] MEDS ORDERED: Furosemide 20 MG/2 ML VIAL IV ONE (18:47)
--- NOTE | 2018-04-29 18:54 | EDM.PDOC ---
<Karolina Escobar - Last Filed: 04/29/18 20:46> ED HPI GENERAL MEDICAL PROBLEM - General Chief Complaint: General Time Seen by Provider: 04/29/18 18:20 Source of Information: Reports: Patient History Limitations: Reports: No Limitations - History of Present Illness INITIAL COMMENTS - FREE TEXT/NARRATIVE: patient comes in to the emergency department with complaint of nausea, SOB, abdominal pain, pelvic pain, swelling, and weeping wound in right leg. patient states all of the above symptoms started approximately a week ago. She would've presented to the emergency department yesterday however she did not have enough strength to get here. She states that today her neighbor came and helped her and took over 4 hours to get here because she became too fatigued and short of breath. She states that the abdominal pain is extreme. She is also stating that she is having some urinary symptoms and discomfort. She denies any discharge. Pt is also concerned with her right lower extremity has increased redness and swelling. His also been "leaking fluid". This has increased over the course of the last 2 days. She's been placing dressings on it at home every 24 hours. She denies currently having a fever but does state she has been feeling chilled. Onset: Gradual Severity: Moderate Improves with: Reports: None Worsens with: Reports: None Lower Abdomen Pain Score (Numeric/FACES): 9 - Related Data Allergies Allergy/AdvReac Type Severity Reaction Status Date / Time Latex, Natural Rubber Allergy open sores Verified 04/29/18 18:32 codeine AdvReac Nausea and Verified 04/29/18 18:32 Vomiting diazepam [From Valium] AdvReac stomach Verified 04/29/18 18:32 pain seasonal Allergy Other Uncoded 04/29/18 18:32 tape Allergy rash/hives Uncoded 04/29/18 18:32 Home Meds: Home Meds Albuterol Sulfate [Albuterol Sulfate HFA] 2 puff INH Q4H PRN 03/19/14 [History] Cholecalciferol (Vitamin D3) [Vitamin D3] 2,000 unit PO DAILY 03/19/14 [History] Isosorbide Mononitrate [Imdur] 60 mg PO DAILY 03/19/14 [History] Nitroglycerin [Nitrostat] 0.4 mg SL ASDIRECTED PRN 03/19/14 [History] metOLazone [Metolazone] 2.5 mg PO DAILY 08/10/17 [History] Hydrocodone/Acetaminophen [Hydrocodon-Acetaminophn 10-325] 1 tab PO TID [History] Aspirin 81 mg PO DAILY 01/27/18 [History] LORazepam 0.5 mg PO BID PRN 02/02/18 [History] Magnesium Hydroxide [Milk of Magnesia] 30 ml PO DAILY PRN 02/02/18 [History] Melatonin/Pyridoxine HCl (B6) [Melatonin 3 mg Tablet] 3 mg PO BEDTIME 02/02/18 [ History] Levothyroxine 150 mcg PO ACBREAKFAST #30 tablet 02/07/18 [Rx] Ticagrelor [Brilinta] 90 mg PO BID #180 tablet 02/07/18 [Rx] atorvaSTATin [Lipitor] 40 mg PO BEDTIME 30 Days tablet 02/07/18 [Rx] Furosemide [Lasix] 60 mg PO BID@0630,1400 03/24/18 [History] Metoclopramide [Reglan] 5 mg PO QIDACANDBED 03/24/18 [History] Polyethylene Glycol 3350 [MiraLAX] 17 gm PO DAILY 03/24/18 [History] Potassium Chloride [Klor-Con 10] 50 meq PO TID 03/24/18 [History] Sennosides/Docusate Sodium [Senna-S] 1 each PO BID 03/24/18 [History] Spironolactone [Aldactone] 12.5 mg PO DAILY 03/24/18 [History] Tiotropium [place] [Spiriva Respimat] 2 puff IH DAILY 03/24/18 [History] Budesonide [Pulmicort] 0.25 mg NEB BID 04/29/18 [History] Formoterol Fumarate [Perforomist] 20 mcg NEB BID 04/29/18 [History] Pramipexole Di-HCl [Mirapex] 1.5 mg PO BID 04/29/18 [History] Sertraline [Zoloft] 50 mg PO DAILY 04/29/18 [History] Past Medical History HEENT 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: Other (See Below) Other HEENT History: presbyopia-both,seasonal rhinitis, dermatochalasis Cardiovascular 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: CAD, Heart Failure, High Cholesterol, Hypertension, Other (See Below) Other Cardiovascular History: subclavian artery stenosis,heart palpitations, hypokalemia,hyperkalemia,sinus emma, PAD, varicose veins,peripheral edema Respiratory 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: Other (See Below) Other Respiratory History: panlobular emphysema Gastrointestinal 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: GERD, Other (See Below) Other Gastrointestinal History: nausea, dyspepsia Genitourinary 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: Chronic Renal Insuffiency, Dialysis, Renal Disease Other Genitourinary History: fistula placed in left arm 04/04/17 to start dialysis when this heals [employer] 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: Musculoskeletal 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: Arthritis, Back Pain, Chronic, Fibromyalgia, Osteoarthritis, Other (See Below) Other Musculoskeletal History: back pain,trochanteric bursitis, spinal stenosis , arthralgia of hip, arthropathy of lumbar facet joint, right side sciatica, arthritis of lumbar, bilat knees, chronic pain mgmt and contract, foot pain,RLS , DJD Neurological 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: Neuropathy, Diabetic, Other (See Below) Other Neuro History: emotional stress, Psychiatric 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: Depression, Other (See Below) Other Psychiatric History: insomia, emotional stress Endocrine/Metabolic 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: Diabetes, Type II, Hypothyroidism Hematologic 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: Anemia, Iron Deficiency, Other (See Below) Other Hematologic History: vitamin d deficiency, leukocytosis, hyperkalemia Dermatologic 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: Other (See Below) Other Dermatologic History: bruises easily, dermatochalasis - Past Surgical History HEENT Surgical 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: Cataract Surgery, Tonsillectomy Female Surgical 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: Hysterectomy Endocrine Surgical 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: Thyroidectomy Social & Family History - Family History Family Medical History: Noncontributory - Caffeine Use Caffeine Use: Reports: Soda - Living Situation & Occupation Living situation: Reports: Occupation: Disabled ED [employer] [facility] GENERAL - Review of Systems Review Of Systems: See Below Constitutional: Reports: Chills, Malaise, Weakness, Fatigue Respiratory: Reports: Shortness of Breath, Cough, Sputum Cardiovascular: Reports: Dyspnea on Exertion, Edema Endocrine: Reports: Fatigue GI/Abdominal: Reports: Abdominal Pain, Diarrhea, Nausea : Reports: Frequency, Pain Musculoskeletal: Reports: Leg Pain (right lower extremity ) Skin: Reports: Mottled Neurological: Reports: No Symptoms Psychiatric: Reports: No Symptoms Hematologic/Lymphatic: Reports: No Symptoms Immunologic: Reports: No Symptoms ED EXAM, GENERAL - Physical Exam Exam: See Below Exam Limited By: No Limitations General Appearance: Alert, WD/WN, No Apparent Distress Eye Exam: Bilateral Eye: EOMI, PERRL Head: Atraumatic, Normocephalic Neck: Normal Inspection, Supple, Non-Tender, Full Range of Motion Respiratory/Chest: Decreased Breath Sounds (bases ), Crackles (left side ), Rhonchi Cardiovascular: Tachycardia, Gallop/S3. No: No Edema Peripheral Pulses: 1+: Posterior Tibial (L), Posterior Tibial (R) GI/Abdominal: Distended, Tender, Abnormal Bowel Sounds Back Exam: Normal Inspection, Full Range of Motion Extremities: Normal Inspection, Pedal Edema, Increased Warmth, Mottled, Redness Neurological: Alert, Oriented, Abnormal Gait Psychiatric: Normal Affect, Normal Mood Skin Exam: Warm, Dry, Increased Warmth, Pallor Course - Vital Signs Last Recorded V/S: Last Vital Signs Temp 36.9 C 04/29/18 18:20 Pulse 66 04/29/18 20:18 Resp 20 04/29/18 20:18 BP 126/80 04/29/18 20:18 Pulse Ox 96 04/29/18 20:18 - Orders/Labs/Meds Orders: Active Orders 24 hr Category Date Time Status EKG Documentation Completion [RC] STAT Care 04/29/18 18:45 Active Insert Morillo Catheter [Insert Urinary Catheter] [OM.PC] Care 04/29/18 20:30 Ordered Q24H Oxygen Therapy, ED [RC] ASDIRECTED Care 04/29/18 18:48 Active Urinary Catheter Assessment [RC] ASDIRECTED Care 04/29/18 20:21 Active Abdomen Pelvis wo Cont [CT] Stat Exams 04/29/18 18:45 Taken Chest 1V Frontal [CR] Stat Exams 04/29/18 18:45 Taken CULTURE BLOOD [BC] Stat Lab 04/29/18 19:11 Results CULTURE BLOOD [BC] Stat Lab 04/29/18 19:22 Results UA W/MICROSCOPIC [URIN] Stat Lab 04/29/18 19:57 Ordered Dextrose 50% in Water Med 04/29/18 21:51 Ordered 50 ml IV ASDIRECTED PRN Sodium Chloride 0.9% [Saline Flush] Med 04/29/18 18:45 Active 10 ml FLUSH ASDIRECTED PRN Blood Culture x2 Reflex Set [OM.PC] Stat Oth 04/29/18 18:45 Ordered Peripheral IV Insertion Adult [OM.PC] Stat Ot 04/29/18 18:45 Ordered Medication Orders Dextrose/Water (Dextrose 50% In Water) 50 ml IV ASDIRECTED PRN PRN Reason: Hypoglycemia Sodium Chloride (Saline Flush) 10 ml FLUSH ASDIRECTED PRN PRN Reason: Keep Vein Open Last Admin: 04/29/18 20:09 Dose: 10 ml Labs: Laboratory Tests 04/29/18 04/29/18 04/29/18 Range/Units 19:11 19:11 19:11 WBC 8.7 (4.0-10.0) x10^3/uL RBC 3.86 L (4.00-5.50) x10^6/uL Hgb 11.9 L D (12.0-16.0) g/dL Hct 37.0 (33.0-47.0) % MCV 95.9 H D (78.0-93.0) fL MCH 30.8 (26.0-32.0) pg MCHC 32.2 (32.0-36.0) g/dL RDW Coeff of Pritesh 15.6 H (10.0-15.0) % Plt Count 225 D (130-400) x10^3/uL Neut % (Auto) 87.3 H (50.0-80.0) % Lymph % (Auto) 7.6 L (25.0-50.0) % [place] % (Auto) 5.0 (2.0-11.0) % Eos % (Auto) 0.0 (0.0-4.0) % Baso % (Auto) 0.1 L (0.2-1.2) % Sodium 143 (136-145) mmol/L Potassium 6.1 H* D (3.5-5.1) mmol/L Chloride 110 H (98-107) mmol/L Carbon Dioxide 24 (21-32) mmol/L Anion Gap 15.1 (10-20) mmol/L BUN 48 H (7-18) mg/dL Creatinine 1.4 H (0.55-1.02) mg/dL Est Cr Clr Drug Dosing 24.55 mL/min Estimated GFR (MDRD) 37 Glucose 159 H (74-106) mg/dL Lactic Acid 1.5 (0.4-2.0) mmol/L Calcium 9.0 (8.5-10.1) mg/dL Corrected Calcium 9.72 (8.5-10.1) mg/dL Total Bilirubin 0.7 (0.2-1.0) mg/dL AST 44 H (15-37) U/L ALT 50 (14-59) U/L Alkaline Phosphatase 136 H (46-116) U/L Creatine Kinase 31 (26-192) U/L Troponin I 0.020 (<=0.056) ng/mL NT-Pro-B Natriuret Pep 60309 H (<=450) pg/mL Total Protein 7.0 (6.4-8.2) g/dL Albumin 3.1 L (3.4-5.0) g/dL Globulin 3.9 Albumin/Globulin Ratio 0.79 Urine Color (YELLOW) Urine Appearance (CLEAR) Urine pH (5.0-8.0) Ur Specific [place] Urine Protein (NEGATIVE) mg/dL Urine Glucose (UA) (NEGATIVE) mg/dL Urine Ketones (NEGATIVE) mg/dL Urine Occult Blood (NEGATIVE) Urine Nitrite (NEGATIVE) Urine Bilirubin (NEGATIVE) Urine Urobilinogen (0.2) EU/dL Ur Leukocyte Esterase (NEGATIVE) Urine RBC (NOT SEEN) /HPF Urine WBC (NOT SEEN) /HPF Ur Squamous Epith Cells (NEGATIVE) /HPF Ur Renal Epithelial Cell (NEGATIVE) /HPF Urine Bacteria (NEGATIVE) /HPF Urine Mucus (NEGATIVE) /LPF 04/29/18 Range/Units 19:57 WBC (4.0-10.0) x10^3/uL RBC (4.00-5.50) x10^6/uL Hgb (12.0-16.0) g/dL Hct (33.0-47.0) % MCV (78.0-93.0) fL MCH (26.0-32.0) pg MCHC (32.0-36.0) g/dL RDW Coeff of Pritesh (10.0-15.0) % Plt Count (130-400) x10^3/uL Neut % (Auto) (50.0-80.0) % Lymph % (Auto) (25.0-50.0) % [place] % (Auto) (2.0-11.0) % Eos % (Auto) (0.0-4.0) % Baso % (Auto) (0.2-1.2) % Sodium (136-145) mmol/L Potassium (3.5-5.1) mmol/L Chloride (98-107) mmol/L Carbon Dioxide (21-32) mmol/L Anion Gap (10-20) mmol/L BUN (7-18) mg/dL Creatinine (0.55-1.02) mg/dL Est Cr Clr Drug Dosing mL/min Estimated GFR (MDRD) Glucose (74-106) mg/dL Lactic Acid (0.4-2.0) mmol/L Calcium (8.5-10.1) mg/dL Corrected Calcium (8.5-10.1) mg/dL Total Bilirubin (0.2-1.0) mg/dL AST (15-37) U/L ALT (14-59) U/L Alkaline Phosphatase (46-116) U/L Creatine Kinase (26-192) U/L Troponin I (<=0.056) ng/mL NT-Pro-B Natriuret Pep (<=450) pg/mL Total Protein (6.4-8.2) g/dL Albumin (3.4-5.0) g/dL Globulin Albumin/Globulin Ratio Urine Color Yellow (YELLOW) Urine Appearance Clear (CLEAR) Urine pH 7.5 (5.0-8.0) Ur Specific [place] 1.015 Urine Protein >=300 H (NEGATIVE) mg/dL Urine Glucose (UA) Negative (NEGATIVE) mg/dL Urine Ketones Negative (NEGATIVE) mg/dL Urine Occult Blood Negative (NEGATIVE) Urine Nitrite Negative (NEGATIVE) Urine Bilirubin Negative (NEGATIVE) Urine Urobilinogen 1.0 (0.2) EU/dL Ur Leukocyte Esterase Negative (NEGATIVE) Urine RBC 0-5 (NOT SEEN) /HPF Urine WBC 0-5 (NOT SEEN) /HPF Ur Squamous Epith Cells Rare (NEGATIVE) /HPF Ur Renal Epithelial Cell Rare H (NEGATIVE) /HPF Urine Bacteria Not seen (NEGATIVE) /HPF Urine Mucus Not seen (NEGATIVE) /LPF Meds: Medications Generic Name Dose Route Start Last Admin Trade Name Freq PRN Reason Stop Dose Admin Dextrose/Water 50 ml 04/29/18 21:51 Dextrose 50% In Water IV ASDIRECTED PRN Hypoglycemia Sodium Chloride 10 ml 04/29/18 18:45 04/29/18 20:09 Saline Flush FLUSH 10 ml ASDIRECTED PRN Administration Keep Vein Open Discontinued Medications Generic Name Dose Route Start Last Admin Trade Name Freq PRN Reason Stop Dose Admin Calcium Chloride 1 gm 04/29/18 21:50 04/29/18 21:55 Calcium Chloride 10% IVPUSH 04/29/18 21:51 1 gm ONETIME ONE Administration Ceftriaxone Sodium 1 gm 04/29/18 21:37 04/29/18 21:49 Rocephin IVPUSH 04/29/18 21:38 1 gm STAT ONE Administration Furosemide 20 mg 04/29/18 18:47 04/29/18 20:08 Lasix IV 04/29/18 18:48 20 mg ONETIME ONE Administration Insulin Human Regular 10 unit 04/29/18 21:50 Humulin R IV 04/29/18 21:51 ONETIME ONE Sodium Polystyrene Sulfonate 15 gm 04/29/18 19:58 04/29/18 20:13 Kayexalate PO 04/29/18 19:59 15 gm ONETIME ONE Administration Departure - Departure Disposition: DC/Tfer to [facility] 02 Clinical Impression: CHF, Congestive heart failure, CKD (chronic kidney disease), stage III, Hyperkalemia, diminished renal excretion - Discharge Information Referrals: Nora Landon MD [Primary Care Provider] - Forms: ED Department Discharge, Interfacility Transfer EMTALA - My Orders Last 24 Hours: My Active Orders 04/29/18 21:51 Dextrose 50% in Water 50 ml IV ASDIRECTED PRN - Assessment/Plan Last 24 Hours: My Active Orders 04/29/18 21:51 Dextrose 50% in Water 50 ml IV ASDIRECTED PRN Assessment:: 1. abdomen pain 2. nausea 3. leg edema 4. Shortness of breath Plan: 1. labs completely in the ER results reviewed with the patient 2. X-ray completed results reviewed with patient 3. CT scan completed in the ER 4. IV started with lasix given 5. Kayexalate given for K+ level 6.1 critical value 6. Morillo cath placed to measure urine output and obtain sample Report given to Alessio BUCKLEY. Care transferred. <JeffAlessio W - Last Filed: 04/29/18 22:07> Course - Re-Assessments/Exams Free Text/Narrative Re-Assessment/Exam: 04/29/18 22:00 Assumed care for Karolina KEITH Escobar. Chest x-ray was reviewed, and pt. was noted to have a L lower lobe infiltrate. Pt. was given Rocephin 1 gm IV. In terms of her hyperkalemia, pt. was given calcium chloride 1 gm IV, Insulin 10u IV, and D50 25 gm IV. Spoke with Dr. Guardado, hospitalist who accepts pt. to [facility]. She will be transferred via [facility] ambulance. Departure - Departure Time of Disposition: 22:04 Condition: Critical - Assessment/Plan Plan: See above. Dr. Guardado will accept the pt. Transfer via [facility] ground. She is a code level 1.
[2018-04-29 19:55] LABS: ANION GAP 15.1 mmol/L (10-20)
[2018-04-29] MEDS ORDERED: Sodium Polystyrene Sulfonate 15 GM/60 ML Susp 60 ML Bot PO ONE (19:58)
[2018-04-29] MEDS ORDERED: cefTRIAXone 1 GM Vial IVPUSH ONE (21:37)
[2018-04-29] MEDS ORDERED: Insulin Regular, Human 100 Units/ML 3 ML Vial IV ONE (21:50)
[2018-04-29] MEDS ORDERED: Calcium Chloride 10% 1 GM/10 ML Syringe IVPUSH ONE (21:50)
[2018-04-29] MEDS ORDERED: 50% Dextrose in Water 50 ML Syringe IV PRN (21:51)
[2018-04-29] MEDS ORDERED: 50% Dextrose in Water 50 ML Syringe IV ONE (22:16)
[2018-04-29 22:43] VITALS: BP 140/76
== END 2018-04-29 22:34 | disposition short-term general hospital (02) ==
LOC: VM.ED 18:20
DX: I13.0 Hypertensive heart and chronic kidney disease with heart failure and stage 1 through stage 4 chronic kidney disease, or unspecified chronic kidney disease (principal); I50.9 Heart failure, unspecified; N18.3 Chronic kidney disease, stage 3 (moderate); D63.1 Anemia in chronic kidney disease; E11.22 Type 2 diabetes mellitus with diabetic chronic kidney disease; E87.5 Hyperkalemia; R10.30 Lower abdominal pain, unspecified; R11.0 Nausea; I25.10 Atherosclerotic heart disease of native coronary artery without angina pectoris; E78.00 Pure hypercholesterolemia, unspecified; E11.40 Type 2 diabetes mellitus with diabetic neuropathy, unspecified; Z91.040 Latex allergy status; Z88.5 Allergy status to narcotic agent; Z91.09 Other allergy status, other than to drugs and biological substances; Z79.899 Other long term (current) drug therapy; Z99.2 Dependence on renal dialysis
CPT/HCPCS: 36415; 51702; 71045; 74176; 80053; 81001; 82550; 83605; 83880; 84484; 85025; 87040; 93005; 96374; 96375; 99284; 99285; A9270; J0696; J1815; J1940; J7050; J7060